=== PATIENT | female | born 1955 | race Caucasian/White ===

== ENCOUNTER 2019-06-13 14:18 | Emergency (ER) | payer OTHER, MEDICARE, SELFPAY ==
[2019-06-13 15:44] VITALS: BP 158/82; PULSE 88; RESP 16; TEMP 37; O2SAT 98; BMI 23.0
--- NOTE | 2019-06-13 15:47 | DI.RAD.S_ITS ---
PROCEDURE: XR HIP W PEL IF DONE RT 2V INDICATIONS: right hip pain shooting into groin TECHNIQUE: AP pelvis with lateral view(s) of the right hip(s). COMPARISON: [facility], CR, XR PELVIS WITH LATERAL HIP RIGHT, 05/06/2017, 13:55. [facility], [facility], [id number] W PEL IF PERFORMED, 04/21/2017, 9:22. [facility], CR, [id number] W PEL IF PERFORMED, 04/21/2017, 11:29. FINDINGS: Bones: No fractures or dislocations. Pelvic ring appears intact. No suspicious bony lesions. Unremarkable right hip arthroplasty hardware is seen. No findings of hardware failure or hardware loosening are seen. There is moderate superior joint space narrowing seen of the contralateral left hip, with associated remodeling changes with subchondral sclerosis and osteophyte formation. Soft tissues: The visualized bowel gas pattern is normal. No suspicious soft tissue calcifications. IMPRESSION: Unremarkable right hip arthroplasty hardware. Moderate left hip degenerative change. Dictated by: Mor Zepeda M.D. on 06/13/2019 at 15:13 Approved by: Mor Zepeda M.D. on 06/13/2019 at 15:14
--- NOTE | 2019-06-13 18:38 | ED.LOWEXIN ---
HPI - Extremity Injury (Lower) General Chief Complaint: Extremity Injury, Lower Stated Complaint: Extreme Right Hip Pain, Surgery 2 yrs ago Time Seen by Provider: 06/13/19 18:38 Source: patient Mode of arrival: Wheelchair Limitations: no limitations History of Present Illness HPI Narrative: The patient complains of right hip pain for about 1 week. She has had no trauma to the right hip. She has pain radiating from the right lower back to the right posterior hip. She underwent right YUNIOR about 2 years ago. The ear prior to the right hip surgery she underwent left foot surgery. She has recently seen a bundle tier and labeler because of an increased arch the left foot following surgery, and difficulty with flexion the left foot. She has been walking with a limp, though limp has increased. She has no numbness or weakness to the right leg. She has no bowel or bladder incontinence. There is no pain shooting down the right leg. She was evaluated for scoliosis as a child, scoliosis does not seem to ever been a clinical problem for her. She has no GI or symptoms. Related Data Home Medications Medication Instructions Recorded Confirmed adalimumab [Humira Pen 40 mg SQ #0 03/31/17 [id number] HS] amitriptyline 10 mg PO HS #0 03/31/17 cyclobenzaprine 10 mg PO QDAY #0 03/31/17 folic acid 2 mg PO QDAY #0 03/31/17 gabapentin [Neurontin] 600 mg PO QID #0 03/31/17 hydroxychloroquine [Plaquenil] 400 mg PO QDAY #0 03/31/17 methotrexate sodium [Trexall] 7.5 mg PO #0 03/31/17 simvastatin 10 mg PO QDAY #0 03/31/17 Previous Rx's Medication Instructions Recorded hydroxyzine pamoate [Vistaril] 25 mg PO Q4HP PRN #60 cap 04/23/17 oxycodone 5 mg PO Q4HP PRN #90 tab 04/23/17 ibuprofen 600 mg PO Q6-8H PRN #60 tab 06/13/19 tramadol 50 mg PO Q6H PRN #20 tab 06/13/19 Allergies Allergy/AdvReac Type Severity Reaction Status Date / Time No Known Allergies Allergy Uncoded 06/13/19 15:46 Review of Systems Review of Systems ROS Unobtainable: All systems reviewed & are unremarkable except as noted in HPI and below Constitutional Constitutional: Denies lethargy and Denies weakness Gastrointestinal Gastrointestinal: Denies abdominal pain, Denies change in bowel habits, Denies diarrhea, Denies nausea and Denies vomiting Genitourinary Genitourinary: Denies urinary incontinence and Denies urinary urgency Musculoskeletal Musculoskeletal: Reports back pain and Reports numbness (Right lateral calf) Comments: Instability when ambulating. Integumentary/Breasts Skin/Breast: Denies pruritus, Denies erythema, Denies rash and Denies wounds Neurologic Neurologic: Reports numbness (Right lateral calf) and Denies weakness Patient History Medical History (Updated 06/13/19 @ 19:18 by Victor Hugo Vasquez MD) Hyperlipidemia (Acute) Osteoarthritis (Acute) Surgical History (Updated 06/13/19 @ 19:18 by Victor Hugo Vasquez MD) H/O total hip arthroplasty (Acute) Status post left foot surgery (Acute) Social History Smoking Status: Never smoker alcohol intake frequency: holidays/special occasions only Substance Use Type: does not use Exam Initial Vital Signs Initial Vital Signs: Vital Signs Temperature 98.6 F 06/13/19 15:44 Pulse Rate 88 06/13/19 15:44 Respiratory Rate 16 06/13/19 15:44 Blood Pressure 158/82 H 06/13/19 15:44 Pulse Oximetry 98 06/13/19 15:44 Const General: cooperative and well developed Nutritional Appearance: well nourished Orientation: alert, awake and oriented x3 GI Inspection: non-distended Palpation: soft, no hepatosplenomegaly, No guarding and No tender Auscultation: normal bowel sounds Back/Spine/Pelvis Back: No CVA tenderness Other: Scoliosis. Right SI and right hip tenderness. No palpable abnormalities. Skin General: no rashes or lesions noted Neuro General: alert and oriented x3 Speech: speech normal Other: Weakness was left foot flexion. Decreased light touch sensation to the left L5 distribution. Extrem General: full ROM, no pedal edema and no calf tenderness Other: Increased large to the left foot, surgical changes to the left foot. Normal dorsalis pedis pulses bilaterally. Course Course Course Narrative: Pelvis and right hip x-ray show no acute findings. The right YUNIOR is stable. Her problem seems to be more focused from her lower back. She has scoliosis, ataxia, and left leg weakness. She is discharged on Motrin and tramadol, and advised to follow up with Orthopedics, Dr. Orosco. Orders Ordered: ED Orders 06/13/19 15:47 XR hip w pel if done RT 2V Stat Discontinued Medications Ketorolac Tromethamine (Toradol) 30 mg IM NOW ONE Stop: 06/13/19 18:50 Last Admin: 06/13/19 18:59 Dose: 30 mg Documented by: LANETTE Vital Signs Vital signs: Vital Signs - 8 hr 06/13/19 15:44 Temperature 98.6 F Pulse Rate 88 Respiratory Rate 16 Blood Pressure 158/82 H Pulse Oximetry 98 Discharge Plan Departure Patient Disposition: Home Clinical Impression: Acute pain of right hip Instructions: DI for Hip Pain Activity Restrictions/Additional Instructions: Use a cane when walking Motrin 600 mg every 6-8 hours as needed for pain. Tramadol every 6 hours as needed for added pain control. I recommend contacting Dr. Orosco, orthopedics, for follow-up regarding back/hip pain. Return to the ER as needed. Prescriptions: New ibuprofen 600 mg tablet 600 mg PO Q6-8H PRN (Reason: pain) Qty: 60 RF: 0 tramadol 50 mg tablet 50 mg PO Q6H PRN (Reason: pain) Qty: 20 RF: 0 No Action simvastatin 10 MG tablet 10 mg PO QDAY Qty: 0 RF: 0 gabapentin [Neurontin] 600 MG tablet 600 mg PO QID Qty: 0 RF: 0 amitriptyline 10 MG tablet 10 mg PO HS Qty: 0 RF: 0 adalimumab [Humira Pen Ppjf-Nntjjj-Acco HS] 40 MG/0.8 ML pen injector kit 40 mg SQ Qty: 0 RF: 0 methotrexate sodium [Trexall] 7.5 MG tablet 7.5 mg PO Qty: 0 RF: 0 cyclobenzaprine 10 MG tablet 10 mg PO QDAY Qty: 0 RF: 0 hydroxychloroquine [Plaquenil] 200 MG tablet 400 mg PO QDAY Qty: 0 RF: 0 folic acid 0.8 MG tablet 2 mg PO QDAY Qty: 0 RF: 0 oxycodone 5 MG tablet 5 mg PO Q4HP PRNQty: 90 RF: 0 hydroxyzine pamoate [Vistaril] 25 MG capsule 25 mg PO Q4HP PRNQty: 60 RF: 1 Referrals: Cristina Orosco MD [Physician] - Chrissy Looney PA-C [Primary Care Provider] -
[2019-06-13] MEDS: KETOROLAC 60 MG/2 ML VIAL 30 MG IM (18:59)
--- NOTE | 2019-06-13 19:11 | PC.NURSE ---
aching for couple weeks, sudden onset of pain today after getting up from lunch in hip radiating into groin.No injury or trauma. CMS intact. Slow gait with a limp.
[2019-06-13 19:12] VITALS: BP 152/68; PULSE 82; RESP 16; O2SAT 98
== END 2019-06-13 19:43 | disposition home or self-care (01) ==
PROVIDERS: Emergency Provider Emergency Medicine; Family Provider Physician Assistant Medical; PCP Physician Assistant Medical
DX: M25.551 Pain in right hip (principal)
CPT/HCPCS: 73502; 96372; 99282; 99283; J1885

== ENCOUNTER → 2019-08-02 08:44 | Outpatient (CLI) | payer OTHER, MEDICARE, SELFPAY ==
--- NOTE | 2019-08-02 | DI.MRI.S_ITS ---
PROCEDURE: MR LUMBAR SPINE WO CON INDICATIONS: CERVICALGIA LOW BACK PAIN TECHNIQUE: Noncontrast sagittal T1 spin echo and T2 fast echo, sagittal STIR, axial T1 and T2 fast spin echo through the lumbar spine. In cases with scoliosis, additional coronal T2 fast spin echo may be performed. COMPARISON: [facility] [place], CR, XR LUMBAR SPINE 2 OR 3 VIEWS, 07/13/2019, 13:23. FINDINGS: Image quality: Excellent. Alignment and Curvature: There is normal bony alignment. Bone Marrow: There is a intraosseous hemangioma in T12. No acute vertebral body compression fractures. Spinal Cord: Conus medullaris terminates at the L1-L2 level. Visualized cord demonstrates normal signal and size. Paraspinous Soft Tissues: No paravertebral masses. L1-L2: Preserved disc height. Mild disc desiccation. There is mild posterior disc bulge. Mild bilateral facet arthropathy and hypertrophy of ligamentum flavum. The central canal is patent. No foraminal stenosis. L2-L3: Mild loss disc height and disc desiccation. There is diffuse posterior disc bulge and disc osteophyte complex. Mild bilateral facet arthropathy and hypertrophy of ligamentum flavum. The central canal is mildly narrowed. No foraminal stenosis. L3-L4: Mild loss disc height and disc desiccation. There is diffuse posterior disc bulge and disc osteophyte complex. Moderate bilateral facet arthropathy and mild hypertrophy of ligamentum flavum. The central canal is mildly narrowed. Marked bilateral foraminal stenosis. L4-L5: Mild loss disc height and disc desiccation. There is diffuse posterior disc bulge. There is a small posterior central annular fissure. Mild bilateral facet facet arthropathy and hypertrophy of ligamentum flavum. The central canal is mildly narrowed. No foraminal stenosis. L5-S1: Mild loss disc height and disc desiccation. There is diffuse posterior disc bulge. There is a small posterior central annular fissure. Mild bilateral facet arthropathy. The central canal is patent. No foraminal stenosis. 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 IMPRESSION: 1. Multilevel degenerative disc disease and facet arthropathy as described. 2. Mild central canal stenosis at L2-L3, L3-L4, and L4-L5. 3. Mild foraminal stenosis at L3-L4 bilaterally. Dictated by: Zee Kwok M.D. on 08/02/2019 at 10:30 Approved by: Zee Kwok M.D. on 08/02/2019 at 10:42
--- NOTE | 2019-08-02 | DI.MRI.S_ITS ---
PROCEDURE: MR CERVICAL SPINE WO CON INDICATIONS: CERVICALGIA LOW BACK PAIN TECHNIQUE: Noncontrast sagittal T1 spin echo and T2 fast spin echo, sagittal STIR, foraminal oblique sagittal T2 fast spin echo, and axial gradient echo or T2 fast spin echo through the cervical spine. COMPARISON: None. FINDINGS: Image quality: Excellent. Alignment and Curvature: There is grade one anterolisthesis at C3-C4 and C5 and C5. Bone Marrow: Marrow demonstrates normal overall signal. Spinal Cord: Visualized spinal cord has normal size and signal. No cerebellar tonsillar herniation. Paraspinous Soft Tissues: No paravertebral masses. Prevertebral soft tissues are normal in thickness. C2-C3: Normal appearance. C3-C4: Preserved disc height. Mild disc desiccation. There is mild posterior disc bulge. Moderate right and mild left facet arthropathy. The central canal is patent. Mild right foraminal stenosis. No left foraminal stenosis C4-C5: Preserved disc height. Mild disc desiccation. There is mild posterior disc bulge. Moderate right and mild left facet arthropathy. The central canal is patent. Mild foraminal stenosis bilaterally. C5-C6: Moderate loss of disc height and disc desiccation. There is posterior disc bulge. Mild bilateral facet arthropathy. The central canal is mildly noted. Mild left foraminal stenosis. No right adnexal foraminal stenosis. C6-C7: Moderate loss of disc height and disc desiccation. There is diffuse posterior disc bulge and disc osteophyte complex. Mild bilateral facet arthropathy. The central canal is mildly noted. Mild bilateral foraminal stenosis. C7-T1: Normal appearance. IMPRESSION: 1. Multilevel degenerative disc disease and facet arthropathy as described. 2. Mild central canal stenosis at C5-C6 and C6-C7. 3. Mild foraminal stenosis at C4-C5 bilaterally, C5-C6 on the left and C6-C7 bilaterally. Dictated by: Zee Kwok M.D. on 08/02/2019 at 11:13 Approved by: Zee Kwok M.D. on 08/02/2019 at 11:30
== END ==
PROVIDERS: Family Provider Physician Assistant Medical; PCP Physician Assistant Medical; Visit Provider Physical Medicine & Rehabilitation
DX: M54.5 Low back pain (principal); M50.31 Other cervical disc degeneration, high cervical region; M51.36 Other intervertebral disc degeneration, lumbar region; M51.37 Other intervertebral disc degeneration, lumbosacral region; M48.02 Spinal stenosis, cervical region; M48.061 Spinal stenosis, lumbar region without neurogenic claudication; M48.07 Spinal stenosis, lumbosacral region; M47.812 Spondylosis without myelopathy or radiculopathy, cervical region; M47.816 Spondylosis without myelopathy or radiculopathy, lumbar region; M47.817 Spondylosis without myelopathy or radiculopathy, lumbosacral region
CPT/HCPCS: 72141; 72148

== ENCOUNTER → 2020-11-03 09:41 | Outpatient (CLI) | payer OTHER, MEDICARE, SELFPAY ==
--- NOTE | 2020-11-03 09:48 | DI.MRI.S_ITS ---
PROCEDURE: MR HIP LT WO CON INDICATIONS: Sarcoid arthropathy TECHNIQUE: Noncontrast coronal T1 spin echo and STIR through the bony pelvis. Coronal and axial T2 fast spin echo with fat saturation, sagittal T1 spin echo, and oblique axial T2 fast spin echo with fat saturation through the hip. COMPARISON: [facility] [place], CR, XR PELVIS WITH LATERAL HIP LEFT, 07/13/2019, 13:29. FINDINGS: Image quality: Excellent. Bones and joints: There is prior right total hip arthroplasty with significant susceptibility artifacts. Moderate to severe left hip joint osteoarthritic changes are seen with joint space narrowing, subchondral sclerosis and marrow edema. Geographic area of T1 and T2 hypointense signal with surrounding marrow edema involving weight-bearing portion of femoral head is seen concerning for early avascular necrosis of femoral head. No acute fracture or dislocation. No other area of abnormal marrow signal. The visualized lower lumbar spine appears normally aligned. Small to moderate amount of left hip joint effusion is seen with thickened synovial lining concerning for low-grade synovitis. Tendons and ligaments: The gluteus medius and minimus tendons appear intact, without associated muscle atrophy. The nearby proximal iliotibial band also appears intact. The iliopsoas tendon appears intact, without adjacent bursal fluid collections or evidence for impingement syndrome. The origin of the hamstring tendon is intact at the ischial tuberosity, as well as the associated sacrotuberous ligament. The straight and reflected heads of the rectus femoris muscle origin appear intact, as well as the conjoint tendon. The ligamentum teres appears intact where visualized. Labrum and cartilage: There is suggestion of extensive left hip labral tear with global signal abnormality. Complete loss of articulating cartilages in left femoral head is also seen. Soft tissues: Visualized muscles demonstrate normal bulk and internal signal. Quadratus femoris muscle demonstrates no internal edema to suggest ischiofemoral impingement. The proximal sciatic neurovascular bundle appears normal adjacent to the hamstring tendons. No free pelvic fluid. Bladder wall thickness is normal. Genitourinary structures and bowel loops appear normal where visualized. IMPRESSION: 1. Severe left hip joint osteoarthritis with suggestion of early avascular necrosis involving medial weight-bearing portion of femoral head. No fracture or dislocation. No other area of abnormal marrow signal. Prior right total hip arthroplasty. 2. Suggestion of extensive left hip labral tear. 3. No gross muscle or tendon signal abnormality. Small to moderate amount of joint fluid with suggestion of low-grade synovitis. Dictated by: Angelo Kingsley M.D. on 11/05/2020 at 8:11 Approved by: Angelo Kingsley M.D. on 11/05/2020 at 8:43
== END ==
PROVIDERS: Family Provider Physician Assistant Medical; PCP Physician Assistant Medical; Referring Provider Internal Medicine Rheumatology; Visit Provider Internal Medicine Rheumatology
DX: D86.86 Sarcoid arthropathy (principal); M16.12 Unilateral primary osteoarthritis, left hip; D86.0 Sarcoidosis of lung
CPT/HCPCS: 73721

== ENCOUNTER → 2021-02-27 08:49 | Outpatient (CLI) | payer OTHER, MEDICARE, SELFPAY ==
[2021-02-27 11:02] LABS: COVID19 -Nasal RAPID Negative (Negative)
== END ==
PROVIDERS: Family Provider Physician Assistant Medical; PCP Physician Assistant Medical; Visit Provider Physician Assistant
DX: Z01.812 Encounter for preprocedural laboratory examination (principal); Z20.822 Contact with and (suspected) exposure to COVID-19
CPT/HCPCS: 87635

== ENCOUNTER 2021-03-01 10:54 | Observation (INO) | payer OTHER, MEDICARE, SELFPAY ==
[2021-02-26 07:25] VITALS: BMI 27.4
[2021-02-28] VITALS (12 sets, daily range): BP systolic 91–127; BP diastolic 41–67; PULSE 73–78; RESP 14–20; TEMP 36–36.7; O2SAT 92–99; BMI 27.4
[2021-02-28] MEDS: VANCOMYCIN 1,000 MG/200 ML PIGGYBACK 200 MG IV (07:15)
[2021-02-28] MEDS: LACTATED RINGERS 1,000 ML 42 ML IV ×2 (07:15→09:13)
--- NOTE | 2021-02-28 07:35 | PM.PREOP ---
Pre-operative Note COVID-19 COVID-19 status: Negative Interval Note History & Physical reviewed/Exam performed by Physician: Yes Changes to H&P: No
--- NOTE | 2021-02-28 07:37 | P.OP_ITS ---
Operative Date/Time/Diagnoses Date of procedure: 02/28/21 Time of procedure: 08:05 Pre-op diagnosis: left hip OA Post-op diagnosis: same Procedure & Clinicians Procedure: Left total hip arthroplasty anterior approach Same procedure as scheduled: Yes Indications: The patient has had progressively worsening left hip pain with radiographic changes consistent with arthritis. Non-operative management has failed and the patient has requested total hip replacement. The risks, benefits and alternatives to surgery were discussed with the patient prior to proceeding. Risks discussed included, but were not limited to, failure to relieve pain, leg length discrepancy, dislocation, stiffness, infection, nerve damage, deep venous thrombosis, pulmonary embolism, stroke, coma, heart attack, permanent paralysis and , as well as the potential need for eventual revision of the prosthetic. Surgeon: Cristina Orosco Manager Development: Sliver Michele Anesthesia Type: Spinal Operative Notes Findings: Severe left hip osteoarthritis, soft bone adequate stability Closure Type: primary Specimen(s): none sent Prosthetic devices, grafts, tissues, transplants, or devices: Orosco and nephew size 4 anthology, size 48 R3 cup, -3 Oxinium head, one 20mm screw Estimated Blood Loss (mL): 250 Blood products transfused: none Procedure in detail: The patient was brought to the operating room. Patient was carefully positioned in the supine position. Time-out was performed and antibiotics were given. Anesthesia was induced. She was positioned in the on the table in order to allow hyperextension of the hip. The left hip lower extremity was prepped and draped in a standard sterile fashion. An anterior left hip incision was made 1 fingerbreadth lateral to the anterior superior iliac spine and extended distally towards the greater trochanter. Dissection was carried out through skin and subcutaneous tissues. Superficial hemostasis was achieved. The fascia over the tensor fascia alvin was defined and incised with a knife. Two Allis clamps were used to grasp the fascia. Tensor fascia alvin was retracted laterally. A gelpi retractor was placed. Dissection was carried out down along the neck. The circumflex vessels were carefully identified and cauterized with the Aqua Mantis. There was good visualization of the femoral neck. A Cobra was placed superior to the neck and the gluteus fibers were carefully stripped from that superior aspect of the capsule. A 2nd retractor was placed along the inferior aspect of the neck. The rectus insertion along the capsule was partially released. A 3rd retractor that was then gently placed over the rim of the acetabulum under the rectus. Capsule was carefully incised and released from the intertrochanteric line circumferentially superior to the mid sagittal line and inferiorly to the mid sagittal line until the lesser trochanter was palpable. A tag stitch was placed both in the superior and inferior limb of the capsular insertion. Along the acetabulum capsule was also released up to the mid sagittal 12:00 position. A portion of the labrum was resected. A saw was used to perform an osteotomy at the level of the intertrochanteric line and the junction of the superior femoral neck leaving approximately 1 finger breath of residual inferior neck above the lesser trochanter. A 2nd cut was made along the femoral neck at the base of the head and a napkin ring of neck was removed. Corkscrew was placed in the femoral head and the head was removed without difficulty. Retractors were then repositioned around the acetabulum. Residual labrum was resected and additional osteophytes were removed. A reamer that was 4 mm below the templated size was placed by hand in the acetabulum and it was reamed to centralize the acetabulum. It was then reamed up to 2 under the templated size and fluoroscopy was brought in to confirm the position of the reaming and depth of reaming. I reamed 1 under the anticipated size. A trial cup was placed and noted that it was appropriately sized and fluoroscopy confirmed position and depth. The component was open and inserted without difficulty fluoroscopic imaging was used to confirm that the cup had been adequately seated and was well positioned. Neutral poly liner was placed. It was further stabilized with a single screw. The cup was tested and noted to be stable. Attention was then directed to the femur. The femur was gently hyperextended additional capsular release was performed as needed in order to allow adequate visualization of the proximal femur with elevation of the femur. Patient was placed in a hyperextended slightly adducted position with maximum external rotation. Box osteotome was used to check for any residual neck as well as sclerotic bone along the trochanter. [place] pepper was placed in the femur. Additional broaching was performed. Canal finder was used to determine the alignment of the canal and position. Size 1 broach was placed. The canal was then appropriately broached up to the templated size as long as there was adequate stability of the broach and serial advancement of the broach without excessive impingement. Specific attention was directed at avoiding varus attempting to direct the distal aspect of the broach more anteriorly and avoiding excessive anteversion. Trial reduction showed acceptable range of motion, good stability, no posterior impingement, jehovah's witness of leg length and appropriate lateral shuck. I also hyperflexed the hip and checked that there was no impingement anteriorly and there was good stability with flexion, adduction and internal rotation. Marcaine and Exparel were injected. The stem was placed without difficulty. Repeat trial reduction and x-ray showed acceptable overall position, length, and no evidence of the femoral fracture. Final head was placed. Wound was meticulously irrigated with normal saline. The hip was reduced and additional Exparel and Marcaine were injected. The capsule was closed with interrupted nonabsorbable sutures. The fascia of the tensor was closed with interrupted and running Vicryl. No drain was placed. Any tensor fascia alvin muscle that appeared to be contused or injured which was a minimal amount was carefully resected. Capsule around the tensor was injected with Exparel and Marcaine. The skin was closed with barbed stitches for the subcutaneous tissue and skin. We also used surgical glue. The wound was dressed sterilely. Brief Betadine soak was also used and was meticulously irrigated with normal saline. Patient was transferred to recovery room in satisfactory condition. Complications: none Post-operative Condition: stable Disposition: Acute Care Plan for aftercare: The patient will be maintained on a standard total hip replacement protocol with weight bearing as tolerated and anterior hip precautions. The patient will receive Aspirin and sequential compression devices for DVT prophylaxis. The patient will be discharged home when safe for the home environment.
[2021-02-28] MEDS: ACETAMINOPHEN 325 MG TABLET 975 MG PO (07:42)
[2021-02-28] MEDS: CELECOXIB 200 MG CAPSULE PO (07:43)
[2021-02-28] MEDS: PREGABALIN 75 MG CAPSULE PO (07:43)
[2021-02-28] MEDS: CEFAZOLIN 1 GM VIAL 2 GM IV ×2 (08:26→17:00)
[2021-02-28] MEDS: HYDROCORTISONE 100 MG/2 ML VIAL IV (08:30)
[2021-02-28] MEDS: TRANEXAMIC ACID 1,000 MG VIAL 1000 MG INJ ×2 (08:33→10:23)
--- NOTE | 2021-02-28 08:37 | SUR.OPER ---
Patient supine on padded Donald table, one arm on padded arm board at <90, other arm padded and secured with tape across patient's chest, both legs secured in padded traction boots and positioned per surgeon, padded post at patient's groin, pressure points checked and padded.
[2021-02-28] MEDS: BUPIVACAINE 0.25% W/ EPI 30 ML VIAL 60 ML INJ (08:50)
[2021-02-28] MEDS: SODIUM CHLORIDE IRRIG SOLUTION 250 ML, POVIDONE-IODINE SPONGE STICKS 1 APPLIC IRR (08:51)
[2021-02-28] MEDS: BUPIVACAINE LIPOSOME 266 MG/20 ML VIAL INJ (08:51)
--- NOTE | 2021-02-28 11:00 | DI.RAD.S_ITS ---
PROCEDURE: XR HIP W PEL IF DONE LT 2V INDICATIONS: LT ANTERIOR HIP post op TECHNIQUE: AP pelvis with lateral view(s) of the left hip(s). COMPARISON: [facility], [facility], XR HIP W PEL IF DONE RT 2V, 06/13/2019, 15:47. FINDINGS: Bones: Expected alignment of left hip arthroplasty. No fracture seen. Soft tissues: Postsurgical soft tissue changes. IMPRESSION: Expected postoperative appearance. Dictated by: Jsapreet Coulter M.D. on 02/28/2021 at 14:23 Approved by: Jaspreet Coulter M.D. on 02/28/2021 at 14:24
--- NOTE | 2021-02-28 13:05 | PC.NURSE ---
Addendum entered by Yelena Chaidez R.N. 02/28/21 14:37: Patient tolerated some pudding and water. She appears comfortable and denies pain. Resting comfortably at this time. Original Note: Assess- Patient is awake and on 2L of oxygen. Her lung sounds are cta, and she is 98%. 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 Patient has oxygen at home but does not often wear it as the machine to big to move around. Patient has an aquacel to her l.anterior hip that is cdi. She denies pain. Skin assessment done and can be found under physical assessment. Patient denies any numbness or tingling and her ppx2. She is resting in bed with hob up. She did complain of slight nausea but this seems to have resolved.
[2021-02-28] MEDS: LACTATED RINGERS 1,000 ML 125 ML IV ×2 (13:17→21:31)
[2021-02-28] MEDS: GABAPENTIN 600 MG TABLET PO (13:17)
[2021-02-28] MEDS: IBUPROFEN 400 MG TABLET PO ×3 (13:17→20:51)
[2021-02-28] MEDS: ACETAMINOPHEN 325 MG TABLET 650 MG PO ×2 (14:44→20:51)
[2021-02-28] MEDS: ONDANSETRON 4 MG ODT PO (14:57)
[2021-02-28] MEDS: HYDROCORTISONE 100 MG/2 ML VIAL 50 MG IV (17:26)
[2021-02-28] MEDS: ONDANSETRON 4 MG/2 ML INJ IV (17:27)
[2021-02-28] MEDS: LOSARTAN 50 MG TABLET PO (20:47)
[2021-02-28] MEDS: AMITRIPTYLINE 25 MG TABLET 50 MG PO (20:51)
[2021-02-28] MEDS: AMLODIPINE 5 MG TABLET PO (20:51)
[2021-02-28] MEDS: ASPIRIN EC 81 MG TABLET PO (20:51)
[2021-02-28] MEDS: ROPINIROLE 1 MG TABLET 3 MG PO (20:52)
[2021-02-28] MEDS: PANTOPRAZOLE DR 20 MG TABLET PO (20:52)
[2021-02-28] MEDS: DOCUSATE 100 MG CAPSULE PO (20:52)
[2021-02-28] MEDS: GABAPENTIN 300 MG CAPSULE 900 MG PO (20:52)
[2021-02-28] MEDS: MONTELUKAST 10 MG TABLET PO (20:53)
--- NOTE | 2021-02-28 22:59 | PM.CN ---
History of Present Illness Consult details Date Patient Seen: 02/28/21 Time Patient Seen: 22:59 Chief complaint: OPB Narrative: Patient is a 65-year-old female who was admitted to the hospital for severe left hip osteoarthritis and underwent a total left hip repair by Dr. Orosco, the patient also has sarcoidosis with home O2 with impaired pulmonary function she had been on chronic steroid treatment and Dr. Orosco was concerned for adrenal insufficiency. Dr. Orosco has requested that we consult for management of the patient's steroids. Patient was started on 40 mg of prednisone June 2020, she then titrated down August of 2020 to 20 mg once daily, then in November she was tapered down to 10 mg q.day, and then she was further tapering down and stopped approximately 7 days ago. Patient had not been advised that she had developed adrenal insufficiency or that she would require chronic steriod use, and has not had a work up. Patient denies recent weight loss, abdominal pain, nausea or vomiting prior to surgical procedure, cutaneous hyperpigmentation of face, gums, elbows,or knees, low blood sugars, fevers, or hypotension. Meds Home Medications and Allergies Home Medications Medication Instructions Recorded Confirmed Type cyclobenzaprine 10 mg tablet 10 mg PO TID PRN #0 03/31/17 02/28/21 History gabapentin 600 mg tablet 600 mg PO SEEINSTR #0 03/31/17 02/28/21 History (Neurontin) hydroxychloroquine 200 mg tablet 400 mg PO QDAY #0 03/31/17 02/28/21 History (Plaquenil) acetaminophen 500 mg tablet 1,000 mg PO BID PRN 02/26/21 02/28/21 History albuterol sulfate 90 mcg/actuation 2 puff INHALATION Q4-6H PRN 02/26/21 02/28/21 History aerosol inhaler amitriptyline 50 mg tablet 50 mg PO BEDTIME 02/26/21 02/28/21 History amlodipine 5 mg tablet 5 mg PO BID 02/26/21 02/28/21 History ciclesonide 80 mcg/actuation 1 puff INHALATION BID 02/26/21 02/28/21 History aerosol inhaler folic acid 1 mg tablet 1 - 5 mg PO DAILY 02/26/21 02/28/21 History losartan 50 mg tablet 50 mg PO BID 02/26/21 02/28/21 History meloxicam 7.5 mg tablet 7.5 mg PO BID 02/26/21 02/28/21 History montelukast 10 mg tablet 10 mg PO BID 02/26/21 02/28/21 History naproxen sodium 220 mg tablet 220 mg PO BID PRN 02/26/21 02/28/21 History omeprazole 20 mg tablet,delayed 20 mg PO BID 02/26/21 02/28/21 History release ropinirole 3 mg tablet 3 mg PO BEDTIME 02/26/21 02/28/21 History Allergies Allergy/AdvReac Type Severity Reaction Status Date / Time adhesive AdvReac Mild Rash Verified 02/28/21 06:49 Review of Systems Review of Systems Narrative: All systems reviewed with the patient and are negative except otherwise documented. Exam Vital Signs (past 8 hours): - 02/28/21 20:47 Pulse Rate 77 Blood Pressure 127/65 Oxygen Delivery Method Nasal Cannula Oxygen Flow Rate 2 Narrative Exam Narrative: General: Patient is a well-developed, well-nourished in no distress at this time. HEENT: Normocephalic, atraumatic, extraocular muscles intact, oral pharynx is clear and mucous membranes are moist. Neck is supple and symmetric, trachea is midline, no adenopathy, no thyroid enlargement, nontender, no masses palpated. Negative for JVD Chest: Normal AP diameter and contour without kyphoscoliosis, no nasal flaring, retractions, or tachypneic labored Lungs: Auscultation of all lung alvarado are clear without adventitious sounds, wheezes, rhonchi, or rales. Cardio: S1 & S2 with regular rate and rhythm without murmur, rubs, or gallops, no carotid bruit, no cardiac pulsations present. Abdomen: Soft nontender, negative for organomegaly, or masses. Bowel sounds are present in all 4 quadrants without guarding or rebound, no CVA tenderness. Musculoskeletal: Right hip has a vertical bandage in place over incision site, no erythema, inflammation, drainage, clean dry and intact. Bilateral Radial and pedal pulses are normal, no edema noted. Skin: Warm dry and intact without rashes, ulcerations or petechiae. Neuro: Alert and orientated x3, sensation to touch intact, no gross deficits noted of cranial nerves. Psych: Patient has a well-kept appearance, appropriate affect, mental status attitude thought context and judgment are appropriate for age. Assessment & Plan Assessment & Plan narrative: 1. Total left hip replacement, acute, present on admission -managed by Dr. Orosco orthopedic 2. Chronic steroid use secondary to sarcoidosis, acute on chronic, present on admission -patient was on chronic prednisone usage from 06/2020 to 02/22/2021 during this time patient was tapered down from 40 mg prednisone over 8 months. Patient denies any signs or symptoms of adrenal insufficiency/adrenal crisis as of completion of her steroids approximately 1 week ago. Patient has received approximately 200 mg of hydrocortisone in the past 24 hours. Based on the length of the patient's taper, and her absence of symptoms after stopping prednisone, my suspicion is low for chronic adrenal insufficiency. -stopped hydrocortisone 50mg q.6 orders. -monitor for hypotension, tachycardia, altered level of consciousness, worsening abdominal pain, nausea, vomiting -ordered a.m. cortisol testing to evaluate for adrenal insufficiency. If a.m. cortisol levels are low I have put in reflex orders to complete ACTH cortisol stimulation test tomorrow. For quantitative confirmation of chronic adrenal insufficiency. -If stimulation test is Low/abnormal, patient will require education/handout regarding adrenal insufficiency. Attempt Steriod jasvir with prednisone starting at 40mg Qday, and reducing by 10mg Q week x 4 weeks with follow up with her PCP after completing to ensure resolution of adrenal insufficiency. -I suspect patient's cortisol testing will be normal in the morning, if it is the patient will not require any further steroid treatments. -Our service would be happy to follow up tomorrow regarding cortisol results in the a.m. and we appreciate the opportunity to assist in the care of Dr. Orosco's patient. Code status: Full code Surrogate decision maker: El Wright Spouse COVID PCR: Negative DVT/VTE prophylaxis: Managed by Dr. Orosco Estimated length of stay: To be determined by Dr. Orosco
[2021-03-01] VITALS (8 sets, daily range): BP systolic 97–141; BP diastolic 46–73; PULSE 71–98; RESP 16–22; TEMP 35.9–37; O2SAT 96–100
[2021-03-01] MEDS: HYDROCORTISONE 100 MG/2 ML VIAL 50 MG IV (00:04)
[2021-03-01] MEDS: CEFAZOLIN 1 GM VIAL 2 GM IV (00:06)
[2021-03-01] MEDS: IBUPROFEN 400 MG TABLET PO ×6 (00:09→20:31)
[2021-03-01] MEDS: CYCLOBENZAPRINE 10 MG TABLET PO (00:12)
[2021-03-01 05:57] LABS: Hematocrit 30.9 % (36-46); Hemoglobin 10.3 g/dL (12.0-16.0)
[2021-03-01 06:09] LABS: Alanine Aminotransferase 25 IU/L (<35); Albumin Globulin Ratio 1.3 (1.0-2.8); Alkaline Phosphatase 86 U/L (38-126); Aspartate Aminotransferase 37 IU/L (14-36); Bilirubin Total 0.3 mg/dL (0.2-1.3); Blood Urea Nitrogen 16 mg/dL (7-17); Calcium 8.7 mg/dL (8.4-10.2); Carbon Dioxide 25 mmol/L (22-32); Chloride 104 mmol/L (98-107); Estimated Glomerular Filt Rate > 60.0 mL/min (>60); Globulin 2.4 g/dL (1.7-4.1); Glucose 125 mg/dL (80-110); HEMOLYSIS < 15 (0-50); Potassium 4.1 mmol/L (3.4-5.1); Sodium 133 mmol/L (137-145); Total Protein 5.4 g/dL (6.3-8.2)
[2021-03-01 06:34] LABS: TSH w/ Reflex to FT4 0.26 uIU/mL (0.47-4.68)
[2021-03-01 06:35] LABS: Cortisol AM (Before 10AM) 23.1 ug/dL (4.46-22.7)
[2021-03-01 07:02] LABS: Free T4, Direct Thyroxine 1.29 ng/dL (0.78-2.19)
--- NOTE | 2021-03-01 07:50 | P.PN_ITS ---
Subjective Subjective Date Patient Seen: 03/01/21 Time Patient Seen: 07:50 Interval history: Patient's pain is [id number]. Denies fever or chills. Patient has had some nausea and vomiting overnight. Exam Vital Signs (past 8 hours): - 03/01/21 04:10 03/01/21 07:44 Temperature 98.6 F Pulse Rate 77 Respiratory Rate 22 Blood Pressure 129/73 Pulse Oximetry 100 98 Oxygen Delivery Method Nasal Cannula Oxygen Flow Rate 1 Narrative Exam Narrative: 65-year-old female resting comfortably in bed in no apparent distress. Dressing is Clean, dry, intact.. Motor functions intact bilateral lower extremity. Sensation grossly intact to light touch bilateral lower extremities. Objective Labs Result Diagrams: 03/01/21 05:33 03/01/21 05:33 Labs: Laboratory Results - last 24 hr 03/01/21 03/01/21 03/01/21 05:33 05:33 05:33 Hgb 10.3 L Hct 30.9 L Sodium 133 L Potassium 4.1 Chloride 104 Carbon Dioxide 25 BUN 16 Creatinine 0.47 L Estimated GFR > 60.0 BUN/Creatinine Ratio 34.0 H Glucose 125 H Calcium 8.7 Total Bilirubin 0.3 AST 37 H ALT 25 Alkaline Phosphatase 86 Total Protein 5.4 L Albumin 3.0 L Globulin 2.4 Albumin/Globulin Ratio 1.3 TSH Free T4 Cortisol AM Sample 23.1 H 03/01/21 05:33 Hgb Hct Sodium Potassium Chloride Carbon Dioxide BUN Creatinine Estimated GFR BUN/Creatinine Ratio Glucose Calcium Total Bilirubin AST ALT Alkaline Phosphatase Total Protein Albumin Globulin Albumin/Globulin Ratio TSH 0.26 L Free T4 1.29 Cortisol AM Sample [facility] Medical History Abrasion (02/25/21) Anxiety Asthma Chronic pain disorder Depression Easy bruisability Elevated coronary artery calcium score Fibromyalgia GERD (gastroesophageal reflux disease) HTN (hypertension) Hyperlipidemia ILD (interstitial lung disease) Osteoarthritis RBBB (right bundle branch block) Sarcoid neuropathy Sarcoidosis Surgical History H/O total hip arthroplasty (04/21/17) History of bunionectomy of left great toe (10/2015) History of hysterectomy History of lung biopsy Hx of cardiac cath Hx of tonsillectomy Family History Mother COPD (chronic obstructive pulmonary disease) Cancer Hypertension Father Aneurysm Asthma Social History household members: spouse and children occupational status: other (Retired) Smoking Status: Never smoker alcohol intake: current (1 glass of wine Qnight) Assessment & Plan Post-op Postoperative Procedures: Procedures Operation Date: 02/28/21 07:45 Actual Procedure Side Surgeon p Total Hip Arthroplasty/Anterior Approach Left Cristina Orosco MD Postoperative day: 1 Postoperative status narrative: Stable. Postoperative plan narrative: Status post left total hip arthroplasty, anterior approach Standard total hip replacement protocol with weight-bearing as tolerated and anterior hip precautions. Aspirin for DVT prophylaxis. Patient will work with physical therapy and discharge home when safe for home environment. No physical therapy notes available at this time. Internal medicine's been consulted Appreciate Internal Medicine recommendations and assistance managing multiple medical problems. Quality VTE Deep Vein Thrombosis/Pulmonary Embolism Present on Admission: No
[2021-03-01] MEDS: FOLIC ACID 1 MG TABLET PO (09:05)
[2021-03-01] MEDS: ACETAMINOPHEN 325 MG TABLET 650 MG PO ×3 (09:05→20:30)
[2021-03-01] MEDS: HYDROXYCHLOROQUINE 200 MG TABLET 400 MG PO (09:05)
[2021-03-01] MEDS: GABAPENTIN 600 MG TABLET PO ×2 (09:05→14:20)
[2021-03-01] MEDS: PANTOPRAZOLE DR 20 MG TABLET PO ×2 (09:05→20:30)
[2021-03-01] MEDS: ASPIRIN EC 81 MG TABLET PO ×2 (09:06→20:29)
[2021-03-01] MEDS: DOCUSATE 100 MG CAPSULE PO ×2 (09:06→20:30)
[2021-03-01] MEDS: GABAPENTIN 300 MG CAPSULE 900 MG PO ×2 (09:07→20:30)
--- NOTE | 2021-03-01 10:48 | PC.NURSE ---
Addendum entered by Yelena Chaidez R.N. 03/01/21 13:58: Patient has been moving around with one person assist and walker, she is doing well. Using tylenol and ibuprofen with good pain control. Original Note: Patients l. anterior hip dressing is aquacel, cdi. She complains of pain 4/10, given ibuprofen and tylenol earlier this am. Patient states constantly that she just does not feel well, she has had some dizziness. Per patient this is not new. Blood Pressure medication held earlier as bp was 100s/50s. She gave herself a shower and is back on 1.5l of oxygen. Patient has a hx of Innerstital lung disease. BS cta, 94%. She states that her sats drop when she gets up and is more active. Patient has oxygen at home but is does not use it because the machine is hard to wheel around. CMS wnl and ppx2. She is sitting up in the chair comfortably now. Will assess pain level again and see if patient needs some oxycodone.
--- NOTE | 2021-03-01 10:51 | PT.IIE ---
Current Diagnoses Unilateral primary osteoarthritis, left hip (03/01/21) Surgery Performed Operation Date: 02/28/21 07:45 Actual Procedures p Total Hip Arthroplasty/Anterior Approach(Left) - Cristina Orosco MD Medical History (Last Reviewed 03/01/21 @ 07:51 by Dominik Ibarra PA-C) Abrasion (02/25/21) Anxiety Asthma Chronic pain disorder Depression Easy bruisability Elevated coronary artery calcium score Fibromyalgia GERD (gastroesophageal reflux disease) HTN (hypertension) Hyperlipidemia ILD (interstitial lung disease) Osteoarthritis RBBB (right bundle branch block) Sarcoid neuropathy Sarcoidosis Physical Therapy Inpatient Evaluation/Re-Eval M1 PT/OT-IP Prior Functional Status Start: 03/01/21 13:12 Freq: NEEDED Status: Active Protocol: Document 03/01/21 10:51 AB (Rec: 03/01/21 13:30 AB [id number]) Medical Review Prior Functional Status Medical History Reviewed Yes Communication able to make needs known Mobility and Gait pt stated that she is modified independent with all mobilities and ambulation without AD Social History Household Members children Living Arrangements House Number of Floors (Floors) One Floor Number of Stairs To Enter/Railing? 1 step to enter Home Environment High Toilet,Walk in Shower Home Equipment Four Wheel Walker,Shower Seat without Backrest,Hand Held Shower,Leg Silver Lap Machine Tender,Grab Bars Near Toilet,Grab Bars In Shower Additional Social History Comment pt stated that her son lives with her and can assist when he is not at work; stated that her spouse from [place] will be coming tonight to assist her but only will be staying until thursday. Pt plans to sleep on her couch M2 PT-IP Current Condition Start: 03/01/21 13:12 Freq: NEEDED Status: Active Protocol: Document 03/01/21 10:51 AB (Rec: 03/01/21 13:30 AB [email or web address]) Physical Therapy Current Condition Current Condition Evaluation Date 03/01/21 Treatment Diagnosis s/p L YUNIOR anterior approach; difficulty in walking Onset Date 02/28/21 Precautions Anterior Hip Precautions No Hip Extension,No Hip External Rotation Weight Bearing Status Weight Bearing Status Weight Bear as Tolerated Allowed Weight Bearing Amount (enter % LLE WBAT or #) (%) M3 PT-IP Subjective Start: 03/01/21 13:12 Freq: NEEDED Status: Active Protocol: Document 03/01/21 10:51 AB (Rec: 03/01/21 13:30 AB [email or web address]) Subjective Physical Therapy Visit Type Type Initial Evaluation Visit Start Time 10:51 Visit Stop Time 11:38 Total Visit Minutes 47 Number of SINGING TEACHER Visits 0 Physical Therapy Visit Comments Patient Comments agreeable to do PT Therapy Pain Assessment Pain When Pain Assessed At Rest Pain Present Pain Present Pain Reported Location Left Hip Intensity 5 Scale Used Numeric (0 - 10) Pain Management Techniques Apply Cold,Modification of Treatment,Re-positioning, Timing of Activity with Medications M4 PT-IP Mobility and Gait Start: 03/01/21 13:12 Freq: NEEDED Status: Active Protocol: Document 03/01/21 10:51 AB (Rec: 03/01/21 13:30 AB [email or web address]) PT-Bed Mobility Assessment Supine to Sit Supine to Sit Maximum Assistance,1 Person Assistance Sit to Supine Sit to Supine Maximum Assistance,1 Person Assistance PT-Transfer Assessment Sit to and From Stand Sit to and from Stand Minimal Assistance,1 Person Assistance,Use of Upper Extremities Equipment Transfer Assistive Device Gait Belt,Front Wheeled Walker Orthotic/Prosthetic Devices or Brace: No Transfers Transfer Destination Bed Transfer Technique ambulated Transfer Ability Level of Assist Minimal Assistance,Moderate Assistance,1 Person Assistance ,Use of Upper Extremities Comments Mobility Comments BP: 123/73 pt sitting on chair and agreed to do PT. pt stated that she uses O2 on/ off at home depending on task and SOB. O2 sat with O2 on 98 -100%. O2 sat at room air: 94 -96%. reviewed hip precautions with pt and pt required cues to recall. completed sit to stand min A from bed. ambulated ~ 5 ft using 4WW with cues min to mod A and pt started to stooped forward and stated that she feels dizzy. instructed to sit down and pt was able to sit on EOB. BP checked: 136/ 89. pt rested. educated pt on safety. pt completed sit to stand min A from EOB and ambulated using FWW min to mod A and cues ~ 10 ft. completed sit<>supine max A and cues. pt completed ambulation back to the chair ~ 12 ft using FWW min to mod A and cues. positioned pt on chair. call light and table placed within reach. BP: 134/ 65. O2 sat at room air after activity: 94% educated pt on safety and use of FWW instead of 4WW and agreed. stated that she will ask her son to look for her FWW that she has from previous surgery. informed pt regarding caregiver training and set up for tomorrow at 10 am. pt stated that she has chronic dizziness even before surgery but she is able to manage at home independently. Gait Assessment Gait Gait Assistance Required: Minimum Assistance,Moderate Assistance Distance (Feet) 12 Able to Maintain Weight Bearing Status Yes During Gait Assistive Devices Assistive Device None,Front Wheeled Walker,4 Wheeled Walker Orthotic/Prosthetic Devices or Brace: No Gait Deviations General Gait Pattern Antalgic,Decreased Stride Length,Decreased Feet Clearance Factors Limiting Gait Function Factors Limiting Gait Function Decreased Activity Tolerance, Decreased Strength,Limited Range of Motion,Pain,Poor Balance,Poor Safety Awareness Comments Gait Comments initially ambulated using 4WW but then used FWW for safety. PT-Balance Assessment Sitting Balance and Reactions Static Sitting Balance Ability Good Dynamic Sitting Balance Ability Good Standing Balance and Reactions Static Standing Balance Ability Fair Dynamic Standing Balance Ability Fair Device Used FWW M5 PT-IP Objective Assessments Start: 03/01/21 13:12 Freq: NEEDED Status: Active Protocol: Document 03/01/21 10:51 AB (Rec: 03/01/21 13:30 AB [email or web address]) Orientation Orientation/Cognition Level of Alertness Alert Orientation Name,Place,Situation Language Function Ability No Deficits Noted Safety Awareness Decreased Safety Awareness Memory Description Short Term Impaired Gross Range of Motion Lower Extremity ROM Assessment Within Functional Limits Strength Lower Extremity Strength Assessment Left Impaired Hip 3-/5 Knee 4-/5 Muscle Tone Muscle Tone WNL Yes M6 PT-IP Treatment Start: 03/01/21 13:12 Freq: NEEDED Status: Active Protocol: Document 03/01/21 10:51 AB (Rec: 03/01/21 13:30 AB [email or web address]) Physical Therapy Treatment Education Education Provided Precautions,Weight Bearing Status,Post-Op Packet,Safety M7 PT-IP Assessment and Plan Start: 03/01/21 13:12 Freq: NEEDED Status: Active Protocol: Document 03/01/21 10:51 AB (Rec: 03/01/21 13:30 AB [email or web address]) PT Summary Assessment and Plan Potential Rehabilitation Potential Good Status of Condition at Evaluation Evolving Summary Impairments Pain,ROM,Strength,Balance, Coordination,Sensation,Tone, Cognition,Bed Mobility, Transfers,Gait,Activity Tolerance Assessment Summary pt requiring min to mod A with ambulation using FWW and has decrease activity tolerance with c/o dizziness during ambulation limiting mobility and needing increase assistance. pt stated that her son and spouse will be able to assist her. caregiver training set up for tomorrow at 10 am. will continue to assess mobility progress. pt may require HHPT initially due to decrease activity tolerance and eventually outpt PT. Goals Bed Mobility Goal Standby Assistance Transfer Goal Standby Assistance,Front Wheeled Walker Gait Goal Standby Assistance,Front Wheel Walker Gait Distance 150 Other Goals up/down 1 platform step using FWW SBA Days to Meet Goals 5 Frequency of Treatment Frequency Of Treatment Twice a Day Treatment Plan Physical Therapy Treatment Plan Bed Mobility Training,Transfer Training,Gait Training, Therapeutic Exercise,Balance Retraining,Post Op Education, Discharge Planning,Hot or Cold Pack,Neuromuscular Re-ed, Coordination Retraining,Manual Therapy Precautions Anterior Hip Precautions No Hip Extension,No Hip External Rotation Other Precautions LLE WBAT Recommendations To Nursing Amount of Assist Needed 1 Person Assist Discharge Recommendations PT Discharge Recommendations Home with 23/02 Assist Available,Home Health Equipment Needed for Home Before FWW Discharge Transportation Needs at Discharge Private Vehicle
--- NOTE | 2021-03-01 14:19 | PT.IPTN ---
Current Diagnoses Unilateral primary osteoarthritis, left hip (03/01/21) Surgery Performed Operation Date: 02/28/21 07:45 Actual Procedures p Total Hip Arthroplasty/Anterior Approach(Left) - Cristina Orosco MD Physical Therapy Treatment Note M2 PT-IP Current Condition Start: 03/01/21 13:12 Freq: NEEDED Status: Active Protocol: Document 03/01/21 10:51 AB (Rec: 03/01/21 13:30 AB [id number]) Physical Therapy Current Condition Current Condition Evaluation Date 03/01/21 Treatment Diagnosis s/p L YUNIOR anterior approach; difficulty in walking Onset Date 02/28/21 Precautions Anterior Hip Precautions No Hip Extension,No Hip External Rotation Weight Bearing Status Weight Bearing Status Weight Bear as Tolerated Allowed Weight Bearing Amount (enter % LLE WBAT or #) (%) M3 PT-IP Subjective Start: 03/01/21 13:12 Freq: NEEDED Status: Active Protocol: Document 03/01/21 13:54 CLB (Rec: 03/01/21 14:36 CLB [id number]) Subjective Physical Therapy Visit Type Type Treatment Note Visit Start Time 13:54 Visit Stop Time 14:19 Total Visit Minutes 25 Notes Pt states has a bad back and will be unable to help her very much. Pt's son lives with her but works flight crew time clerk. Number of APPLICATION HELPER Visits 1 Physical Therapy Visit Comments Patient Comments agreeable to do PT Therapy Pain Assessment Pain When Pain Assessed During Mobility Pain Present Pain Present Pain Reported Location Left Hip Intensity 6 Scale Used Numeric (0 - 10) Pain Management Techniques Modification of Treatment,Re- positioning M4 PT-IP Mobility and Gait Start: 03/01/21 13:12 Freq: NEEDED Status: Active Protocol: Document 03/01/21 13:54 CLB (Rec: 03/01/21 14:36 CLB [id number]) PT-Transfer Assessment Sit to and From Stand Sit to and from Stand Minimal Assistance,1 Person Assistance,Use of Upper Extremities Equipment Transfer Assistive Device Gait Belt,Front Wheeled Walker Orthotic/Prosthetic Devices or Brace: No Transfers Transfer Destination Chair Transfer Technique ambulated Transfer Ability Level of Assist Minimal Assistance,1 Person Assistance,Use of Upper Extremities Comments Mobility Comments Pt stood Min A and ambulated around bed requiring a seated rest break due to dizziness. Pt ambulated back to chair sitting Min A to slow descent. Pt performed seated ther ex. Pt educated on hip precautions as pt can not recall precautions. Pt BP after tx 115/52 in sitting, SpO2 on RA 94-96% during activity. Pt left in chair with all needs within reach. Pt states she hasn't heard back from her son to see if he is able to come in tomorrow for CG training. Will check back with pt in the morning to coordinate CG training. Informed RN of pt's BP. Gait Assessment Gait Gait Assistance Required: Minimum Assistance,1 Person Assist Distance (Feet) 20 Able to Maintain Weight Bearing Status Yes During Gait Assistive Devices Assistive Device Gait Belt,Front Wheeled Walker Gait Deviations General Gait Pattern Antalgic,Decreased Stride Length,Decreased Feet Clearance Factors Limiting Gait Function Factors Limiting Gait Function Decreased Activity Tolerance, Decreased Strength,Limited Range of Motion,Pain,Poor Balance,Poor Safety Awareness PT-Balance Assessment Sitting Balance and Reactions Static Sitting Balance Ability Good Dynamic Sitting Balance Ability Good Standing Balance and Reactions Static Standing Balance Ability Fair Dynamic Standing Balance Ability Fair Device Used FWW M5 PT-IP Objective Assessments Start: 03/01/21 13:12 Freq: NEEDED Status: Active Protocol: Document 03/01/21 10:51 AB (Rec: 03/01/21 13:30 AB [id number]) Orientation Orientation/Cognition Level of Alertness Alert Orientation Name,Place,Situation Language Function Ability No Deficits Noted Safety Awareness Decreased Safety Awareness Memory Description Short Term Impaired Gross Range of Motion Lower Extremity ROM Assessment Within Functional Limits Strength Lower Extremity Strength Assessment Left Impaired Hip 3-/5 Knee 4-/5 Muscle Tone Muscle Tone WNL Yes M6 PT-IP Treatment Start: 03/01/21 13:12 Freq: NEEDED Status: Active Protocol: Document 03/01/21 13:54 CLB (Rec: 03/01/21 14:36 CLB [id number]) Physical Therapy Treatment Exercises Exercises Ankle Pumps,Gluteal Sets,Quad Sets Education Education Provided Precautions,Weight Bearing Status,Safety M7 PT-IP Assessment and Plan Start: 03/01/21 13:12 Freq: NEEDED Status: Active Protocol: Document 03/01/21 13:54 CLB (Rec: 03/01/21 14:36 CLB [id number]) PT Summary Assessment and Plan Potential Rehabilitation Potential Good Status of Condition at Evaluation Evolving Summary Impairments Pain,ROM,Strength,Balance, Coordination,Sensation,Tone, Cognition,Bed Mobility, Transfers,Gait,Activity Tolerance Assessment Summary Pt continues to experience dizziness during ambulation that subsides with seated rest break. Pt ambulated in room ~ 10ft requiring seated rest break then ambulated another 10ft. Pt unable to recall precations but demonstrates step to gait pattern and stepping backwards with RLE first. Pt will need to complete stair training before d/c home with and spouse to assist. Goals Bed Mobility Goal Standby Assistance Transfer Goal Standby Assistance,Front Wheeled Walker Gait Goal Standby Assistance,Front Wheel Walker Gait Distance 150 Other Goals up/down 1 platform step using FWW SBA Days to Meet Goals 5 Frequency of Treatment Frequency Of Treatment Twice a Day Treatment Plan Physical Therapy Treatment Plan Bed Mobility Training,Transfer Training,Gait Training, Therapeutic Exercise,Balance Retraining,Post Op Education, Discharge Planning,Hot or Cold Pack,Neuromuscular Re-ed, Coordination Retraining,Manual Therapy Precautions Anterior Hip Precautions No Hip Extension,No Hip External Rotation Other Precautions LLE WBAT Recommendations To Nursing Amount of Assist Needed 1 Person Assist Discharge Recommendations PT Discharge Recommendations Home with 23/02 Assist Available,Home Health Equipment Needed for Home Before FWW Discharge Transportation Needs at Discharge Private Vehicle
--- NOTE | 2021-03-01 15:57 | CM.IDA ---
Initial DCP Assessment Note Pt is a 65 yo female, resident of [place], now POD#1 from Left hip surgery by Dr Orosco PCP: Chrissy Looney Payer: Brandon LUTHER Reviewed chart, pt discussed in multidisciplinary rounds this morning. According to PT Cornelia, patient will likely return home w/spouse and son to assist, however, spouse lives in [place] and can only stay through Thursday, son returns to work Thursday. Patient appears to be self limiting according to PT Cornelia and therapy team remains optimistic w/cg training w/spouse tomorrow and addition of HH therapies, patient will be able to safely return home. Unable to complete bedside assessment today d/t caseload demands, DCP team will follow closely and plan to assess DC needs over the next 24 hours. BAYRON Camargo
--- NOTE | 2021-03-01 18:53 | PM.PN.1 ---
Subjective Subjective Interval history: Patient is a 65-year-old female who was admitted to the hospital for surgical repair of left hip osteoporosis and osteoarthritis. She underwent her procedure today without difficulty. Patient is chronically short of breath and reports her shortness of breath is no different than normal. She typically has a bowel movement daily and has not had a BM for the past 2 days otherwise she has no significant complaints. Has expected postoperative surgical pain. Exam Vital Signs (past 8 hours): - 03/01/21 12:32 03/01/21 15:51 Temperature 97.7 F 96.7 F L Pulse Rate 82 77 Respiratory Rate 20 16 Blood Pressure 114/67 97/53 L Pulse Oximetry 98 97 Oxygen Delivery Method Nasal Cannula Oxygen Flow Rate 1 Narrative Exam Narrative: Pleasant female lying in bed in no obvious distress Resp Other: Lungs decreased breath sounds with occasional scattered crackles Cardio Other: Cardiac exam: Regular rate and rhythm normal S1-S2 GI Other: Abdomen soft and nontender Extrem Other: Left hip with bandage in place Objective Labs Result Diagrams: 03/01/21 05:33 03/01/21 05:33 Labs: Laboratory Results - last 24 hr 03/01/21 03/01/21 03/01/21 05:33 05:33 05:33 Hgb 10.3 L Hct 30.9 L Sodium 133 L Potassium 4.1 Chloride 104 Carbon Dioxide 25 BUN 16 Creatinine 0.47 L Estimated GFR > 60.0 BUN/Creatinine Ratio 34.0 H Glucose 125 H Calcium 8.7 Total Bilirubin 0.3 AST 37 H ALT 25 Alkaline Phosphatase 86 Total Protein 5.4 L Albumin 3.0 L Globulin 2.4 Albumin/Globulin Ratio 1.3 TSH Free T4 Cortisol AM Sample 23.1 H 03/01/21 05:33 Hgb Hct Sodium Potassium Chloride Carbon Dioxide BUN Creatinine Estimated GFR BUN/Creatinine Ratio Glucose Calcium Total Bilirubin AST ALT Alkaline Phosphatase Total Protein Albumin Globulin Albumin/Globulin Ratio TSH 0.26 L Free T4 1.29 Cortisol AM Sample [facility] Medical History Abrasion (02/25/21) Anxiety Asthma Chronic pain disorder Depression Easy bruisability Elevated coronary artery calcium score Fibromyalgia GERD (gastroesophageal reflux disease) HTN (hypertension) Hyperlipidemia ILD (interstitial lung disease) Osteoarthritis RBBB (right bundle branch block) Sarcoid neuropathy Sarcoidosis Surgical History H/O total hip arthroplasty (04/21/17) History of bunionectomy of left great toe (10/2015) History of hysterectomy History of lung biopsy Hx of cardiac cath Hx of tonsillectomy Family History Mother COPD (chronic obstructive pulmonary disease) Cancer Hypertension Father Aneurysm Asthma Social History household members: children occupational status: other (Retired) Smoking Status: Never smoker alcohol intake: current (1 glass of wine Qnight) Assessment & Plan Assessment & Plan narrative: 65-year-old female status post left hip arthroplasty for osteoarthritis and osteoporosis Patient will be on standard hip replacement protocol, an aspirin b.i.d. for DVT prophylaxis. The patient will work with PT and OT. Plans are for her to discharge home. 2. Sarcoidosis and interstitial lung disease -patient previously on steroids, tapered off prior to her surgery -she receive stress dose steroids intraoperatively, no further steroids indicated at this time -patient to continue hydroxychloroquine, as needed albuterol -patient is not hypoxic 3. Hypertension -continue amlodipine and losartan 4. GERD -continue proton pump inhibitor 5. Fibromyalgia -continue usual home medication 6. Constipation -will start bowel program 7. Depression -continue amitriptyline Quality VTE Deep Vein Thrombosis/Pulmonary Embolism Present on Admission: No
[2021-03-01] MEDS: polyethylene glycoL 3350 17 GM POWD.PACK PO (20:29)
[2021-03-01] MEDS: MELATONIN 3 MG TABLET 9 MG PO (20:29)
[2021-03-01] MEDS: SENNOSIDES 8.6 MG TABLET 17.2 MG PO (20:29)
[2021-03-01] MEDS: AMITRIPTYLINE 25 MG TABLET 50 MG PO (20:30)
[2021-03-01] MEDS: ROPINIROLE 1 MG TABLET 3 MG PO (20:35)
[2021-03-01] MEDS: BUDESONIDE 0.5 MG/2 ML NEB INH (21:17)
[2021-03-01] MEDS: OXYCODONE IR 5 MG TABLET PO (21:37)
--- NOTE | 2021-03-01 22:27 | PC.NURSE ---
A&Ox4. BPs 97/53, 110/46 and then increased to 141/54 this evening at 2200. Had held her BP medication earlier at 2030 due to decreased BP. All other vitals stable. On 1L O2 sating at 96%. Pain 5/10 left anterior hip. Scheduled tylenol and ibuprofen seemed to help alleviate the pain a bit down to 4/10 pain. Given PRN oxycodone 5 mg this evening for increased pain to 6/10. Ice applied intermittently to surgical site. Dressing cdi. This senior grant writer found the patient PIV had fallen out. Provider given verbal permission not place another, patient currently has no IV access. 1 person assist to toilet. Tearful this evening and unsure about going home tomorrow and the support that she will get at home. Call light within reach, bed low.
[2021-03-02 01:00] VITALS: BP 102/59; PULSE 76; RESP 14; TEMP 36.7; O2SAT 94
[2021-03-02] MEDS: IBUPROFEN 400 MG TABLET PO ×2 (02:05→06:44)
[2021-03-02] MEDS: OXYCODONE IR 5 MG TABLET PO ×3 (02:06→10:01)
[2021-03-02 04:48] VITALS: BP 91/56; PULSE 70; RESP 18; TEMP 36.2; O2SAT 95
[2021-03-02 08:00] VITALS: BP 103/65; PULSE 77; RESP 18; TEMP 36.6; O2SAT 94
[2021-03-02 08:33] VITALS: PULSE 79; RESP 16; O2SAT 96
[2021-03-02] MEDS: BUDESONIDE 0.5 MG/2 ML NEB INH (08:33)
--- NOTE | 2021-03-02 09:54 | PM.DS.1 ---
History of Present Illness History of Present Illness Date Patient Seen: 03/02/21 Time Patient Seen: 09:54 Chief complaint: Hip pain Narrative: Patient status post left total hip arthroplasty, anterior approach. Pain is well managed. Denies fever chills. No nausea vomiting. No shortness of breath or chest pain. Patient's son will be available next couple days to assist her. Discharge Providers Provider Date of admission: 03/01/21 10:54 Discharge Date: 03/02/21 Primary care physician: Chrissy Looney PA-C Consults: 02/26/21 08:40 Consult to Anesthesiology Routine Comment: Consulting Provider: Anesthesiologist Reason for consultation: Surgeon requested re: No reason provided 02/28/21 06:44 Consult to Anesthesiology Routine Comment: Consulting Provider: Anesthesiologist Reason for consultation: Regional block for post operative pain control 02/28/21 12:32 Consult to Discharge Planning Routine Comment: Consult to Physical Therapy Evaluate & Treat Comment: Physician Instructions: post op YUNIOR protocol Consult to Respiratory Therapy Evaluate & Treat Comment: Physician Instructions: Evaluate and treat 02/28/21 12:37 Consult to Hospitalist Service Routine Comment: Consulting Provider: Jodie Castillo Reason for consultation: pulmonary, adrenal, cardiac Has provider been notified: Yes Discharge provider: Dominik Ibarra PA-C Summary Hospital Course Discharge Diagnosis: Left hip OA Sarcoidosis and interstitial lung disease Hypertension GERD Fibromyalgia Constipation Depression Hospital Course: Procedure: Left total hip arthroplasty anterior approach Same procedure as scheduled: Yes Indications: The patient has had progressively worsening left hip pain with radiographic changes consistent with arthritis. Non-operative management has failed and the patient has requested total hip replacement. The risks, benefits and alternatives to surgery were discussed with the patient prior to proceeding. Risks discussed included, but were not limited to, failure to relieve pain, leg length discrepancy, dislocation, stiffness, infection, nerve damage, deep venous thrombosis, pulmonary embolism, stroke, coma, heart attack, permanent paralysis and , as well as the potential need for eventual revision of the prosthetic. Surgeon: Cristina Orosco Labelling Machine Operator: Silver Michele Anesthesia Type: Spinal Operative Notes Findings: Severe left hip osteoarthritis, soft bone adequate stability Closure Type: primary Specimen(s): none sent Prosthetic devices, grafts, tissues, transplants, or devices: Orosco and nephew size 4 anthology, size 48 R3 cup, -3 Oxinium head, one 20mm screw Estimated Blood Loss (mL): 250 Blood products transfused: none Patient admitted to the hospital for left total hip arthroplasty. Patient consented to the same. Patient taken to the operating room on February 28, 2021 underwent left total hip arthroplasty, anterior approach. Patient back in her room recovering well and is in stable condition. Patient admitted as inpatient and consultation requested by Internal Medicine. Patient has multiple medical problems including sarcoidosis with significantly impaired pulmonary function. Exam Vital Signs (past 8 hours): - 03/02/21 04:48 03/02/21 08:00 03/02/21 08:33 Temperature 97.2 F L 97.9 F Pulse Rate 70 77 79 Respiratory Rate 18 18 16 Blood Pressure 91/56 L 103/65 Pulse Oximetry 95 94 96 Oxygen Delivery Method Room Air Oxygen Flow Rate 0 Narrative Exam Narrative: 65-year-old female resting comfortably in bed in no apparent distress. Left hip dressing is Clean, dry, intact.. Motor functions intact bilateral lower extremities. Both legs are warm and dry. Sensation grossly intact to light touch bilateral lower extremities. Objective Labs Result Diagrams: 03/01/21 05:33 03/01/21 05:33 [facility] Medical History Abrasion (02/25/21) Anxiety Asthma Chronic pain disorder Depression Easy bruisability Elevated coronary artery calcium score Fibromyalgia GERD (gastroesophageal reflux disease) HTN (hypertension) Hyperlipidemia ILD (interstitial lung disease) Osteoarthritis RBBB (right bundle branch block) Sarcoid neuropathy Sarcoidosis Surgical History H/O total hip arthroplasty (04/21/17) History of bunionectomy of left great toe (10/2015) History of hysterectomy History of lung biopsy Hx of cardiac cath Hx of tonsillectomy Family History Mother COPD (chronic obstructive pulmonary disease) Cancer Hypertension Father Aneurysm Asthma Social History household members: children occupational status: other (Retired) Smoking Status: Never smoker alcohol intake: current (1 glass of wine Qnight) Discharge Assessment & Plan Assessment and Plan Assessment: Patient progressing as expected status post left total hip arthroplasty Plan of Treatment: Weight-bearing as tolerated Anterior hip precautions Aspirin for DVT prophylaxis Prednisone 10 mg daily times 10 days, follow up with business education instructor her primary care provider in the next 7-10 days. DC home today in stable condition. Discharge Plan Discharge Plan Patient Disposition: Home Discharge orders & Medications Prescriptions: New acetaminophen 325 mg Tablet 650 mg PO TID Qty: 60 RF: 0 aspirin 81 mg Tablet,Delayed Release (Dr/Ec) 81 mg PO BID Qty: 60 RF: 0 oxycodone 5 mg Tablet 5 mg PO Q3HR PRN (Reason: Pain, Moderate (4-6)) Qty: 60 RF: 0 polyethylene glycol 3350 17 gram Powder In Packet 17 gm PO DAILY PRN (Reason: Constipation) Qty: 10 RF: 0 prednisone 10 mg tablet 10 mg PO DAILY Qty: 10 RF: 0 Continued gabapentin [Neurontin] 600 MG tablet 600 mg PO SEEINSTR Qty: 0 RF: 0 cyclobenzaprine 10 MG tablet 10 mg PO TID PRN (Reason: Muscle Spasm) Qty: 0 RF: 0 hydroxychloroquine [Plaquenil] 200 MG tablet 400 mg PO QDAY Qty: 0 RF: 0 losartan 50 mg Tablet 50 mg PO BID RF: 0 ropinirole 3 mg Tablet 3 mg PO BEDTIME RF: 0 amlodipine 5 mg Tablet 5 mg PO BID RF: 0 amitriptyline 50 mg Tablet 50 mg PO BEDTIME RF: 0 naproxen sodium 220 mg Tablet 220 mg PO BID PRN (Reason: Pain) RF: 0 folic acid 1 mg Tablet 1 - 5 mg PO DAILY RF: 0 montelukast 10 mg Tablet 10 mg PO BID RF: 0 albuterol sulfate 90 mcg/actuation Hfa Aerosol Inhaler 2 puff INHALATION Q4-6H PRN (Reason: Shortness Of Breath) RF: 0 omeprazole 20 mg Tablet,Delayed Release (Dr/Ec) 20 mg PO BID RF: 0 ciclesonide 80 mcg/actuation Hfa Aerosol Inhaler 1 puff INHALATION BID RF: 0 Discontinued acetaminophen 500 mg Tablet 1,000 mg PO BID PRN (Reason: Pain) RF: 0 meloxicam 7.5 mg Tablet 7.5 mg PO BID RF: 0 Follow up/Referrals: Cristina Orosco MD [Physician] - (2 weeks) Chrissy Looney PA-C [Primary Care Provider] - Diet/Activity/Treatments Diet: Diet as Tolerated Activity: Weight-bearing as tolerated. Anterior hip precautions. Other treatments: Apply ice to hip as needed. Skin/Wound/Dressing Care Report to your healthcare provider any signs of infection, such as:: chills, fever, increased pain, unusual drainage and unusual redness Dressing: Keep dressing clean and dry Visit Report/Discharge Packet Instructions: DI for Hip Replacement, DI for Prescription Opioid Use Stand Alone Forms: Surgery Discharge Discharge Data Primary Care Provider: Chrissy Looney Attending Provider: Cristina Orosco VTE Deep Vein Thrombosis/Pulmonary Embolism Present on Admission: No
[2021-03-02] MEDS: AMLODIPINE 5 MG TABLET PO (09:57)
[2021-03-02] MEDS: ACETAMINOPHEN 325 MG TABLET 650 MG PO (09:57)
[2021-03-02] MEDS: DOCUSATE 100 MG CAPSULE PO (09:58)
[2021-03-02] MEDS: HYDROXYCHLOROQUINE 200 MG TABLET 400 MG PO (09:58)
[2021-03-02] MEDS: ASPIRIN EC 81 MG TABLET PO (09:58)
[2021-03-02] MEDS: FOLIC ACID 1 MG TABLET PO (09:58)
[2021-03-02] MEDS: MONTELUKAST 10 MG TABLET PO (09:59)
[2021-03-02] MEDS: PANTOPRAZOLE DR 20 MG TABLET PO (09:59)
[2021-03-02] MEDS: polyethylene glycoL 3350 17 GM POWD.PACK PO (09:59)
[2021-03-02] MEDS: SODIUM CHLORIDE 0.9% FLUSH 10 ML IV (09:59)
[2021-03-02] MEDS: SENNOSIDES 8.6 MG TABLET 17.2 MG PO (09:59)
[2021-03-02] MEDS: LOSARTAN 50 MG TABLET PO (09:59)
[2021-03-02] MEDS: GABAPENTIN 600 MG TABLET PO (10:06)
--- NOTE | 2021-03-02 10:55 | PT.IPTN ---
Current Diagnoses Unilateral primary osteoarthritis, left hip (03/01/21) Surgery Performed Operation Date: 02/28/21 07:45 Actual Procedures p Total Hip Arthroplasty/Anterior Approach(Left) - Cristina Orosco MD Physical Therapy Treatment Note M2 PT-IP Current Condition Start: 03/01/21 13:12 Freq: NEEDED Status: Discharge Protocol: Document 03/01/21 10:51 AB (Rec: 03/01/21 13:30 AB [id number]) Physical Therapy Current Condition Current Condition Evaluation Date 03/01/21 Treatment Diagnosis s/p L YUNIOR anterior approach; difficulty in walking Onset Date 02/28/21 Precautions Anterior Hip Precautions No Hip Extension,No Hip External Rotation Weight Bearing Status Weight Bearing Status Weight Bear as Tolerated Allowed Weight Bearing Amount (enter % LLE WBAT or #) (%) M3 PT-IP Subjective Start: 03/01/21 13:12 Freq: NEEDED Status: Discharge Protocol: Document 03/02/21 10:11 CLB (Rec: 03/02/21 15:53 CLB [id number]) Subjective Physical Therapy Visit Type Type Treatment Note Visit Start Time 10:11 Visit Stop Time 10:55 Total Visit Minutes 44 Notes son present for CG training, son states he will get FWW. Number of HOSPICE RN Visits 2 Physical Therapy Visit Comments Patient Comments agreeable to do PT Therapy Pain Assessment Pain When Pain Assessed During Mobility Pain Present Pain Present Pain Reported Location Left Hip Scale Used did not state Pain Management Techniques Modification of Treatment,Re- positioning,Timing of Activity with Medications M4 PT-IP Mobility and Gait Start: 03/01/21 13:12 Freq: NEEDED Status: Discharge Protocol: Document 03/02/21 10:11 CLB (Rec: 03/02/21 15:53 CLB [id number]) PT-Bed Mobility Assessment Supine to Sit Supine to Sit Minimal Assistance,1 Person Assistance PT-Transfer Assessment Sit to and From Stand Sit to and from Stand Contact Guard Assistance,1 Person Assistance,Use of Upper Extremities Equipment Transfer Assistive Device Gait Belt,Front Wheeled Walker Orthotic/Prosthetic Devices or Brace: No Transfers Transfer Destination Chair Transfer Technique ambulated Transfer Ability Level of Assist Contact Guard Assistance,1 Person Assistance,Use of Upper Extremities Comments Mobility Comments Pt performed HS in bed. Pt BP in supine 141/91. Pt required Min A of LLE off of bed. Pt BP in sitting 136/67. Pt educated on use of cane to assist LLE off bed at home. Pt then stood CGA from bed and ambulated ~10ft w/FWW/CGA with difficulty advancing LLE to start then able to the further she ambulated, pt had no c/o dizziness. Pt able to climb one PF step requiring CGA and cues for sequencing. Pt then returned to bed side sitting to rest. BP after activity 144 /78. After rest period pt able to ambulate ~15ft and refused further ambulation. Pt left in chair with son present and all needs within reach. Gait Assessment Gait Gait Assistance Required: Contact Guard Assist,1 Person Assist Distance (Feet) 25 Able to Maintain Weight Bearing Status Yes During Gait Assistive Devices Assistive Device Gait Belt,Front Wheeled Walker Gait Deviations General Gait Pattern Antalgic,Decreased Stride Length,Decreased Feet Clearance Factors Limiting Gait Function Factors Limiting Gait Function Decreased Activity Tolerance, Decreased Strength,Limited Range of Motion,Pain,Poor Balance,Poor Safety Awareness Comments Gait Comments see mobility comments Stair Climbing Assessment Evaluation Level of Assist On Stairs Contact Guard Assistance,1 Person Assistance Devices Stair Climbing Assistive Devices Front Wheel Walker Technique/Endurance Stair Climbing Direction Ascend and Descend Stair Climbing Technique Step to Step Number of Steps Climbed 1 Stair Climbing Set # Repetitions (reps) 1 M5 PT-IP Objective Assessments Start: 03/01/21 13:12 Freq: NEEDED Status: Discharge Protocol: Document 03/01/21 10:51 AB (Rec: 03/01/21 13:30 AB [id number]) Orientation Orientation/Cognition Level of Alertness Alert Orientation Name,Place,Situation Language Function Ability No Deficits Noted Safety Awareness Decreased Safety Awareness Memory Description Short Term Impaired Gross Range of Motion Lower Extremity ROM Assessment Within Functional Limits Strength Lower Extremity Strength Assessment Left Impaired Hip 3-/5 Knee 4-/5 Muscle Tone Muscle Tone WNL Yes M6 PT-IP Treatment Start: 03/01/21 13:12 Freq: NEEDED Status: Discharge Protocol: Document 03/02/21 10:11 CLB (Rec: 03/02/21 15:53 CLB [id number]) Physical Therapy Treatment Exercises Exercises Heel Slides Education Education Provided Precautions,Weight Bearing Status,Safety M7 PT-IP Assessment and Plan Start: 03/01/21 13:12 Freq: NEEDED Status: Discharge Protocol: Document 03/02/21 10:11 CLB (Rec: 03/02/21 15:53 CLB [id number]) PT Summary Assessment and Plan Potential Rehabilitation Potential Good Status of Condition at Evaluation Evolving Summary Impairments Pain,ROM,Strength,Balance, Coordination,Sensation,Tone, Cognition,Bed Mobility, Transfers,Gait,Activity Tolerance Assessment Summary Pt w/o complaint of dizziness during mobility. Pt son present for CG training and son is able to assist pt with all mobility. Pt required Min A for moving LLE off bed, CGA for sit-stand and gait. Pt ambulated ~25ft and refused further ambulation. Pt able to climb one step with FWW CGA. Pt can d/c home with assist of and son. will be able to assist pt for a week and son will assist pt as he lives with pt. Son will purchase FWW. Pt would benefit from . Goals Bed Mobility Goal Standby Assistance Transfer Goal Standby Assistance,Front Wheeled Walker Gait Goal Standby Assistance,Front Wheel Walker Gait Distance 150 Other Goals up/down 1 platform step using FWW SBA Days to Meet Goals 5 Frequency of Treatment Frequency Of Treatment Twice a Day Treatment Plan Physical Therapy Treatment Plan Bed Mobility Training,Transfer Training,Gait Training, Therapeutic Exercise,Balance Retraining,Post Op Education, Discharge Planning,Hot or Cold Pack,Neuromuscular Re-ed, Coordination Retraining,Manual Therapy Precautions Anterior Hip Precautions No Hip Extension,No Hip External Rotation Other Precautions LLE WBAT Recommendations To Nursing Amount of Assist Needed 1 Person Assist Discharge Recommendations PT Discharge Recommendations Home with 23/02 Assist Available,Home Health Equipment Needed for Home Before FWW Discharge son will purchase Transportation Needs at Discharge Private Vehicle
--- NOTE | 2021-03-02 10:59 | CM.DPC ---
Addendum entered by BAYRON Rushing 03/02/21 11:07: ADD: Per TELECASTING ENGINEER, completed CG training and pt safe for d/c home with family assist and would really benefit from HH. Pt's son confirms that spouse will now be home for a week to be available for some assist and son will be checking on them regularly from work. Pt had no preference for HH and SW made referral based on vendor calendar to [facility] and faxed F2F and orders for d/c home via son POV today. BF Original Note: DCP Discharge home Per Ortho PA, pt medically stable to d/c home today after further PT CG training with pt and son. SW updated that pt may want HH and Ortho PA heading in for bedside assessment of pt now and will inquire if HH needed. SW previously met bedside with pt this morning prior to d/c orders and she confirms that she lives at home with spouse (who is currently in [place] for a job but home for the weekend before return to work on Thu) and that spouse is around 300 lbs and has back issues and typically does not provide much assist but requires assist himself at baseline. Pt confirms that her adult son lives with them but works radio time salesperson but also available today and tomorrow and willing to be bedside for CG training with PT and will arrive around 1000. EUSEBIO updated TELECASTING ENGINEER and she will work with pt and son this morning. Plan: SW to follow for PT to complete CG training to confirm safe for d/c home via son POV and assist and if HH needed vs outpt PT at [facility]. BAYRON Rushing
--- NOTE | 2021-03-02 12:18 | PC.NURSE ---
Patient given discharge instructions regarding f/u appointment, wound care, pain control, medications, home safety and s/s of infection. Son bedside during instruction. Patient and son verbalized understanding. Patient belongings gathered, home inhaler retrieved from pharmacy and sent with patient. Patient does not have IV access. Patient discharged via wheelchair with aide assist.
== END 2021-03-02 12:21 | disposition home or self-care (01) ==
LOC: OR 13:00 → AC 13:00
PROVIDERS: Nurse Practitioner Family; Admitting Provider Orthopaedic Surgery; Family Provider Physician Assistant Medical; PCP Physician Assistant Medical; Referring Provider Orthopaedic Surgery; Visit Provider Orthopaedic Surgery
PROC: (CPT 27130; principal; 2021-02-28 07:45)
DX: M16.12 Unilateral primary osteoarthritis, left hip (principal); D86.9 Sarcoidosis, unspecified; E27.40 Unspecified adrenocortical insufficiency; K21.9 Gastro-esophageal reflux disease without esophagitis; M79.7 Fibromyalgia; J84.9 Interstitial pulmonary disease, unspecified; I10 Essential (primary) hypertension; K59.00 Constipation, unspecified; F32.9 Major depressive disorder, single episode, unspecified; Z99.81 Dependence on supplemental oxygen; Z79.52 Long term (current) use of systemic steroids
CPT/HCPCS: 27130; 36415; 73502; 76000; 80053; 82533; 84439; 84443; 85014; 85018; 94640; 94762; 97110; 97116; 97162; 97530; C1776; G0378; A9270; C9290; J0690; J1720; J2250; J2274; J2405; J2704

== ENCOUNTER 2021-03-29 11:40 | Emergency (ER) | payer OTHER, MEDICARE, SELFPAY ==
[2021-02-28 13:21] VITALS: BMI 27.4
[2021-03-29] VITALS (8 sets, daily range): BP systolic 135–156; BP diastolic 62–90; PULSE 59–94; RESP 18; TEMP 36.6; O2SAT 86–98; BMI 26.5
--- NOTE | 2021-03-29 11:58 | PC.NURSE ---
pt with hip replacement 4 weeks ago had an initial fall 2 weeks ago. resulting in intermittent tolerable pain to L hip. This morning pt was on the floor with brushing her dog and was unable to get up.
--- NOTE | 2021-03-29 12:22 | DI.US.S_ITS ---
PROCEDURE: US EXTREMITY NONVASC LOWER LT INDICATIONS: ?SUBCUTANEOUS HEMATOMA LEFT HIP TECHNIQUE: Real-time scanning was performed of the left hip area, with image documentation. COMPARISON: [facility], CR, XR HIP W PEL IF DONE LT 2V, 03/29/2021, 12:24. FINDINGS: There is a complex septated avascular fluid collection at the area of swelling and redness in the soft tissues anterior to the left hip measuring 11.4 x 4.7 x 5.3 cm. Hip arthroplasty not visualized. IMPRESSION: Complex fluid collection at the area of swelling and redness anterior to the left hip measuring 11.4 x 4.7 x 5.3 cm, likely representing involving hematoma although an infectious process is not excluded and correlation with clinical findings is recommended. Dictated by: Shemar Bliss M.D. on 03/29/2021 at 12:57 Approved by: Shemar Bliss M.D. on 03/29/2021 at 13:02
--- NOTE | 2021-03-29 12:22 | DI.RAD.S_ITS ---
PROCEDURE: XR HIP W PEL IF DONE LT 2V INDICATIONS: L hip pain TECHNIQUE: AP pelvis with lateral view(s) of the left hip(s). COMPARISON: [facility], , XR HIP W PEL IF DONE LT 2V, 02/28/2021, 11:06. FINDINGS: Bones: Bilateral hip prosthesis in place. No evidence of hardware failure or loosening. Pelvic rim intact. Mild degenerative changes noted in the lower lumbar spine. Soft tissues: The visualized bowel gas pattern is normal. No suspicious soft tissue calcifications. IMPRESSION: Bilateral hip prosthesis good position. No evidence of hardware failure or loosening. Mild degenerative changes noted lower lumbar spine Approved by: Rudy Quezada M.D. on 03/29/2021 at 11:53
--- NOTE | 2021-03-29 12:35 | ED.LOWEXIN ---
HPI - Extremity Injury (Lower) <Ernst Lawton PA-C - Last Filed: 03/29/21 13:40> General Chief Complaint: Extremity Injury, Lower Stated Complaint: Fell two weeks ago Time Seen by Provider: 03/29/21 12:04 Source: patient and EMS Mode of arrival: EMS Limitations: no limitations History of Present Illness HPI Narrative: Lupe presents today with chief complaint of left proximal type pain and hip pain. She reports that she had a fall about 2 weeks ago but was able to get up and ambulate afterwards without any significant difficulty. She did not hit her left hip. Over the last 2 days she has had increased pain in her left hip near the surgical site of her recent hip replacement surgery that she had 4 weeks ago. She reports that she has been quite active and may overdone it. Pain is made worse with lifting her leg up off of a bed or flexing at the hip. She denies any significant fever, skin changes, numbness or tingling in her legs, abdominal pain or any other acute concerns or complaints at this time. Related Data Home Medications Medication Instructions Recorded Confirmed cyclobenzaprine 10 mg tablet 10 mg PO TID PRN #0 03/31/17 02/28/21 gabapentin 600 mg tablet 600 mg PO SEEINSTR #0 03/31/17 02/28/21 (Neurontin) hydroxychloroquine 200 mg tablet 400 mg PO QDAY #0 03/31/17 02/28/21 (Plaquenil) albuterol sulfate 90 mcg/actuation 2 puff INHALATION Q4-6H PRN 02/26/21 02/28/21 aerosol inhaler amitriptyline 50 mg tablet 50 mg PO BEDTIME 02/26/21 02/28/21 amlodipine 5 mg tablet 5 mg PO BID 02/26/21 02/28/21 ciclesonide 80 mcg/actuation 1 puff INHALATION BID 02/26/21 02/28/21 aerosol inhaler folic acid 1 mg tablet 1 - 5 mg PO DAILY 02/26/21 02/28/21 losartan 50 mg tablet 50 mg PO BID 02/26/21 02/28/21 montelukast 10 mg tablet 10 mg PO BID 02/26/21 02/28/21 naproxen sodium 220 mg tablet 220 mg PO BID PRN 02/26/21 02/28/21 omeprazole 20 mg tablet,delayed 20 mg PO BID 02/26/21 02/28/21 release ropinirole 3 mg tablet 3 mg PO BEDTIME 02/26/21 02/28/21 Previous Rx's Medication Instructions Recorded acetaminophen 325 mg tablet 650 mg PO TID #60 tab 03/02/21 aspirin 81 mg tablet,delayed 81 mg PO BID #60 tab 03/02/21 release oxycodone 5 mg tablet 5 mg PO Q3HR PRN #60 tab 03/02/21 polyethylene glycol 3350 17 gram 17 gm PO DAILY PRN #10 ea 03/02/21 oral powder packet prednisone 10 mg tablet 10 mg PO DAILY #10 tab 03/02/21 Allergies Allergy/AdvReac Type Severity Reaction Status Date / Time adhesive AdvReac Mild Rash Verified 02/28/21 06:49 Patient History <Ernst Lawton PA-C - Last Filed: 03/29/21 13:40> Medical History Abrasion (02/25/21) Anxiety Asthma Chronic pain disorder Depression Easy bruisability Elevated coronary artery calcium score Fibromyalgia GERD (gastroesophageal reflux disease) HTN (hypertension) Hyperlipidemia ILD (interstitial lung disease) Osteoarthritis RBBB (right bundle branch block) Sarcoid neuropathy Sarcoidosis Surgical History H/O total hip arthroplasty (04/21/17) History of bunionectomy of left great toe (10/2015) History of hysterectomy History of lung biopsy Hx of cardiac cath Hx of tonsillectomy Family History Mother COPD (chronic obstructive pulmonary disease) Cancer Hypertension Father Aneurysm Asthma Social History household members: children occupational status: other (Retired) Smoking Status: Never smoker alcohol intake: current (1 glass of wine Qnight) Smoking Status: Never smoker alcohol intake frequency: 0-2 drinks per day Alcohol type: wine Substance Use Type: does not use Exam <Ernst Lawton PA-C - Last Filed: 03/29/21 13:40> Narrative Exam Narrative: Exam Narrative: Const General: cooperative, healthy appearing, comfortable, no acute distress, well developed and well groomed Nutritional Appearance: average body habitus Orientation: alert and oriented x3 HENMT Head: normal to inspection and atraumatic Ears: hearing grossly normal bilaterally Nose: external nose normal and nares normal Face and sinus: normal facial exam Neck Neck: normal visual inspection and supple Resp Effort & Inspection: normal respiratory effort, able to speak in complete sentences, no audible wheezes, not labored, no nasal flaring and no respiratory distress Neuro General: alert, oriented x3, gait normal, tone normal and moves all extremities Cognition: normal cognition Speech: speech normal Gait: normal gait Extremities Lower extremities exposed. Postsurgical scarring noted to the left lateral proximal thigh. Mild swelling noted. Wound appears to be healing well. No significant surrounding erythema or warmth. No discharge. There is a large soft subcutaneous mass just underneath the surgical scar. This is mildly tender to the touch. Psych Appearance: grossly normal and well kempt Mental Status: mental status grossly normal Speech and Movement: speech and movement normal Mood: congruent mood Affect: normal affect Initial Vital Signs Initial Vital Signs: Vital Signs Pulse Rate 82 03/29/21 11:43 Pulse Oximetry 97 03/29/21 11:43 <Jennifer Quevedo DO - Last Filed: 04/03/21 07:35> Initial Vital Signs Initial Vital Signs: Vital Signs Pulse Rate 82 03/29/21 11:43 Pulse Oximetry 97 03/29/21 11:43 Course <Ernst Lawton PA-C - Last Filed: 03/29/21 13:40> Orders Ordered: ED Orders 03/29/21 12:22 US extremity nonvasc lower lt Stat XR hip w pel if done LT 2V Stat Vital Signs Vital signs: Vital Signs - 8 hr 03/29/21 11:43 03/29/21 11:44 03/29/21 11:46 Temperature 98 F 98 F Pulse Rate 82 82 82 Respiratory Rate 18 Blood Pressure 135/64 135/64 Pulse Oximetry 97 98 96 03/29/21 12:00 Temperature Pulse Rate 80 Respiratory Rate Blood Pressure 138/62 Pulse Oximetry 97 <Jennifer Quevedo DO - Last Filed: 04/03/21 07:35> Orders Ordered: ED Orders 03/29/21 12:22 US extremity nonvasc lower lt Stat XR hip w pel if done LT 2V Stat Vital Signs Vital signs: Vital Signs - 8 hr 03/29/21 11:43 03/29/21 11:44 03/29/21 11:46 Temperature 98 F 98 F Pulse Rate 82 82 82 Respiratory Rate 18 Blood Pressure 135/64 135/64 Pulse Oximetry 97 98 96 03/29/21 12:00 Temperature Pulse Rate 80 Respiratory Rate Blood Pressure 138/62 Pulse Oximetry 97 MDM - Extremity Injury (Lower) <Ernst Lawton PA-C - Last Filed: 03/29/21 13:40> MDM Narrative Medical decision making narrative: Differential diagnosis considered includes abscess, hematoma, septic arthropathy, normal postsurgical pain. X-ray was done which is reassuring. There is no significant overlying skin abnormalities and she does not have any systemic signs of infection at this time. I suspect that this is a postsurgical hematoma that has developed given her increased activity level. She agreed to follow up with her surgeon for close monitoring of this. ER return precautions were discussed in detail. Patient verbalizes understanding and agrees to plan and has no further concerns at this time. Thank you A [id number] system was used with the dictation of this note. Please disregard any spelling or grammatical errors. Discharge Plan Departure Patient Disposition: Home Clinical Impression: Left thigh pain H/O total hip arthroplasty Qualifiers: Laterality: unspecified laterality Qualified Code(s): Z96.649 - Presence of unspecified artificial hip joint Instructions: DI for Hematoma (Bruise) Activity Restrictions/Additional Instructions: It was nice to meet you this afternoon. I suspect that your symptoms are due to a hematoma development. If you experience fever, worsening pain, redness, or any other worsening symptoms do not hesitate to return immediately to the emergency department for re-evaluation. Thank you Ernst Lawton PA-C Prescriptions: No Action gabapentin [Neurontin] 600 MG tablet 600 mg PO SEEINSTR Qty: 0 RF: 0 cyclobenzaprine 10 MG tablet 10 mg PO TID PRN (Reason: Muscle Spasm) Qty: 0 RF: 0 hydroxychloroquine [Plaquenil] 200 MG tablet 400 mg PO QDAY Qty: 0 RF: 0 losartan 50 mg Tablet 50 mg PO BID RF: 0 ropinirole 3 mg Tablet 3 mg PO BEDTIME RF: 0 amlodipine 5 mg Tablet 5 mg PO BID RF: 0 amitriptyline 50 mg Tablet 50 mg PO BEDTIME RF: 0 naproxen sodium 220 mg Tablet 220 mg PO BID PRN (Reason: Pain) RF: 0 folic acid 1 mg Tablet 1 - 5 mg PO DAILY RF: 0 montelukast 10 mg Tablet 10 mg PO BID RF: 0 albuterol sulfate 90 mcg/actuation Hfa Aerosol Inhaler 2 puff INHALATION Q4-6H PRN (Reason: Shortness Of Breath) RF: 0 omeprazole 20 mg Tablet,Delayed Release (Dr/Ec) 20 mg PO BID RF: 0 ciclesonide 80 mcg/actuation Hfa Aerosol Inhaler 1 puff INHALATION BID RF: 0 acetaminophen 325 mg Tablet 650 mg PO TID Qty: 60 RF: 0 aspirin 81 mg Tablet,Delayed Release (Dr/Ec) 81 mg PO BID Qty: 60 RF: 0 oxycodone 5 mg Tablet 5 mg PO Q3HR PRN (Reason: Pain, Moderate (4-6)) Qty: 60 RF: 0 polyethylene glycol 3350 17 gram Powder In Packet 17 gm PO DAILY PRN (Reason: Constipation) Qty: 10 RF: 0 prednisone 10 mg tablet 10 mg PO DAILY Qty: 10 RF: 0 Referrals: Cristina Orosco MD [Physician] - Chrissy Looney PA-C [Primary Care Provider] - <Jennifer Quevedo DO - Last Filed: 04/03/21 07:35> Cosign ED Attending Cosignature Attestation: I was immediately available in the department for consultation. Documentation has been reviewed.
== END 2021-03-29 14:18 | disposition home or self-care (01) ==
PROVIDERS: Emergency Provider Physician Assistant; Family Provider Physician Assistant Medical; PCP Physician Assistant Medical
DX: M79.652 Pain in left thigh (principal); Z96.643 Presence of artificial hip joint, bilateral
CPT/HCPCS: 73502; 76882; 99283

== ENCOUNTER 2022-04-04 16:42 | Emergency (ER) | payer OTHER, MEDICARE, SELFPAY ==
[2021-02-28 13:21] VITALS: BMI 27.4
[2022-04-04] VITALS (34 sets, daily range): BP systolic 128–180; BP diastolic 53–84; PULSE 71–82; RESP 14–36; TEMP 36.6; O2SAT 92–100; BMI 24.9
--- NOTE | 2022-04-04 16:50 | DI.RAD.S_ITS ---
PROCEDURE: XR HIP W PEL IF DONE LT 2V INDICATIONS: hip pain,short/rotated TECHNIQUE: 2 views of the hip were acquired. COMPARISON: [facility], CR, XR HIP W PEL IF DONE LT 2V, 03/29/2021, 12:24. FINDINGS: Bones: Bilateral hip prosthesis present. There is superior dislocation of the left prosthesis. No evidence of fracture. Pelvic ring intact. Generalized decrease in osseous mineralization noted. Soft tissues: No suspicious soft tissue calcifications or masses. IMPRESSION: Dislocated left total hip arthroplasty Total right hip arthroplasty in place Osteopenia without fracture Approved by: Rudy Quezada M.D. on 04/04/2022 at 16:56
[2022-04-04] MEDS: propofoL 200 MG/20 ML VIAL 140 MG IV (18:23)
--- NOTE | 2022-04-04 18:30 | DI.RAD.S_ITS ---
PROCEDURE: XR HIP W PEL IF DONE LT 2V INDICATIONS: post reduction TECHNIQUE: 2 view(s) of the hip acquired. COMPARISON: [facility], CR, XR HIP W PEL IF DONE LT 2V, 04/04/2022, 16:52. FINDINGS: Bones: Postreduction views demonstrate interval reduction of the left hip prosthesis dislocation. Soft tissues: Overlying postoperative changes are noted. No suspicious soft tissue densities. IMPRESSION: Successful reduction of the left hip replacement. Dictated by: Cruz Wilson M.D. on 04/04/2022 at 19:06 Approved by: Cruz Wilson M.D. on 04/04/2022 at 19:06
--- NOTE | 2022-04-04 18:35 | ED.FALL ---
HPI - Fall General Chief Complaint: Fall Stated Complaint: GLF Left hip Time Seen by Provider: 04/04/22 18:04 History of Present Illness HPI Narrative: 66-year-old female nonsmoker with history of left hip arthroplasty presents with a chief complaint of severe left hip pain after reaching and feeling a pop in her hip. She now has significant pain and inability to ambulate due to this pain. She denies any other injury or complaints. She has no head neck or back pain. Denies any numbness, tingling or weakness. She denies any prior dislocations. She is otherwise well and free of complaint Related Data Home Medications Medication Instructions Recorded Confirmed cyclobenzaprine 10 mg tablet 10 mg PO TID PRN Muscle Spasm ##0 03/31/17 02/28/21 gabapentin 600 mg tablet 600 mg PO SEEINSTR ##0 03/31/17 02/28/21 (Neurontin) hydroxychloroquine 200 mg tablet 400 mg PO QDAY ##0 03/31/17 02/28/21 (Plaquenil) albuterol sulfate 90 mcg/actuation 2 puff inhalation Q4-6H PRN 02/26/21 02/28/21 aerosol inhaler Shortness Of Breath amitriptyline 50 mg tablet 50 mg PO BEDTIME 02/26/21 02/28/21 amlodipine 5 mg tablet 5 mg PO BID 02/26/21 02/28/21 ciclesonide 80 mcg/actuation 1 puff inhalation BID 02/26/21 02/28/21 aerosol inhaler folic acid 1 mg tablet 1 - 5 mg PO DAILY Mouth sores 02/26/21 02/28/21 losartan 50 mg tablet 50 mg PO BID 02/26/21 02/28/21 montelukast 10 mg tablet 10 mg PO BID 02/26/21 02/28/21 naproxen sodium 220 mg tablet 220 mg PO BID PRN Pain 02/26/21 02/28/21 omeprazole 20 mg tablet,delayed 20 mg PO BID 02/26/21 02/28/21 release ropinirole 3 mg tablet 3 mg PO BEDTIME RLS 02/26/21 02/28/21 Previous Rx's Medication Instructions Recorded acetaminophen 325 mg tablet 650 mg PO TID #60 tabs 03/02/21 aspirin 81 mg tablet,delayed 81 mg PO BID #60 tabs 03/02/21 release oxycodone 5 mg tablet 5 mg PO Q3HR PRN Pain, Moderate 03/02/21 (4-6) #60 tabs polyethylene glycol 3350 17 gram 17 gm PO DAILY PRN Constipation 03/02/21 oral powder packet #10 ea prednisone 10 mg tablet 10 mg PO DAILY #10 tabs 03/02/21 Allergies Allergy/AdvReac Type Severity Reaction Status Date / Time adhesive AdvReac Mild Rash Verified 02/28/21 06:49 Review of Systems Review of Systems Narrative: GENERAL: Denies chills, fatigue, malaise, fever, sweats. HEENT: Denies sinus pain, ear pain, sore throat, difficulty swallowing, dizziness. RESPIRATORY: Denies dyspnea, cough, wheezing, hemoptysis, sputum. CARDIOVASCULAR: Denies chest pain, palpitations, orthopnea, edema, GASTROINTESTINAL: Denies nausea, vomiting, abdominal pain, diarrhea, constipation, melena. : Denies dysuria, frequency, incontinence, hematuria, urinary retention. MUSCULOSKELETAL: See HPI SKIN: Denies rash, skin lesions, or other NEUROLOGIC: Denies weakness, headache, numbness, change in speech, confusion, seizures, incoordination. PSYCHIATRIC: No concerning psychosocial issues. 12 point review of systems is negative except for those stated above Patient History Medical History Abrasion (02/25/21) Anxiety Asthma Chronic pain disorder Depression Easy bruisability Elevated coronary artery calcium score Fibromyalgia GERD (gastroesophageal reflux disease) HTN (hypertension) Hyperlipidemia ILD (interstitial lung disease) Osteoarthritis RBBB (right bundle branch block) Sarcoid neuropathy Sarcoidosis Surgical History H/O total hip arthroplasty (04/21/17) History of bunionectomy of left great toe (10/2015) History of hysterectomy History of lung biopsy Hx of cardiac cath Hx of tonsillectomy Family History Mother COPD (chronic obstructive pulmonary disease) Cancer Hypertension Father Aneurysm Asthma Social History household members: children occupational status: other (Retired) Smoking Status: Never smoker alcohol intake: current (1 glass of wine Qnight) Smoking Status: Never smoker alcohol intake frequency: 0-2 drinks per day Alcohol type: wine Substance Use Type: does not use Exam Narrative Exam Narrative: GENERAL: [66] year old patient appears stated age. Well-developed patient, in mild distress. HEAD: Atraumatic. Normocephalic. EYES: Pupils equal round and reactive. Extraocular motions intact. No scleral icterus. No injection or drainage. ENT: Nose without bleeding, purulent drainage. Throat without erythema, tonsillar hypertrophy or exudate. Airway patent. NECK: Trachea midline. Non tender CARDIOVASCULAR: Regular rate and rhythm without murmurs, gallops, or rubs. RESPIRATORY: Clear to auscultation. Breath sounds equal bilaterally. No wheezes, rales, or rhonchi. GASTROINTESTINAL: Abdomen soft, non-tender, nondistended. EXTREMITIES: Shortening external rotation of left hip with tenderness to palpation BACK: Nontender without deformity or crepitance. No flank tenderness. NEURO: AOx3. SKIN: No rash or erythema of visible areas Initial Vital Signs Initial Vital Signs: Vital Signs Pulse Oximetry 95 04/04/22 16:47 Procedures Orthopedic Joint Reduction Joint #1: Time Out Performed: Yes Side: left Joint Reduction Location: hip Technique used: direct manipulation Post-reduction neuro exam: intact Post-reduction vascular: intact Post Reduction X-Ray Obtained: Yes Post Reduction X-Ray Results: reduced Splint Applied: No Patient Tolerated Procedure: Well Procedural Sedation Consent signed: Yes Time out performed: Yes Indication: fracture/dislocation reduction ASA Class: II Mallampati Airway Classification: Class II IV Propofol dose (mg): 140 Intraservice time/total sedation time (min): 11 ED Sedation Level: Moderate (Concious) Patient Tolerated Procedure: Well Complications: none Course Orders Ordered: Discontinued Medications Propofol (Propofol 200 Mg/20 Ml Vial) 130 mg 2 mg/kg (130 mg) IV NOW ONE Stop: 04/04/22 18:12 Last Admin: 04/04/22 18:49 Dose: Not Given Documented By: CTS Propofol (Propofol 200 Mg/20 Ml Vial) 140 mg IV NOW ONE Stop: 04/04/22 18:49 Last Admin: 04/04/22 18:23 Dose: 140 mg Documented By: CTS Vital Signs Vital signs: Vital Signs - 8 hr 04/04/22 16:48 Temperature 97.8 F Pulse Rate 78 Respiratory Rate 16 Blood Pressure 172/72 H Pulse Oximetry 97 Oxygen Delivery Method Room Air MDM - Fall Lab Data Labs: Point of Care Testing Test Results Negative Imaging Data Extremity x-ray #1: Radiologist's Impression: Lupe Wright??66??F??1955 ? Allergy/Adv: adhesive Close Hip X-Ray (Signed) KatieCruz - 04/04/22 Hip X-Ray (Signed) Rudy Quezada - 04/04/22 Lower Extremity Ultrasound (Signed) Shemar Bliss - 03/29/21 Hip X-Ray (Signed) QuezadaRudy sanders - 03/29/21 Hip X-Ray (Signed) Jaspreet Coulter - 02/28/21 Outside EKG 01/14/21 Hip MRI (Signed) Angelo Kingsley - 11/03/20 Lumbar Spine MRI (Signed) Tawanda Kwok - 08/02/19 Cervical Spine MRI (Signed) Tawanda Kwok - 08/02/19 Hip X-Ray (Signed) Mor Zepeda - 06/13/19 Outside EKG 03/16/17 Launch?[place] [address] XRay Report Signed Patient: Lupe Wright MR#: [id number] : 1955 Acct:[id number] Age/Sex: 66 / F Date of Service: 04/04/22 Loc: ED Accession Number: [id number] ?? Procedure: XR hip w pel if done LT 2V Ordering Provider: Edwin Love D.O. PROCEDURE:? XR HIP W PEL IF DONE LT 2V ? INDICATIONS:? hip pain,short/rotated ? TECHNIQUE:? 2 views of the hip were acquired.? ? COMPARISON:? [facility], , XR HIP W PEL IF DONE LT 2V, 03/29/2021, 12:24. ? FINDINGS:? ? Bones:? Bilateral hip prosthesis present.? There is superior dislocation of the left prosthesis.? No evidence of fracture.? Pelvic ring intact. Generalized decrease in osseous mineralization noted. ? Soft tissues:? No suspicious soft tissue calcifications or masses.? ? IMPRESSION:? ? Dislocated left total hip arthroplasty ? Total right hip arthroplasty in place ? Osteopenia without fracture ? ? ? Approved by: Rudy Quezada M.D. on 04/04/2022 at 16:56? Extremity x-ray #2: Radiologist's Impression: [address] [address] XRay Report Signed Patient: Lupe Wright MR#: [id number] : 1955 Acct:[id number] Age/Sex: 66 / F Date of Service: 04/04/22 Loc: ED Accession Number: [id number] ?? Procedure: XR hip w pel if done LT 2V Ordering Provider: Omi Lau D.O. PROCEDURE:? XR HIP W PEL IF DONE LT 2V ? INDICATIONS:? post reduction ? TECHNIQUE:? 2 view(s) of the hip acquired.? ? COMPARISON: [facility], CR, XR HIP W PEL IF DONE LT 2V, 04/04/2022, 16:52. ? FINDINGS:? ? Bones:? Postreduction views demonstrate interval reduction of the left hip prosthesis dislocation. ? Soft tissues:? Overlying postoperative changes are noted.? No suspicious soft tissue densities.? ? ? IMPRESSION:? Successful reduction of the left hip replacement. ? Dictated by: Cruz Wilson M.D. on 04/04/2022 at 19:06 ? ? Approved by: Cruz Wilson M.D. on 04/04/2022 at 19:06 ? Discharge Plan Departure Patient Disposition: Home Clinical Impression: Hip dislocation, left Instructions: DI for Hip Dislocation -- Adult Activity Restrictions/Additional Instructions: *You have been diagnosed with [left hip dislocation with successful reduction *What to do: *Please continue to take your regular medications as directed. [ ] New medication prescriptions sent to your pharmacy: [ ] [ ] New medication written as a paper prescription [x ] No new medications given *Please follow up with your primary orthopedic provider in 2-3 days, call for an appointment. Let them know you were seen in the Emergency Department and that we ask that you be seen in follow up. We will electronically transmit a record of today's note if your PCP is in our system * please resume precautions that were given in the postoperative phase which includes being careful when your flexing at the hip, getting out of chairs etc.. *Return to Emergency Department if you should have any new, worsening or concerning symptoms, such as [fever greater than 101 F, shaking chills, worsening pain, persistent vomiting or other bothersome symptoms] Prescriptions: No Action gabapentin [Neurontin] 600 MG tablet 600 mg PO SEEINSTR Qty: 0 Rx Instructions: 600mg qam, qnoon, 900mg hs cyclobenzaprine 10 MG tablet 10 mg PO TID PRN (Reason: Muscle Spasm) Qty: 0 hydroxychloroquine [Plaquenil] 200 MG tablet 400 mg PO QDAY Qty: 0 losartan 50 mg Tablet 50 mg PO BID ropinirole 3 mg Tablet 3 mg PO BEDTIME amlodipine 5 mg Tablet 5 mg PO BID amitriptyline 50 mg Tablet 50 mg PO BEDTIME naproxen sodium 220 mg Tablet 220 mg PO BID PRN (Reason: Pain) folic acid 1 mg Tablet 1 - 5 mg PO DAILY montelukast 10 mg Tablet 10 mg PO BID albuterol sulfate 90 mcg/actuation Hfa Aerosol Inhaler 2 puff INHALATION Q4-6H PRN (Reason: Shortness Of Breath) omeprazole 20 mg Tablet,Delayed Release (Dr/Ec) 20 mg PO BID ciclesonide 80 mcg/actuation Hfa Aerosol Inhaler 1 puff INHALATION BID acetaminophen 325 mg Tablet 650 mg PO TID Qty: 60 0RF aspirin 81 mg Tablet,Delayed Release (Dr/Ec) 81 mg PO BID Qty: 60 0RF oxycodone 5 mg Tablet 5 mg PO Q3HR PRN (Reason: Pain, Moderate (4-6)) Qty: 60 0RF Rx Instructions: 1-3 tablets p.o. every 3 hours as needed for pain polyethylene glycol 3350 17 gram Powder In Packet 17 gm PO DAILY PRN (Reason: Constipation) Qty: 10 0RF prednisone 10 mg tablet 10 mg PO DAILY Qty: 10 0RF Referrals: Chrissy Looney PA-C [Primary Care Provider] - Visit Report Forms: Patient Portal/API
--- NOTE | 2022-04-04 19:35 | PC.NURSE ---
IV DC'd and helping pt get ready for transport home. Pt refusing help from RN to dress. WC in room. pt waiting for son.
--- NOTE | 2022-04-04 20:07 | PC.NURSE ---
Pt left without her DC instructions.
== END 2022-04-04 19:40 | disposition home or self-care (01) ==
PROVIDERS: Emergency Provider Emergency Medicine; Family Provider Physician Assistant Medical; PCP Physician Assistant Medical
DX: S73.005A Unspecified dislocation of left hip, initial encounter (principal); Z96.642 Presence of left artificial hip joint
CPT/HCPCS: 27265; 36415; 73502; 99152; 99284; 99285; 99291; J2704

== ENCOUNTER → 2022-06-25 12:03 | Outpatient (CLI) | payer OTHER, MEDICARE, SELFPAY ==
[2021-02-28 13:21] VITALS: BMI 27.4
--- NOTE | 2022-06-25 12:05 | DI.CT.S_ITS ---
PROCEDURE: CT PEL WO CON INDICATIONS: Left hip anterior instability TECHNIQUE: Noncontrast 3 mm axial sections acquired through the bony pelvis, with coronal and sagittal reformatting. COMPARISON: [facility], CR, XR HIP 2 VIEWS LEFT, 06/04/2022, 17:36. FINDINGS: Image quality: Excellent. Bones: Postsurgical changes are seen from bilateral hip arthroplasties with associated metallic streak artifact. Hardware alignment appears normal bilaterally without signs of loosening or perihardware fracture. Pelvic bones are intact. Degenerative changes are seen in the lower lumbar spine. Soft tissues: The musculature surrounding the hips is normal in bulk. Soft tissues of the pelvis demonstrate colonic diverticulosis without signs of acute diverticulitis. Status post hysterectomy. IMPRESSION: 1. Postsurgical changes from bilateral hip arthroplasties. No acute hardware complication or osseous fracture identified. 2. Colonic diverticulosis. Approved by: Shemar Bliss M.D. on 06/25/2022 at 20:21
--- NOTE | 2022-06-25 12:06 | DI.CT.S_ITS ---
PROCEDURE: CT LE LT W CON INDICATIONS: Left hip anterior instability TECHNIQUE: Noncontrast 3 mm axial sections acquired through the bony pelvis. Additional 3 mm axial sections acquired through the symptomatic hip joint, with coronal and sagittal reformats. COMPARISON: [facility] Outside Film, CR, XR HIP 2 VIEWS LEFT, 06/04/2022, 17:36. FINDINGS: Image quality: Excellent. Bones: Postsurgical changes are again seen from left total hip arthroplasty. Metallic hardware components are intact without signs of loosening. Acetabular component appears normally positioned without malrotation. Femoral head component is well centered within the acetabular cup. No acute osseous fracture. Joint space narrowing is seen in the left medial femorotibial compartment. Visualized osseous structures otherwise intact. Soft tissues: No significant left hip effusion or periarticular mass. Musculature surrounding the left hip is normal in bulk. The included soft tissues of the pelvis demonstrate colonic diverticulosis. IMPRESSION: Postsurgical changes from left hip arthroplasty with hardware components in expected positions. No acute hardware complication identified. No acute osseous fracture. Approved by: Shemar Bliss M.D. on 06/25/2022 at 20:21
== END ==
PROVIDERS: Family Provider Physician Assistant Medical; PCP Physician Assistant Medical; Referring Provider Orthopaedic Surgery; Visit Provider Orthopaedic Surgery
DX: T84.9XXA Unspecified complication of internal orthopedic prosthetic device, implant and graft, initial encounter (principal); M16.12 Unilateral primary osteoarthritis, left hip; K57.90 Diverticulosis of intestine, part unspecified, without perforation or abscess without bleeding
CPT/HCPCS: 72192; 73700

== ENCOUNTER 2022-07-16 18:49 | Emergency (ER) | payer OTHER, MEDICARE, SELFPAY ==
[2021-02-28 13:21] VITALS: BMI 27.4
[2022-07-16] VITALS (18 sets, daily range): BP systolic 118–178; BP diastolic 60–90; PULSE 76–83; RESP 15–26; TEMP 36.7; O2SAT 81–99; BMI 26.5
--- NOTE | 2022-07-16 18:55 | DI.RAD.S_ITS ---
PROCEDURE: XR HIP W PEL IF DONE LT 2V INDICATIONS: left hip dislocation. History of same TECHNIQUE: Two views of the hip were acquired. COMPARISON: [facility], [facility], XR HIP W PEL IF DONE LT 2V, 04/04/2022, 18:27. FINDINGS: Bilateral total hip arthroplasties. Complete superior dislocation of the left hip prosthesis femoral component. IMPRESSION: Complete superior dislocation of the left hip prosthesis femoral component. Dictated by: Woo Roberts M.D. on 07/16/2022 at 19:59 Approved by: Woo Roberts M.D. on 07/16/2022 at 20:02
--- NOTE | 2022-07-16 19:01 | ED.LOWEXIN ---
HPI - Extremity Injury (Lower) General Chief Complaint: Extremity Injury, Lower Stated Complaint: Left hip dislocation Time Seen by Provider: 07/16/22 18:51 Source: EMS Mode of arrival: EMS History of Present Illness HPI Narrative: Patient is a 67-year-old female with history of bilateral hip replacement the left was done about 1 year ago it has dislocated twice before. She says she was standing at the kitchen counter cutting bread when it suddenly went out on her. She does admit to drinking some wine tonight. She did hit her head does not think she would loss of consciousness. She denies any chest pain palpitations or shortness of breath. Related Data Home Medications Medication Instructions Recorded Confirmed cyclobenzaprine 10 mg tablet 10 mg PO TID PRN Muscle Spasm ##0 03/31/17 02/28/21 gabapentin 600 mg tablet 600 mg PO SEEINSTR ##0 03/31/17 02/28/21 (Neurontin) hydroxychloroquine 200 mg tablet 400 mg PO QDAY ##0 03/31/17 02/28/21 (Plaquenil) albuterol sulfate 90 mcg/actuation 2 puff inhalation Q4-6H PRN 02/26/21 02/28/21 aerosol inhaler Shortness Of Breath amitriptyline 50 mg tablet 50 mg PO BEDTIME 02/26/21 02/28/21 amlodipine 5 mg tablet 5 mg PO BID 02/26/21 02/28/21 ciclesonide 80 mcg/actuation 1 puff inhalation BID 02/26/21 02/28/21 aerosol inhaler folic acid 1 mg tablet 1 - 5 mg PO DAILY Mouth sores 02/26/21 02/28/21 losartan 50 mg tablet 50 mg PO BID 02/26/21 02/28/21 montelukast 10 mg tablet 10 mg PO BID 02/26/21 02/28/21 naproxen sodium 220 mg tablet 220 mg PO BID PRN Pain 02/26/21 02/28/21 omeprazole 20 mg tablet,delayed 20 mg PO BID 02/26/21 02/28/21 release ropinirole 3 mg tablet 3 mg PO BEDTIME RLS 02/26/21 02/28/21 Previous Rx's Medication Instructions Recorded acetaminophen 325 mg tablet 650 mg PO TID #60 tabs 03/02/21 aspirin 81 mg tablet,delayed 81 mg PO BID #60 tabs 03/02/21 release oxycodone 5 mg tablet 5 mg PO Q3HR PRN Pain, Moderate 03/02/21 (4-6) #60 tabs polyethylene glycol 3350 17 gram 17 gm PO DAILY PRN Constipation 03/02/21 oral powder packet #10 ea prednisone 10 mg tablet 10 mg PO DAILY #10 tabs 03/02/21 hydrocodone 5 mg-acetaminophen 325 1 tab PO Q6H PRN pain #10 tabs 07/16/22 mg tablet Allergies Allergy/AdvReac Type Severity Reaction Status Date / Time adhesive AdvReac Mild Rash Verified 02/28/21 06:49 Review of Systems Review of Systems Narrative: GENERAL: Denies chills,fever HEENT: Denies throat pain RESPIRATORY: Denies dyspnea, cough, wheezing CARDIOVASCULAR: Denies chest pain, palpitations GASTROINTESTINAL: Denies nausea, vomiting MUSCULOSKELETAL: See HPI SKIN: No rash, no laceration, no pruritus NEUROLOGIC: Denies weakness, dizziness, headache, numbness 8 point review of systems is negative except for those stated above and HPI Patient History Medical History Abrasion (02/25/21) Anxiety Asthma Chronic pain disorder Depression Easy bruisability Elevated coronary artery calcium score Fibromyalgia GERD (gastroesophageal reflux disease) HTN (hypertension) Hyperlipidemia ILD (interstitial lung disease) Osteoarthritis RBBB (right bundle branch block) Sarcoid neuropathy Sarcoidosis Surgical History H/O total hip arthroplasty (04/21/17) History of bunionectomy of left great toe (10/2015) History of hysterectomy History of lung biopsy Hx of cardiac cath Hx of tonsillectomy Family History Mother COPD (chronic obstructive pulmonary disease) Cancer Hypertension Father Aneurysm Asthma Social History household members: children occupational status: other (Retired) Smoking Status: Never smoker alcohol intake: current (1 glass of wine Qnight) Smoking Status: Never smoker alcohol intake frequency: 0-2 drinks per day Alcohol type: wine Substance Use Type: does not use Exam Initial Vital Signs Initial Vital Signs: Vital Signs Temperature 98.1 F 07/16/22 18:53 Pulse Rate 78 07/16/22 18:53 Respiratory Rate 18 07/16/22 18:53 Blood Pressure 178/71 H 07/16/22 18:53 Pulse Oximetry 99 07/16/22 18:53 Oxygen Delivery Method 07/16/22 18:53 GENERAL: Alert pleasant 67-year-old female and in no acute distress. HEENT: Head atraumatic,EOMI, pupils reactive, face symmetric, moist mucous membranes CARDIOVASCULAR: Regular rate and rhythm without murmurs, rubs or gallops. RESPIRATORY: Breath sounds equal bilaterally, no wheezes rales or rhonchi. ABDOMEN: Soft, nontender. Normoactive bowel sounds all 4 quadrants. No guarding or rebound. EXTREMITIES: Normal range of motion, no clubbing or edema. Neurovascularly intact Left leg shortened externally rotated NEUROLOGICAL: Alert and oriented x4 SKIN: Warm, dry, no laceration, no petechiae, no rashes or lesions. Procedures Orthopedic Joint Reduction Joint #1: Side: left Joint Reduction Location: hip Analgesia: procedural sedation Technique used: other (Anterior pressure with pulling on leg) Post-reduction neuro exam: intact Post-reduction vascular: intact Post Reduction X-Ray Obtained: Yes Post Reduction X-Ray Results: reduced Splint Applied: No Procedural Sedation Indication: fracture/dislocation reduction Preparation: telemetry monitor applied, pulse oximeter, capnometry used, supplemental O2 applied and suction/airway equipment at bedside Course Orders Ordered: Discontinued Medications Hydrocodone Bitart/Acetaminophen (Hydrocodone/Acet 5/325 Prepack) 1 bottle MIS SEEINSTR ONE Stop: 07/16/22 22:53 Last Admin: 07/16/22 23:41 Dose: 1 bottle Documented By: OW Hydromorphone HCl (Hydromorphone 0.5 Mg Inj) 0.5 mg IV NOW ONE Stop: 07/16/22 22:53 Last Admin: 07/16/22 22:56 Dose: 0.5 mg Documented By: OW Ketorolac Tromethamine (Ketorolac 30 Mg/Ml Vial) 15 mg IV NOW ONE Stop: 07/16/22 22:01 Last Admin: 07/16/22 22:09 Dose: 15 mg Documented By: OW Propofol (Propofol 200 Mg/20 Ml Vial) 70 mg 1 mg/kg (70 mg) IV NOW ONE Stop: 07/16/22 20:37 Last Admin: 07/16/22 21:06 Dose: 70 mg Documented By: DIMITRI Propofol (Propofol 200 Mg/20 Ml Vial) 135 mg 2 mg/kg (135 mg) IV NOW ONE Stop: 07/16/22 20:51 Last Admin: 07/16/22 21:38 Dose: 130 mg Documented By: DIMITRI Propofol (Propofol 200 Mg/20 Ml Vial) 135 mg 2 mg/kg (135 mg) IV NOW ONE Stop: 07/16/22 21:23 Last Admin: 07/16/22 21:45 Dose: 100 mg Documented By: DIMITRI Vital Signs Vital signs: Vital Signs - 8 hr 07/16/22 18:53 07/16/22 19:35 07/16/22 20:55 Temperature 98.1 F Pulse Rate 78 77 80 Respiratory Rate 18 24 24 Blood Pressure 178/71 H 146/67 H 162/75 H Pulse Oximetry 99 94 98 Oxygen Delivery Method Room Air Room Air Oxygen Flow Rate 07/16/22 21:06 07/16/22 21:34 07/16/22 21:10 Temperature Pulse Rate 81 78 83 Respiratory Rate 20 20 26 H Blood Pressure 164/76 H 132/78 166/82 H Pulse Oximetry 81 L 98 91 Oxygen Delivery Method Nasal Cannula Oxygen Flow Rate 2 07/16/22 21:15 07/16/22 21:20 07/16/22 21:25 Temperature Pulse Rate 82 81 80 Respiratory Rate 18 18 16 Blood Pressure 147/70 H 142/67 H 133/64 Pulse Oximetry 94 97 97 Oxygen Delivery Method Nasal Cannula Nasal Cannula Nasal Cannula Oxygen Flow Rate 2 2 2 07/16/22 21:36 07/16/22 21:40 07/16/22 21:45 Temperature Pulse Rate 76 80 Respiratory Rate 20 21 Blood Pressure 130/60 118/62 135/63 Pulse Oximetry 88 L 96 Oxygen Delivery Method Nasal Cannula Nasal Cannula Oxygen Flow Rate 2 07/16/22 21:50 07/16/22 21:50 07/16/22 22:09 Temperature Pulse Rate 79 79 Respiratory Rate 15 22 Blood Pressure 138/68 138/68 Pulse Oximetry 96 Oxygen Delivery Method Room Air Oxygen Flow Rate 07/16/22 22:00 07/16/22 22:15 07/16/22 22:30 Temperature Pulse Rate 77 78 77 Respiratory Rate 18 20 20 Blood Pressure 139/69 142/65 H 156/68 H Pulse Oximetry 95 98 97 Oxygen Delivery Method Room Air Room Air Room Air Oxygen Flow Rate 07/16/22 22:30 Temperature Pulse Rate 77 Respiratory Rate 18 Blood Pressure Pulse Oximetry 98 Oxygen Delivery Method Oxygen Flow Rate MDM - Extremity Injury (Lower) Lab Data Result diagrams: 07/16/22 20:50 07/16/22 20:50 Labs: Lab Results 07/16/22 07/16/22 07/16/22 Range/Units 19:06 20:50 20:50 WBC 7.5 (4.5-11.0) X10^3/uL RBC 3.73 L (4.0-5.2) X10^6/uL Hgb 11.5 L (12.0-16.0) g/dL Hct 34.8 L (36-46) % MCV 93.5 (80-100) fL MCH 30.8 (26-34) PG MCHC 33.0 (30-36) % RDW 17.2 H (11.6-14.8) % Plt Count 313 (150-400) X10^3/uL Neut % (Auto) 76.0 H (50-75) % Lymph % (Auto) 14.0 L (25-40) % [place] % (Auto) 7.3 (3-14) % Eos % (Auto) 1.5 L (2-4) % Baso % (Auto) 1.2 (0-2) % Neut # (Auto) 5700 (3710-0942) /uL Lymph # (Auto) 1100 (8365-5200) /uL [place] # (Auto) 600 (0-900) /uL Eos # (Auto) 100 (0-450) /uL Baso # (Auto) 100 (0-100) /uL Sodium 138 (137-145) mmol/L Potassium 4.0 (3.4-5.1) mmol/L Chloride 102 (98-107) mmol/L Carbon Dioxide 24 (22-32) mmol/L BUN 18 H (7-17) mg/dL Creatinine 0.76 (0.52-1.04) mg/dL Estimated GFR > 60 (>60) mL/min BUN/Creatinine Ratio 23.7 H (6-22) Glucose 84 (80-110) mg/dL Calcium 8.5 (8.4-10.2) mg/dL Total Bilirubin 0.2 (0.2-1.3) mg/dL AST 33 (14-36) IU/L ALT 29 (<35) IU/L Alkaline Phosphatase 92 (38-126) U/L Total Protein 6.5 (6.3-8.2) g/dL Albumin 4.0 (3.5-5.0) g/dL Globulin 2.5 (1.7-4.1) g/dL Albumin/Globulin Ratio 1.6 (1.0-2.8) SARS-CoV-2 (PCR) Negative (Negative) Point of Care Testing Test Results Not applicable Imaging Data Extremity x-ray #1: Radiologist's Impression: [address] [address] XRay Report Signed Patient: Lupe Wright MR#: [id number] : 1955 Acct:[id number] Age/Sex: 67 / F Date of Service: 07/16/22 Loc: ED Accession Number: [id number] ?? Procedure: XR hip w pel if done LT 2V Ordering Provider: Orquidea Ahn D.O. PROCEDURE:? XR HIP W PEL IF DONE LT 2V ? INDICATIONS:? left hip dislocation. History of same ? TECHNIQUE:? Two views of the hip were acquired.? ? COMPARISON:? [facility], CR, XR HIP W PEL IF DONE LT 2V, 04/04/2022, 18:27. ? FINDINGS:? ? Bilateral total hip arthroplasties.? Complete superior dislocation of the left hip prosthesis femoral component. ? IMPRESSION:? Complete superior dislocation of the left hip prosthesis femoral component.? ? ? Dictated by: Woo Roberts M.D. on 07/16/2022 at 19:59 ? ? CT scan - head: Radiologist's Impression: Signed Patient: Lupe Wright MR#: [id number] : 1955 Acct:[id number] Age/Sex: 67 / F Date of Service: 07/16/22 Loc: ED Accession Number: [id number] ?? Procedure: CT head/brain wo con Ordering Provider: Orquidea Ahn D.O. PROCEDURE:? CT HEAD/BRAIN WO CON ? INDICATIONS:? Trauma, fall ? TECHNIQUE:? Noncontrast 4.5 mm thick angled axial sections acquired from the foramen magnum to the vertex, with coronal and sagittal reformats.? For radiation dose reduction, the following was used:? automated exposure control, adjustment of mA and/or kV according to patient size.? ? COMPARISON:? None. ? FINDINGS:? Image quality:? Excellent.? ? CSF spaces:? Basal cisterns are patent.? No extra-axial fluid collections.? The ventricles are symmetric in size and shape.? ? Brain:? No intracranial bleeds or masses.? There is cerebral volume loss for age, with resultant ventricular and sulcal prominence.? There are periventricular and deep white matter chronic small vessel ischemic changes.? There is intracranial internal carotid artery atherosclerosis.? ? Skull and face:? Calvarium and visualized facial bones appear intact, without suspicious lesions.? ? Sinuses:? Visualized sinuses and mastoids are clear.? ? IMPRESSION:? No acute intracranial finding. ? ? Dictated by: Woo Robrets M.D. on 07/16/2022 at 19:28 ? ? Approved by: Woo Roberts M.D. on 07/16/2022 at 19:29 ? CT - cervical spine: Radiologist's Impression: atient: Lupe Wright MR#: [id number] : 1955 Acct:[id number] Age/Sex: 67 / F Date of Service: 07/16/22 Loc: ED Accession Number: [id number] ?? Procedure: CT cervical spine wo con Ordering Provider: Orquidea Ahn D.O. PROCEDURE:? CT CERVICAL SPINE WO CON ? INDICATIONS:? Fall ? TECHNIQUE:? Noncontrast 3 mm thick sections acquired from the skull base to the T4 level.? Sagittal and coronal reformats were then constructed.? For radiation dose reduction, the following was used:? automated exposure control, adjustment of mA and/or kV according to patient size.? ? COMPARISON:? [facility], CR, XR CHEST 1V, 07/16/2022, 19:15. ? FINDINGS:? ? No acute fracture.? Vertebral body heights maintained.? Presumably degenerative anterolisthesis of C3 on C4 measuring 3 mm and of C4 on C5 measuring 6 mm.? Normal configuration of the craniocervical junction.? No suspicious bone lesion.? ? IMPRESSION:? No CT evidence of acute traumatic cervical spine injury. ? ? ? Dictated by: Woo Roberts M.D. on 07/16/2022 at 19:29 ?? Chest x-ray: Radiologist's Impression: JOAN Antunez [id number] XRay Report Signed Patient: Lupe Wright MR#: [id number] : 1955 Acct:[id number] Age/Sex: 67 / F Date of Service: 07/16/22 Loc: ED Accession Number: [id number] ?? Procedure: XR chest 1V Ordering Provider: Orquidea Ahn D.O. PROCEDURE:? XR CHEST 1V ? INDICATIONS:? Trauma, fall ? TECHNIQUE:? One view of the chest was acquired.? ? COMPARISON:? None. ? FINDINGS:? ? Exam limited by patient body habitus.? Bilateral airspace opacities which are nonspecific.? No pleural effusion or pneumothorax.? No obvious bone abnormality. ? IMPRESSION:? Exam limited by body habitus and single-view technique.? No obvious traumatic finding.? Nonspecific bilateral interstitial airspace opacities with no comparison examination.? ? ? Dictated by: Woo Roberts M.D. on 07/16/2022 at 20:03 ? ? Approved by: Woo Roberts M.D. on 07/16/2022 at 20:04 ? Extremity x-ray #2: Radiologist's Impression: Signed Patient: Lupe Wright MR#: [id number] : 1955 Acct:[id number] Age/Sex: 67 / F Date of Service: 07/16/22 Loc: ED Accession Number: [id number] ?? Procedure: XR pelvis 1-2V Ordering Provider: Orquidea Ahn D.O. PROCEDURE:? XR PELVIS 1-2V ? INDICATIONS:? POST REDUCTION ? TECHNIQUE:? Single-view of the pelvis acquired.? ? COMPARISON:? [facility], [facility], XR HIP W PEL IF DONE LT 2V, 07/16/2022, 19:06. ? FINDINGS:? ? Bones:? There is interval reduction of the previously dislocated left hip prosthesis.? No definite fracture identified on the current limited study.? Right hip prosthesis is redemonstrated. ? Soft tissues:? Visualized bowel gas pattern is normal.? No suspicious soft tissue calcifications.? ? IMPRESSION:? ? 1. Interval reduction of the previously dislocated left hip prosthesis. ? ? Dictated by: Eliseo Angel M.D. on 07/16/2022 at 23:23 ? ? [facility] Narrative Medical decision making narrative: Initial attempt of left hip reduction was unsuccessful. Dr. Lin consulted recommended different technique of anterior pressure and pulling on leg. This technique was very successful. Patient is instructed to keep her toes in front and not turn them. Discharge Plan Departure Patient Disposition: Home Clinical Impression: Hip dislocation, left Instructions: DI for Hip Dislocation -- Adult Activity Restrictions/Additional Instructions: *You have been diagnosed with left hip dislocation *What to do: Please keep your toes facing forward. If they start turning this can pop her hip out. Expect to be sore for a few days. Please monitor the skin on that left hip. Apply antibiotic ointment 1-2 times daily. *Continue to take medications as directed [place] 1 tablet every 6 hours if needed for severe pain --> SENT TO [facility] IN [place] *Follow up with your primary care provider in 2-3 days or call [phone] Orosco tomorrow *Return to ER if you should have increasing pain redness pops out again or any new, worsening or concerning symptoms CONTROLLED SUBSTANCE DISCHARGE (Narcotoic/benzodiazepine/Flexeril/Phenergan) 1. You have been prescribed narcotic medications, it does have acetaminophen/Tylenol/paracetamol in it, DO NOT TAKE MORE THAN 4,00mg in 24 hours of Tylenol. TRAMADOL DOES NOT CONTAIN TYLENOL 2. Please understand that we cannot provide further refills of narcotics, benzodiazepines or controlled substances through the ED and her pain management will need to be through your provider. 3. While on these medications you cannot drive or operate heavy machinery. 4. You cannot sign legal documents or perform any duties such as this. 5. As long as you're taking opiate pain medications he should also be taking a stool softener such as Colace, Dulcolax, MiraLAX or prune juice, to help avoid constipation. Prescriptions: New hydrocodone-acetaminophen 5-325 mg tablet 1 tab PO Q6H PRN (Reason: pain) Qty: 10 0RF No Action gabapentin [Neurontin] 600 MG tablet 600 mg PO SEEINSTR Qty: 0 Rx Instructions: 600mg qam, qnoon, 900mg hs cyclobenzaprine 10 MG tablet 10 mg PO TID PRN (Reason: Muscle Spasm) Qty: 0 hydroxychloroquine [Plaquenil] 200 MG tablet 400 mg PO QDAY Qty: 0 losartan 50 mg Tablet 50 mg PO BID ropinirole 3 mg Tablet 3 mg PO BEDTIME amlodipine 5 mg Tablet 5 mg PO BID amitriptyline 50 mg Tablet 50 mg PO BEDTIME naproxen sodium 220 mg Tablet 220 mg PO BID PRN (Reason: Pain) folic acid 1 mg Tablet 1 - 5 mg PO DAILY montelukast 10 mg Tablet 10 mg PO BID albuterol sulfate 90 mcg/actuation Hfa Aerosol Inhaler 2 puff INHALATION Q4-6H PRN (Reason: Shortness Of Breath) omeprazole 20 mg Tablet,Delayed Release (Dr/Ec) 20 mg PO BID ciclesonide 80 mcg/actuation Hfa Aerosol Inhaler 1 puff INHALATION BID acetaminophen 325 mg Tablet 650 mg PO TID Qty: 60 0RF aspirin 81 mg Tablet,Delayed Release (Dr/Ec) 81 mg PO BID Qty: 60 0RF oxycodone 5 mg Tablet 5 mg PO Q3HR PRN (Reason: Pain, Moderate (4-6)) Qty: 60 0RF Rx Instructions: 1-3 tablets p.o. every 3 hours as needed for pain polyethylene glycol 3350 17 gram Powder In Packet 17 gm PO DAILY PRN (Reason: Constipation) Qty: 10 0RF prednisone 10 mg tablet 10 mg PO DAILY Qty: 10 0RF Referrals: Cristina Orosco MD [Physician] - Chrissy Looney PA-C [Primary Care Provider] - Visit Report Forms: Patient Portal/API
--- NOTE | 2022-07-16 19:04 | DI.CT.S_ITS ---
PROCEDURE: CT CERVICAL SPINE WO CON INDICATIONS: Fall TECHNIQUE: Noncontrast 3 mm thick sections acquired from the skull base to the T4 level. Sagittal and coronal reformats were then constructed. For radiation dose reduction, the following was used: automated exposure control, adjustment of mA and/or kV according to patient size. COMPARISON: [facility], CR, XR CHEST 1V, 07/16/2022, 19:15. FINDINGS: No acute fracture. Vertebral body heights maintained. Presumably degenerative anterolisthesis of C3 on C4 measuring 3 mm and of C4 on C5 measuring 6 mm. Normal configuration of the craniocervical junction. No suspicious bone lesion. IMPRESSION: No CT evidence of acute traumatic cervical spine injury. Dictated by: Woo Roberts M.D. on 07/16/2022 at 19:29 Approved by: Woo Roberts M.D. on 07/16/2022 at 19:32
--- NOTE | 2022-07-16 19:04 | DI.CT.S_ITS ---
PROCEDURE: CT HEAD/BRAIN WO CON INDICATIONS: Trauma, fall TECHNIQUE: Noncontrast 4.5 mm thick angled axial sections acquired from the foramen magnum to the vertex, with coronal and sagittal reformats. For radiation dose reduction, the following was used: automated exposure control, adjustment of mA and/or kV according to patient size. COMPARISON: None. FINDINGS: Image quality: Excellent. CSF spaces: Basal cisterns are patent. No extra-axial fluid collections. The ventricles are symmetric in size and shape. Brain: No intracranial bleeds or masses. There is cerebral volume loss for age, with resultant ventricular and sulcal prominence. There are periventricular and deep white matter chronic small vessel ischemic changes. There is intracranial internal carotid artery atherosclerosis. Skull and face: Calvarium and visualized facial bones appear intact, without suspicious lesions. Sinuses: Visualized sinuses and mastoids are clear. IMPRESSION: No acute intracranial finding. Dictated by: Woo Roberts M.D. on 07/16/2022 at 19:28 Approved by: Woo Roberts M.D. on 07/16/2022 at 19:29
--- NOTE | 2022-07-16 19:12 | DI.RAD.S_ITS ---
PROCEDURE: XR CHEST 1V INDICATIONS: Trauma, fall TECHNIQUE: One view of the chest was acquired. COMPARISON: None. FINDINGS: Exam limited by patient body habitus. Bilateral airspace opacities which are nonspecific. No pleural effusion or pneumothorax. No obvious bone abnormality. IMPRESSION: Exam limited by body habitus and single-view technique. No obvious traumatic finding. Nonspecific bilateral interstitial airspace opacities with no comparison examination. Dictated by: Woo Roberts M.D. on 07/16/2022 at 20:03 Approved by: Woo Roberts M.D. on 07/16/2022 at 20:04
[2022-07-16 19:38] LABS: COVID19 -Nasal RAPID Negative (Negative)
[2022-07-16 20:58] LABS: Add Manual Diff / Slide Review NO; Basophils Absolute Auto 100 /uL (0-100); Basophils Percent Auto 1.2 % (0-2); Eosinophils Absolute Auto 100 /uL (0-450); Eosinophils Percent Auto 1.5 % (2-4); Hematocrit 34.8 % (36-46); Hemoglobin 11.5 g/dL (12.0-16.0); Lymphocytes Absolute Auto 1100 /uL (1100-4500); Mean Corpuscular Hemoglobin 30.8 PG (26-34); Mean Corpuscular Volume 93.5 fL (80-100); Monocytes Absolute Auto 600 /uL (0-900); Monocytes Percent Auto 7.3 % (3-14); Neutrophils Absolute Auto 5700 /uL (1500-7000); Platelet Count 313 X10^3/uL (150-400); Red Blood Cell Count 3.73 X10^6/uL (4.0-5.2); Red Cell Distribution Width 17.2 % (11.6-14.8); White Blood Cell Count 7.5 X10^3/uL (4.5-11.0)
[2022-07-16] MEDS: propofoL 200 MG/20 ML VIAL 70 MG IV (21:06)
[2022-07-16 21:11] LABS: Alanine Aminotransferase 29 IU/L (<35); Albumin Globulin Ratio 1.6 (1.0-2.8); Alkaline Phosphatase 92 U/L (38-126); Aspartate Aminotransferase 33 IU/L (14-36); BUN Creatinine Ratio 23.7 (6-22); Bilirubin Total 0.2 mg/dL (0.2-1.3); Blood Urea Nitrogen 18 mg/dL (7-17); Calcium 8.5 mg/dL (8.4-10.2); Carbon Dioxide 24 mmol/L (22-32); Chloride 102 mmol/L (98-107); Estimated Glomerular Filt Rate > 60 mL/min (>60); Globulin 2.5 g/dL (1.7-4.1); Glucose 84 mg/dL (80-110); HEMOLYSIS < 15 (0-50); Sodium 138 mmol/L (137-145); Total Protein 6.5 g/dL (6.3-8.2)
--- NOTE | 2022-07-16 21:18 | DI.RAD.S_ITS ---
PROCEDURE: XR PELVIS 1-2V INDICATIONS: POST REDUCTION TECHNIQUE: Single-view of the pelvis acquired. COMPARISON: [facility], CR, XR HIP W PEL IF DONE LT 2V, 07/16/2022, 19:06. FINDINGS: Bones: There is interval reduction of the previously dislocated left hip prosthesis. No definite fracture identified on the current limited study. Right hip prosthesis is redemonstrated. Soft tissues: Visualized bowel gas pattern is normal. No suspicious soft tissue calcifications. IMPRESSION: 1. Interval reduction of the previously dislocated left hip prosthesis. Dictated by: Eliseo Angel M.D. on 07/16/2022 at 23:23 Approved by: Eliseo Angel M.D. on 07/16/2022 at 23:24
[2022-07-16] MEDS: propofoL 200 MG/20 ML VIAL 135 MG IV ×2 (21:38→21:45)
[2022-07-16] MEDS: KETOROLAC 30 MG/ML VIAL 15 MG IV (22:09)
[2022-07-16] MEDS: HYDROMORPHONE 0.5 MG INJ IV (22:56)
[2022-07-16] MEDS: HYDROCODONE/ACET 5/325 PREPACK 1 BOTTLE MISC (23:41)
--- NOTE | 2022-07-16 23:43 | PC.NURSE ---
2245: Pt assisted by this RN to bedside commode. Pt able to place weight on L leg. Pt reports pain on ambulation but states that she will be able to ambulate at home with the help of her son.
--- NOTE | 2022-07-16 23:46 | PC.NURSE ---
2230: Pt's skin on anterior hip has developed a 5 inch long abrasion after manual reduction of L hip. Area was cleaned and dressed by this RN. Skin care instruction given to pt.
== END 2022-07-16 23:48 | disposition home or self-care (01) ==
PROVIDERS: Emergency Provider Emergency Medicine; Family Provider Physician Assistant Medical; PCP Physician Assistant Medical
DX: S73.005A Unspecified dislocation of left hip, initial encounter (principal); S09.90XA Unspecified injury of head, initial encounter; Z79.899 Other long term (current) drug therapy; Z96.643 Presence of artificial hip joint, bilateral
CPT/HCPCS: 27265; 36415; 70450; 71045; 72125; 72170; 73502; 80053; 85025; 87635; 96374; 96375; 99284; 99285; C9803; J1170; J1885; J2704

== ENCOUNTER → 2022-08-05 14:28 | Outpatient (CLI) | payer OTHER, MEDICARE, SELFPAY ==
[2021-02-28 13:21] VITALS: BMI 27.4
== END ==
PROVIDERS: Family Provider Physician Assistant Medical; PCP Physician Assistant Medical; Referring Provider Internal Medicine Pulmonary Disease; Visit Provider Internal Medicine Pulmonary Disease
DX: Z13.820 Encounter for screening for osteoporosis (principal); Z78.0 Asymptomatic menopausal state; M85.88 Other specified disorders of bone density and structure, other site; Z90.710 Acquired absence of both cervix and uterus
CPT/HCPCS: 77080

== ENCOUNTER → 2022-08-11 10:14 | Outpatient (CLI) | payer OTHER, SELFPAY ==
[2021-02-28 13:21] VITALS: BMI 27.4
[2022-08-11 11:53] LABS: COVID19 -Nasal RAPID Negative (Negative)
== END ==
PROVIDERS: Family Provider Physician Assistant Medical; PCP Physician Assistant Medical; Referring Provider Orthopaedic Surgery; Visit Provider Orthopaedic Surgery
DX: Z20.822 Contact with and (suspected) exposure to COVID-19 (principal)
CPT/HCPCS: 87635; C9803

== ENCOUNTER 2022-08-12 08:33 | Inpatient (IN) | payer OTHER, SELFPAY ==
[2021-02-28 13:21] VITALS: BMI 27.4
[2022-08-07 12:20] VITALS: BMI 26.2
[2022-08-12] VITALS (15 sets, daily range): BP systolic 96–160; BP diastolic 50–84; PULSE 66–85; RESP 11–21; TEMP 35.8–36.7; O2SAT 93–100; BMI 26.2
[2022-08-12] MEDS: VANCOMYCIN 1,000 MG/200 ML PIGGYBACK 200 MG IV (12:56)
[2022-08-12] MEDS: CELECOXIB 200 MG CAPSULE PO (12:59)
[2022-08-12] MEDS: PREGABALIN 75 MG CAPSULE PO (13:00)
[2022-08-12] MEDS: ACETAMINOPHEN 325 MG TABLET 975 MG PO (13:00)
[2022-08-12] MEDS: LACTATED RINGERS 1,000 ML 42 ML IV ×2 (13:02→15:04)
--- NOTE | 2022-08-12 13:17 | DI.RAD.S_ITS ---
PROCEDURE: XR HIP W PEL IF DONE RT 2V INDICATIONS: revision jose david, left hip TECHNIQUE: AP pelvis and lateral view of the left hip acquired. COMPARISON: [facility], [facility], XR PELVIS 1-2V, 07/16/2022, 21:39. FINDINGS: Bones: Patient is status post revision of left hip arthroplasty, with hardware components in expected positions. Right hip arthroplasty is stable. The hip joint appears congruent. The visualized bony structures appear intact. Soft tissues: Overlying postoperative changes are noted. No suspicious soft tissue densities. IMPRESSION: Expected postsurgical change for revision of left hip arthroplasty. Dictated by: Bonnie Oviedo MD, PhD on 08/12/2022 at 16:52 Approved by: Bonnie Oviedo MD, PhD on 08/12/2022 at 16:53
--- NOTE | 2022-08-12 13:37 | PM.PREOP ---
Pre-operative Note COVID-19 COVID-19 status: Negative Interval Note History & Physical reviewed/Exam performed by Physician: Yes Changes to H&P: No
[2022-08-12] MEDS: CEFAZOLIN 2 GM/100 ML PREMIX 100 ML IV ×2 (14:10→21:35)
--- NOTE | 2022-08-12 14:11 | PM.OP.1 ---
Operative Date/Time/Diagnoses Date of procedure: 08/12/22 Time of procedure: 14:30 Pre-op diagnosis: Left total hip arthroplasty with prior anterior approach with anterior instability and history of 3 dislocations, severe spinal stenosis with a prior history of a left foot drop, degenerative scoliosis, history of sarcoidosis Post-op diagnosis: same Procedure & Clinicians Procedure: Left total hip revision posterior approach Same procedure as scheduled: Yes Indications: The patient has had a history of an anterior left total hip arthroplasty which was complicated by 3 anterior dislocations. Non-operative management has failed and the patient has requested revision total hip replacement. The risks, benefits and alternatives to surgery were discussed with the patient prior to proceeding. Risks discussed included, but were not limited to, failure to relieve pain, leg length discrepancy, dislocation, stiffness, infection, nerve damage, deep venous thrombosis, pulmonary embolism, stroke, coma, heart attack, permanent paralysis and , as well as the potential need for eventual revision of the prosthetic. Surgeon: Cristina Orosco Carburetor Repairer: Melissa Goode Anesthesia Type: Spinal Operative Notes Findings: Mild anterior instability. Difficult to dislocate even with maximum hyperextension extension and maximum external rotation. A rent in the anterior capsule and soft tissues in the anterior superior capsule. Good stability with increased offset with a +0 head, adequate anterior capsule repair Closure Type: primary Specimen(s): other (Cultures) Prosthetic devices, grafts, tissues, transplants, or devices: Orosco and nephew 32 mm +0 Oxinium head Estimated Blood Loss (mL): 100 Blood products transfused: none Procedure in detail: The patient was seen in the pre-operative area, where the patient identified the left hip as the operative site and this was marked with my initials. The patient received pre-operative antibiotics and was taken to the operating room and placed on the operative table in the right lateral decubitus position after satisfactory anesthesia. A web content director out was performed. The left leg was prepared from the ankle to the iliac crest with ChloroPrep in the usual fashion and draped through sterile drapes. The hip was approached through an approximately 18 cm incision centered over the greater trochanter and curving gently posteriorly as it went proximally. This was carried sharply to the fascia alvin, which was divided and retracted with a self retaining retractor. The trochanteric bursa was excised with care being taken to avoid the sciatic nerve, which was identified and protected throughout the case. The short external rotators were incised and the capsulomuscular flap was raised and tagged for later repair. Intraoperative cultures were sent of fluid and soft tissue. The hip was dislocated. I placed the patient's her range of motion after opening the posterior capsule it was actually quite difficult to dislocate it anteriorly. At and anticipated that she was impinging posteriorly but even with extreme hyperextension and external rotation there was no tendency towards impingement I can not find a source of her instability anteriorly. We meticulously placed the patient has her range of motion. Dislocated the hip posteriorly. Remove the femoral head. Carefully checked the femoral stem was noted that the stem was stable. Checked the acetabulum there was no evidence of injury to the acetabulum or problem with the liner. I did find a rent in the anterior capsule which was along the anterior superior capsule with the patient had been dislocating. Deep tissue was sent for cultures. Did a trial reduction with a +0 head. Leg lengths looked reasonable. She still came to full extension. She was stable in maximum extension external rotation guide placing her through a variety of different positions to dislocate her hip and could not dislocate it anteriorly. She had relatively normal Shuck. At 45? she was stable about 70-80 degrees of internal rotation and 120? she is stable to about 70-80 degrees of internal rotation. We carefully checked around the acetabulum. Then freshened the anterior aspect of the cup and repaired the anterior capsular rent with multiple interrupted nonabsorbable sutures using a straight needle refrigerated company driver and a Jerald needle refrigerated company driver. Final head was placed. The hip was reduced. Posterior capsule and soft tissues were repaired with interrupted nonabsorbable stitches. I specifically checked for anterior instability after the posterior capsular repair to make sure that we had not changed her stability. The hip was meticulously irrigated with normal saline. Finally the femoral head was impacted onto the stem. The acetabulum was cleared of all material and the hip relocated one final time. The capsulomuscular flap was then repaired to the greater trochanter though an awl hole using the tag sutures. The short external rotators were repaired with a nonabsorbable suture. The fascia alvin was closed with Vicryl. The subcutaneous layer was closed with barbed sutures and glue. An Aquacel Ag dressing was applied and the patient was taken to recovery having tolerated the procedure well. Complications: none Post-operative Condition: stable Disposition: Acute Care Plan for aftercare: The patient will be maintained on a standard total hip replacement protocol with weight bearing as tolerated and anterior and posterior hip precautions. The patient will receive Aspirin and sequential compression devices for DVT prophylaxis. The patient will be discharged home when safe for the home environment.
[2022-08-12] MEDS: TRANEXAMIC ACID 1,000 MG VIAL 2000 MG INJ ×2 (14:20→15:46)
[2022-08-12] MEDS: HYDROCORTISONE 100 MG/2 ML VIAL IV (14:41)
--- NOTE | 2022-08-12 15:09 | SUR.OPER ---
Lateral on padded OR bed. Gel axillary roll. Arms secured on padded armboard with pillow supporting top arm. Padded hip positioner braces x4 - anterior and posterior chest and pelvis. Additional gel pad used anterior pelvis. Gel pad under bottom leg from knee to foot and secured with tape over sheet.
[2022-08-12] MEDS: BUPIVACAINE 0.5% W/ EPI (PF) 30 ML VIAL INJ (15:13)
[2022-08-12] MEDS: BUPIVACAINE LIPOSOME 266 MG/20 ML VIAL INJ (15:14)
--- NOTE | 2022-08-12 17:08 | SUR.PHASEI ---
Dr. Orosco made aware of bladder scanner of 470cc. No feeling/sensation from hips down. Orders received.
--- NOTE | 2022-08-12 17:37 | SUR.PHASEI ---
To 212. with Walker, suitcase and belonging bag.
[2022-08-12] MEDS: LACTATED RINGERS 1,000 ML 125 ML IV (18:42)
[2022-08-12] MEDS: OXYCODONE IR 5 MG TABLET PO ×2 (18:45→21:56)
[2022-08-12] MEDS: ACETAMINOPHEN 325 MG TABLET 650 MG PO ×2 (18:45→23:54)
[2022-08-12] MEDS: AMLODIPINE 5 MG TABLET PO (20:14)
[2022-08-12] MEDS: LOSARTAN 50 MG TABLET PO (20:14)
[2022-08-12] MEDS: DOCUSATE 100 MG CAPSULE PO (20:14)
[2022-08-12] MEDS: ASPIRIN EC 81 MG TABLET PO (20:14)
[2022-08-12] MEDS: AMITRIPTYLINE 25 MG TABLET 50 MG PO (20:14)
[2022-08-12] MEDS: PANTOPRAZOLE DR 20 MG TABLET PO (20:15)
[2022-08-12] MEDS: MONTELUKAST 10 MG TABLET PO (20:15)
[2022-08-12] MEDS: ROPINIROLE 1 MG TABLET 3 MG PO (20:15)
[2022-08-12] MEDS: GABAPENTIN 600 MG TABLET PO (22:14)
--- NOTE | 2022-08-12 22:27 | PC.NURSE ---
Patient is alert and oriented. Conversing about home situation (spouse is not supportive with helping out after prior hip surgeries and patient considering leaving him) and became tearful. Breath sounds CTA with RA sat of 94%. HRR but BP elevated at 160/61. Denies nausea. BT present but has not yet passed flatus. Had in/out cath in PACU and has not yet voided since return to room. Is able to move self but needs assistance to make major adjustments. Aquacel dressing to left hip is CDI. Wearing bilateral calf SCD's. Medicated with oxycodone for pain with good relief verbalized. Fall risk score is high and bed alarm is activated.
[2022-08-13] VITALS (8 sets, daily range): BP systolic 108–153; BP diastolic 54–65; PULSE 66–81; RESP 16–20; TEMP 36.6–37.2; O2SAT 93–96
[2022-08-13] MEDS: OXYCODONE IR 5 MG TABLET PO ×5 (01:13→19:55)
[2022-08-13] MEDS: LACTATED RINGERS 1,000 ML 125 ML IV (03:47)
[2022-08-13] MEDS: ACETAMINOPHEN 325 MG TABLET 650 MG PO ×3 (05:38→17:21)
[2022-08-13] MEDS: GABAPENTIN 600 MG TABLET PO ×2 (05:38→12:15)
[2022-08-13] MEDS: CEFAZOLIN 2 GM/100 ML PREMIX 100 ML IV (05:39)
[2022-08-13] MEDS: BUDESONIDE 0.5 MG/2 ML NEB INH ×2 (06:01→19:42)
[2022-08-13] MEDS: ALBUTEROL 2.5 MG/3 ML NEB (ADULT) INH (06:01)
--- NOTE | 2022-08-13 06:37 | P.PN_ITS ---
Subjective Subjective Date Patient Seen: 08/13/22 Time Patient Seen: 06:37 Interval history: Pt sitting up in bed, comfortable. Eating and voiding without difficulty. Very concerned about physical limitations following surgery. She has several animals at home that she needs to care for, as well as her , who weighs over 400 pounds and is only minimally ambulatory. Exam Vital Signs (past 8 hours): - 08/13/22 00:28 08/13/22 04:00 Temperature 97.8 F 97.9 F Pulse Rate 76 66 Respiratory Rate 20 17 Blood Pressure 109/63 121/56 L Pulse Oximetry 95 95 Oxygen Flow Rate 0 0 Oxygen Delivery Method Room Air Oxygen Flow Rate 0 Narrative Exam Narrative: 4/5 hip flexors, quadriceps, hamstrings; 5/5 DF, PF, EHL on left. Sensation to light touch intact throughout LLE. Calf soft, compressible, nontender and without palpable cords or masses. Aquacel dressing CDI. [facility] Medical History (Updated 08/13/22 @ 06:40 by Shantal Woo PA-C) Abrasion (02/25/21) Acute on chronic respiratory failure Adrenal insufficiency Anxiety Asthma Chronic pain disorder COVID-19 virus infection Depression Dislocation, hip Easy bruisability Elevated coronary artery calcium score Fibromyalgia Frequent falls GERD (gastroesophageal reflux disease) HTN (hypertension) Hyperlipidemia Hypoxemia ILD (interstitial lung disease) Osteoarthritis Pneumonia RBBB (right bundle branch block) Sarcoid neuropathy Sarcoidosis Surgical History H/O total hip arthroplasty (04/21/17) History of bunionectomy of left great toe (10/2015) History of hysterectomy History of lung biopsy History of total left hip replacement (02/28/21) Hx of cardiac cath Hx of tonsillectomy Family History Mother COPD (chronic obstructive pulmonary disease) Cancer Hypertension Father Aneurysm Asthma Social History household members: spouse and children occupational status: other (Retired) Smoking Status: Never smoker alcohol intake: current Assessment & Plan Post-op Assessment and plan (1) Dislocation, hip: Assessment and Plan narrative: At surgery yesterday, a rent in the anterior capsule was repaired and the femoral head was replaced. Pt to be maintained on anterior and posterior hip precautions and will require multiple sessions of inpt PT to work on these limitations and appropriate restrictions for homegoing. ASA 81 mg BID x 6 weeks for VTE prophylaxis. Good pain control w/ oxycodone. Will follow for cultures and treat as appropriate. Anticipate d/c home tomorrow pending work w/ PT today. (2) H/O total hip arthroplasty: Postoperative Procedures: Procedures Operation Date: 08/12/22 10:45 Actual Procedure Side Surgeon p Total Hip Arthroplasty Revision, femoral head component, posterior approach Left Cristina Orosco MD Postoperative day: 1 Quality VTE Deep Vein Thrombosis/Pulmonary Embolism Present on Admission: No
[2022-08-13 07:10] LABS: Hematocrit 34.2 % (36-46); Hemoglobin 11.3 g/dL (12.0-16.0)
[2022-08-13] MEDS: LOSARTAN 50 MG TABLET PO ×2 (08:04→20:38)
[2022-08-13] MEDS: DOCUSATE 100 MG CAPSULE PO ×2 (08:04→20:40)
[2022-08-13] MEDS: predniSONE 5 MG TABLET 10 MG PO (08:04)
[2022-08-13] MEDS: AMLODIPINE 5 MG TABLET PO ×2 (08:04→20:37)
[2022-08-13] MEDS: MONTELUKAST 10 MG TABLET PO ×2 (08:04→20:39)
[2022-08-13] MEDS: HYDROXYCHLOROQUINE 200 MG TABLET 400 MG PO (08:04)
[2022-08-13] MEDS: ASPIRIN EC 81 MG TABLET PO ×2 (08:04→20:37)
[2022-08-13] MEDS: FOLIC ACID 1 MG TABLET PO (08:04)
[2022-08-13] MEDS: PANTOPRAZOLE DR 20 MG TABLET PO ×2 (08:05→20:39)
[2022-08-13] MEDS: SODIUM CHLORIDE 0.9% FLUSH 10 ML IV ×2 (08:05→19:53)
--- NOTE | 2022-08-13 08:55 | PT.IIE ---
Current Diagnoses Unspecified dislocation of unspecified hip, initial encounter (08/12/22) Unspecified complication of internal orthopedic prosthetic device, implant and graft, initial encounter (08/12/22) Presence of left artificial hip joint (08/12/22) Presence of unspecified artificial hip joint (08/12/22) Surgery Performed Operation Date: 08/12/22 10:45 Actual Procedures p Total Hip Arthroplasty Revision, femoral head component, posterior approach(Left) - Cristina Orosco MD Surgical History (Last Reviewed 08/12/22 @ 11:50 by Cheryl De Leon RN) H/O total hip arthroplasty (04/21/17) History of bunionectomy of left great toe (10/2015) History of hysterectomy History of lung biopsy History of total left hip replacement (02/28/21) Hx of cardiac cath Hx of tonsillectomy Medical History (Last Updated 08/13/22 @ 06:40 by Shantal Woo PA-C) Abrasion (02/25/21) Acute on chronic respiratory failure Adrenal insufficiency Anxiety Asthma Chronic pain disorder COVID-19 virus infection Depression Dislocation, hip Easy bruisability Elevated coronary artery calcium score Fibromyalgia Frequent falls GERD (gastroesophageal reflux disease) HTN (hypertension) Hyperlipidemia Hypoxemia ILD (interstitial lung disease) Osteoarthritis Pneumonia RBBB (right bundle branch block) Sarcoid neuropathy Sarcoidosis Physical Therapy Inpatient Evaluation/Re-Eval M1 PT/OT-IP Prior Functional Status Start: 08/13/22 13:15 Freq: NEEDED Status: Active Protocol: Document 08/13/22 08:55 AB (Rec: 08/13/22 13:34 AB [id number]) Medical Review Prior Functional Status Medical History Reviewed Yes Communication able to make needs known Mobility and Gait pt stated that she is modified independent with all mobilities and ambulation without AD but occasionally uses a FWW depending on back pain. Prior Functional Level (Other details) pt with h/o L anterior YUNIOR and has h/o 3 dislocations per EMR and now admitted for L YUNIOR revision with posterior precautions but also had an anterior capsule repair. Pt currently has both posterior and anterior hip precautions on the L Social History Household Members spouse Living Arrangements House Number of Floors (Floors) One Floor Number of Stairs To Enter/Railing? 2 steps R rail ascending to enter the house Home Environment High Toilet,Walk in Shower,Tub /Shower,Built-In Shower Seat Home Equipment Front Wheel Walker,Hand Held Shower Additional Social History Comment pt stated that spouse is disabled and will not be able to assist her M2 PT-IP Current Condition Start: 08/13/22 13:15 Freq: NEEDED Status: Active Protocol: Document 08/13/22 08:55 AB (Rec: 08/13/22 13:34 AB [email or web address]) Physical Therapy Current Condition Current Condition Evaluation Date 08/13/22 Treatment Diagnosis s/p L YUNIOR revision; difficulty in walking Onset Date 08/12/22 M3 PT-IP Subjective Start: 08/13/22 13:15 Freq: NEEDED Status: Active Protocol: Document 08/13/22 08:55 AB (Rec: 08/13/22 13:34 AB [id number]) Subjective Physical Therapy Visit Type Type Initial Evaluation Visit Start Time 08:55 Visit Stop Time 09:58 Total Visit Minutes 63 Number of INSERT CUTTER Visits 0 Physical Therapy Visit Comments Patient Comments agreeable to do PT Therapy Pain Assessment Pain When Pain Assessed At Rest Pain Present Pain Present Pain Reported Location Left Hip Intensity 4 Scale Used Numeric (0 - 10) Pain Behaviors Guarding Pain Management Techniques Apply Cold,Modification of Treatment,Re-positioning, Timing of Activity with Medications M4 PT-IP Mobility and Gait Start: 08/13/22 13:15 Freq: NEEDED Status: Active Protocol: Document 08/13/22 08:55 AB (Rec: 08/13/22 13:34 AB [id number]) PT-Bed Mobility Assessment Supine to Sit Supine to Sit Standby Assistance PT-Transfer Assessment Sit to and From Stand Sit to and from Stand Minimal Assistance,1 Person Assistance,Use of Upper Extremities Equipment Transfer Assistive Device Gait Belt,Front Wheeled Walker Orthotic/Prosthetic Devices or Brace: No Transfers Transfer Destination Chair Transfer Technique ambulated Transfer Ability Level of Assist Minimal Assistance,1 Person Assistance,Use of Upper Extremities Comments Mobility Comments educated pt regarding anterior and posterior hip precautions . Pt gets anxious easily and requires cues with all tasks. Pt stated that her mind just goes blank and does not remember any of her precautions. pt completed supine to sit SBA and max cues. able to sit on EOB SBA. needs constant reminder of her precautions as pt is restless and will just twist or cross her LE. max cues requires for all tasks. completed sit to stand min A and max cues and pt ambulated to the chair min A using FWW ~ 12 ft. pt rested and agreed to ambulate more. completed sit to stand from the chair min A and max cues and ambulated in room ~ 40 ft using FWW min A and max cues. pt agreed to stay up on the chair. positioned on the chair . call light and table placed within reach. Gait Assessment Gait Gait Assistance Required: Minimum Assistance,1 Person Assist Distance (Feet) 40 Able to Maintain Weight Bearing Status Yes During Gait Assistive Devices Assistive Device Gait Belt,Front Wheeled Walker Orthotic/Prosthetic Devices or Brace: No Gait Deviations General Gait Pattern Decreased Stride Length, Decreased Feet Clearance Factors Limiting Gait Function Factors Limiting Gait Function Decreased Activity Tolerance, Decreased Strength,Difficulty Following Directions,Limited Range of Motion,Pain,Poor Balance,Poor Safety Awareness PT-Balance Assessment Sitting Balance and Reactions Static Sitting Balance Ability Good Dynamic Sitting Balance Ability Fair Standing Balance and Reactions Static Standing Balance Ability Fair Dynamic Standing Balance Ability Fair Device Used FWW M5 PT-IP Objective Assessments Start: 08/13/22 13:15 Freq: NEEDED Status: Active Protocol: Document 08/13/22 08:55 AB (Rec: 08/13/22 13:34 AB [id number]) Orientation Orientation/Cognition Level of Alertness Alert Orientation Name,Place,Situation Language Function Ability No Deficits Noted Safety Awareness Decreased Safety Awareness Memory Description Short Term Impaired,Custodial Impaired Gross Range of Motion Lower Extremity ROM Assessment Within Functional Limits Strength Lower Extremity Strength Assessment Left Impaired Hip 3+/5 Knee 4-/5 Sensation Assessment Sensation Gross Sensation WNL Muscle Tone Muscle Tone WNL Yes M6 PT-IP Treatment Start: 08/13/22 13:15 Freq: NEEDED Status: Active Protocol: Document 08/13/22 08:55 AB (Rec: 08/13/22 13:34 AB [email or web address]) Physical Therapy Treatment Education Education Provided Precautions,Weight Bearing Status,Post-Op Packet,Safety M7 PT-IP Assessment and Plan Start: 08/13/22 13:15 Freq: NEEDED Status: Active Protocol: Document 08/13/22 08:55 AB (Rec: 08/13/22 13:34 AB [email or web address]) PT Summary Assessment and Plan Potential Rehabilitation Potential Fair Status of Condition at Evaluation Evolving Summary Impairments Pain,ROM,Strength,Balance, Coordination,Sensation,Tone, Cognition,Bed Mobility, Transfers,Gait,Activity Tolerance Assessment Summary pt with h/o L anterior hip replacement but with dislocations x 3 and now underwent YUNIOR revision posterior approach. pt also underwent an anterior capsule repair and currently has bother posterior and anterior hip precautions. pt has no assistance at home. pt requires min A with mobility using FWW but max cues with all tasks for safety. pt gets anxious easily and has memory issues and unable to adhere to her hip precautions and needing max cues. pt will require SNF rehab to improve overall mobility and safety awareness. Goals Bed Mobility Goal Standby Assistance Transfer Goal Standby Assistance,Front Wheeled Walker Gait Goal Standby Assistance,Front Wheel Walker Gait Distance 200 Other Goals up/down 2 steps R rail ascending SBA Days to Meet Goals 10 Frequency of Treatment Frequency Of Treatment Twice a Day Treatment Plan Physical Therapy Treatment Plan Bed Mobility Training,Transfer Training,Gait Training, Therapeutic Exercise,Balance Retraining,Post Op Education, Discharge Planning,Hot or Cold Pack,Neuromuscular Re-ed, Coordination Retraining,Manual Therapy Precautions Posterior Hip Precautions No Hip Flexion > 90 degrees,No Hip Internal Rotation,No Hip Adduction Anterior Hip Precautions No Hip Extension,No Hip External Rotation Weight Bearing Status Weight Bearing Status Weight Bear as Tolerated Allowed Weight Bearing Amount (enter % LLE WBAT or #) (%) Recommendations To Nursing Amount of Assist Needed 1 Person Assist Discharge Recommendations PT Discharge Recommendations SNF Rehab Transportation Needs at Discharge Wheelchair/Cabulance
--- NOTE | 2022-08-13 11:23 | CM.DANOTE ---
Addendum entered by Odilia Pryor R.N. 08/13/22 14:36: DCP continued: CM called Theresa at [facility] who is reviewing patient for SNF authorization, Faxed off PT, OT notes, H&P and Facesheet for there review. CM team will follow up with [facility] about SNF auth. CM called [facility] to check on SNF bed, Leigh [facility] is reviewing, will need single case agreement if they accept, Called [facility], Called Jacqu[place] [facility] [place] currently reviewing and will get back to CM soon, CM called [facility] and [facility]. CM will follow up with SNF locations to determine an accepting facility and will follow up with [facility] to get SNF authorization. PASRR completed. Jeannine Orosco RNrepairer engine production Original Note: DCP: Case received EMR reviewed, this repairer engine production introduced self to patient and was able to obtain information regarding pt's baseline activity prior to hospitalization, as well as current living situation. DCP's assessment completed with information currently available. Pt admitted on 08/12/2022 for planned Left Hip Arthroplasty under the care of Orthopedic Surgeon. PCP: Chrissy Looney Payor: [facility]; [facility] This CM met with pt at bedside, pt expressed concern with going home right at discharge due to being primary caregiver of her who she does not feel that she can care for while she is recovering and healing after surgery. Pt expressed interest in going to a SNF to support with care while healing. CM team will work on getting [facility] Auth for SNF. Meanwhile, [facility] is sending out SNF referrals to [facility] and [facility]. Passr will be completed. OT ordered and pending PT eval. P: Plan A, SNF under [facility], Plan B is home with [facility] or [facility]. Discharge Planning/Care Management CM Discharge Assessment Start: 08/13/22 11:18 Freq: Status: Active Protocol: Document 08/13/22 11:19 JAZIEL (Rec: 08/13/22 11:23 JAZIEL [id number]) Discharge Planning Assessment Assigned Em Physician Odilia Pryor RN Case Manager Advance Directives? No History Provided By Patient Has Patient been admitted in last 30 No days? Prior Living Arrangements House Household Members spouse,children Type of transporation used prior to Drives own vehicle admit Independent with ADL's Yes Is patient alert and oriented? 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 Discharge Plan Intermediate Facility Transportation Arrangement Pending discharge plan Referrals Initiated Intermediate If patient plan is SNF: Has PASSR been No completed? Has Agency SNF been contacted Yes Whiteboard Updated in Patient Room with Yes name and ext. # of Em Physician Review Status In Process Next Review Type Continued Stay Review Pre-Anesthesia Assessment Start: 08/07/22 12:20 Freq: Status: Complete Protocol: Document 08/07/22 12:20 CAB (Rec: 08/07/22 13:07 CAB [id number]) Pre-Anesthesia Assessment Patient Information Reviewed Via Chart Review Diagnostic Results EKG Comment Outside ECG only scanned, COVID screen not identified Primary Care Provider Chrissy Looney Medical Clearance Received Yes Seen Specialist in Last 12 Months Yes Specialist Seen Orthopedist,Transition Lead Comment PCP clearance 07/18/22, Pulomary pre-op 07/25/22 & clearance form scanned Primary Language Malay Preferred Language Malay Category Specialist Required No Height 160.02 cm Weight 67.132 kg Body Mass Index (BMI) 26.2 Hearing Ability Normal Visual Assist Glasses Dentition Type Teeth, Natural Present Barriers to Learning None Hx Anesthesia Reactions No Hx Family Anesthesia Reaction Yes: Sisters PONV Hx Malignant Hyperthermia No Hx Blood Transfusions No Hx Blood Transfusion Reaction No Anesthesia Review Requested Yes: Surgeon requested re: Pulmonary Patternmaker Metal No alcohol intake current alcohol intake frequency 0-2 drinks per day Smoking Status Never smoker Substance Use Type does not use Pain Present Pain Reported Musculoskeletal Symptoms Abnormal Gait,Back Pain, Difficulty Walking,Joint Pain History of Falling (Recent or History of Yes ) Patient is completely paralyzed or Yes completely immobile Mental Status Oriented to own ability Comment Balance issues Is patient on oxygen? Yes: Current unkown, hx of recent use Does patient have OBRIEN/SOB Yes: OBRIEN, Sarcoidosis Hx Sleep Apnea No CPAP/BIPAP use not prescribed Currently Taking a Beta Lydia No Can You Climb a Flight of Stairs Without No SOB Hx Chest Pain No Hx SOB Yes Hx Syncope or Dizziness Yes: I'm dizzy all the time Anti-Coagulant Therapy No Has a Coarse Wire Drawer Yes Coarse Wire Drawer name Has seen Dr. Ho in the past , unsure if still following w/ cardiology Hx Pacemaker/ICD No Pacemaker Rep Required? No Diet Type At Home Regular Dysphagia No Gastrointestinal Symptoms Constipation,Reflux Bladder Pattern Incontinent, Stress Urinary Catheter Present No Hx Urinary Self Catheterization No Diabetes No Patient No Lactating No Presence of External or Internal Medical Yes: Bilat hip prosthesis Devices Received a COVID vaccine? Yes Comment Pt has a history of COVID, date unknown-respiratory hypoxia Marital Status -lives separately last identified Lives With children Patient Discharge Plan Description Return Home Do You Have Any Spiritual Beliefs That No May Affect Your HC Choices? Do You Have Any Cultural Practices That No May Affect Your HC Choices? Emergency Contact Name El () Emergency Contact Advance Directives? No Power of Firmware Developer No
--- NOTE | 2022-08-13 13:38 | OT.IP.EVAL ---
Current Diagnoses Unspecified dislocation of unspecified hip, initial encounter (08/12/22) Unspecified complication of internal orthopedic prosthetic device, implant and graft, initial encounter (08/12/22) Presence of left artificial hip joint (08/12/22) Presence of unspecified artificial hip joint (08/12/22) Surgery Performed Operation Date: 08/12/22 10:45 Actual Procedures p Total Hip Arthroplasty Revision, femoral head component, posterior approach(Left) - Cristina Orosco MD Past Medical History (Last Updated 08/13/22 @ 06:40 by Shantal Woo PA-C) Abrasion (02/25/21) Acute on chronic respiratory failure Adrenal insufficiency Anxiety Asthma Chronic pain disorder COVID-19 virus infection Depression Dislocation, hip Easy bruisability Elevated coronary artery calcium score Fibromyalgia Frequent falls GERD (gastroesophageal reflux disease) HTN (hypertension) Hyperlipidemia Hypoxemia ILD (interstitial lung disease) Osteoarthritis Pneumonia RBBB (right bundle branch block) Sarcoid neuropathy Sarcoidosis Surgical History (Last Reviewed 08/12/22 @ 11:50 by Cheryl De Leon RN) H/O total hip arthroplasty (04/21/17) History of bunionectomy of left great toe (10/2015) History of hysterectomy History of lung biopsy History of total left hip replacement (02/28/21) Hx of cardiac cath Hx of tonsillectomy Occupational Therapy Inpatient Evaluation/Re-Eval M1 PT/OT-IP Prior Functional Status Start: 08/13/22 13:15 Freq: NEEDED Status: Active Protocol: Document 08/13/22 13:04 [facility] (Rec: 08/13/22 14:16 [facility] [id number]) Medical Review Prior Functional Status Medical History Reviewed Yes Communication able to make needs known Mobility and Gait pt stated that she is modified independent with all mobilities and ambulation without AD but occasionally uses a FWW depending on back pain. Activities of Daily Living and IADL's Pt states able to do ADL's, takes care of her , and animals. Prior Functional Level (Other details) pt with h/o L anterior YUNIOR and has h/o 3 dislocations per EMR and now admitted for L YUNIOR revision with posterior precautions but also had an anterior capsule repair. Pt currently has both posterior and anterior hip precautions on the L Social History Household Members spouse,children Living Arrangements House Number of Stairs To Enter/Railing? 2 steps R rail ascending to enter the house Home Environment High Toilet,Walk in Shower,Tub /Shower,Built-In Shower Seat Home Equipment Front Wheel Walker,Hand Held Shower Additional Social History Comment pt stated that spouse is disabled and will not be able to assist her Pt's son able to come and help at night after he works. M2 OT-IP Current Condition Start: 08/13/22 13:42 Freq: Status: Active Protocol: Document 08/13/22 13:04 [facility] (Rec: 08/13/22 14:16 [facility] [id number]) Occupational Therapy Current Condition Current Condition Evaluation Date 08/13/22 Treatment Diagnosis S/P L YUNIOR revision Diagnosis Onset Date 08/12/22 Post Operative Precautions Posterior Hip Precautions No Hip Flexion > 90 degrees,No Hip Internal Rotation,No Hip Adduction Anterior Hip Precautions No Hip Extension,No Hip External Rotation Other Precautions Pt has both anterior and posterior precautions to follow. M3 OT- IP Subjective and Pain Start: 08/13/22 13:42 Freq: Status: Active Protocol: Document 08/13/22 13:04 [facility] (Rec: 08/13/22 14:16 [facility] [id number]) OT- Subjective Occupational Therapy Visit Type Type Initial Evaluation Visit Start Time 13:04 Visit Stop Time 13:38 Total Visit Minutes 34 Occupational Therapy Visit Comments Patient Comments Pt agreed to do OT eval. Pt is very tearful and wanting to go to skilled rehab. Patient/Caregiver Goals TO get stronger first before going home. OT Pain Assessment Pain When Pain Assessed During Mobility Pain Present Pain Present Pain Reported Location Left Hip Intensity 7 Scale Used Numeric (0 - 10) M4 OT- IP ADL's Start: 08/13/22 13:42 Freq: Status: Active Protocol: Document 08/13/22 13:04 [facility] (Rec: 08/13/22 14:16 [facility] [id number]) OT [id number] Comments OT Self-Feeding Comments Not at meal time. OT ADL-Grooming Comments OT Grooming Comments Not performed. OT ADL-Oral Care Comments Oral Care Comments Not performed but educated to be mindful of her LLE position when doing grooming and oral care needs. OT ADL-Dressing General Eval Lower Body Dressing Ability Maximum Assistance Comments OT Dressing Comments At this time pt needing assist to alphonso her shoes. Pt educated and able to practice with spa assistant manager and socks aid for LB dressing needs. Pt will benefit form continued practice as pt get anxious and then becomes forgetful of her hip precautions. OT ADL-Toileting General Evaluation Toileting Ability Moderate Assistance Areas Needing Assistance Manage Clothing,Perform Perineal Hygiene Comments OT Toileting Comments Pt needing to be mindful not to lower her underwear too low and be sure to bring her LLE forwards before sitting down. Pt able to wipe after urinating while standing and will benefit from assist after a bowel movement or by obtaining a toilet paper aid or bidet in addition to using wipes. Pt insists that she will just take a shower and does not want to have anyone assist her for hygiene needs. OT ADL-Bathing Comments OT Bathing Comments Not performed, pt will require assist however her is disabled. Use of her walk in shower would be best and pt feels that the current shower chair may be unsafe. Pointed out the equipment list of places to contact for equipiment needs. M5 OT- IP IADL's Start: 08/13/22 13:42 Freq: Status: Active Protocol: Document 08/13/22 13:04 [facility] (Rec: 08/13/22 14:16 [facility] [id number]) OT-Instrumental Activities of Daily Living Deficits IADL Deficits Identified Deficits Home Safety Awareness Awareness of Need for Assistance at Home Good Awareness Ability to Problem Solve Emergency Able to Problem Solve Situations Home Safety Comments Pt is a bit anxious and therefore tends to be forgetful of her hip precautions and needing reminders to follow them. Pt will needs assist for ADl needs and especially for her IADL needs. Pt will be a high fall and high risk for dislocation if having to go home to take care of herself, , and animals. Asking pt to think on any friends or other people to help support here. M6 OT- IP Functional Cognition Start: 08/13/22 13:42 Freq: Status: Active Protocol: Document 08/13/22 13:04 [facility] (Rec: 08/13/22 14:16 [facility] [id number]) Cognitive Factors Limiting Selfcare Function Cognitive Ability Level of Alertness Alert Patient Orientation Name,Place,Situation Attention Span Ability Capable of Focused Attention, Unable to Focus Ability to Follow Commands Able to Follow One Step Commands with Increased Time, Able to Follow One Step Commands with Repetition Memory Description Short Term Impaired,Working Impaired Safety Awareness Decreased Recall of Precautions,Decreased Ability to Apply Precautions Problem Solving Ability Needs Assist to Identify Solutions Cognitive Comments Cognitive Assessment Comments Pt having difficulty to recall and incorporate her hip precautions during ADL and mobility needs. At times pt needing MAXA cues to follow. OT- Vision and Hearing OT- Hearing Assessment OT- Hearing Assessment WFL OT- Vision Assessment Visual Acuity Glasses All The Time M7 OT- IP Mobility and Balance Start: 08/13/22 13:42 Freq: Status: Active Protocol: Document 08/13/22 13:04 [facility] (Rec: 08/13/22 14:16 [facility] [id number]) OT-Transfer Assessment Sit to and From Stand Sit to and from Stand Minimal Assistance,Moderate Assistance Transfers Transfer Ability Minimal Assistance Technique Transfer Destination Chair,Toilet Devices Transfer Assistive Devices Gait Belt,Front Wheeled Walker Comments Mobility Comments Pt needing from ALYSSA to MODA to stand especially from lower surfaces. MOD vc to remember to slide her left foot forwards prior to standing and sitting down. Pt able to walk with ALYSSA with the FWW. OT- Balance Assessment Sitting Balance and Reactions Static Sitting Balance Ability Good Dynamic Sitting Balance Ability Fair Standing Balance and Reactions Static Standing Balance Ability Fair Dynamic Standing Balance Ability Fair M8 OT- IP Objective Assessments Start: 08/13/22 13:42 Freq: Status: Active Protocol: Document 08/13/22 13:04 [facility] (Rec: 08/13/22 14:16 [facility] [id number]) OT Gross Range of Motion Upper Extremity Range of Motion Assessment Within Functional Limits OT Strength Upper Extremity Strength Assessment Within Functional Limits M9 OT- IP Assessment and Plan Start: 08/13/22 13:42 Freq: Status: Active Protocol: Document 08/13/22 13:04 [facility] (Rec: 08/13/22 14:16 [facility] [id number]) OT Summary Assessment and Plan Potential Rehabilitation Potential Good Analytic Complexity at Evaluation Moderate Summary OT Impairments Pain,Strength,Balance, Functional Cognition, Functional Mobility,Dressing, Toileting,Bathing,Toilet Transfers,Shower Transfers, Activity Tolerance Progress Towards Goals Slow Progress due to Pain,Slow Progress due to Medical Issues,Slow Progress due to Activity Tolerance,Slow Progress due to Cognition Assessment Summary Pt MOD complexity and main barriers are pain, steps, and having to follow anterior and posterior precautions at the same time for all ADL and mobility needs. Pt states is overwhelmed as prior having to take care of her disabled and animals, now feels unable to care herself due to all the hip precautions and limitation for LLE hip movements. Pt would benefit from continued rehab and skilled rehab to go over her anterior and posterior precautions for ADL,IADl and mobility needs to help increased her overall safety and follow through of hip precautions. Goals Self-Feeding Goal Independent Grooming Goal Independent Dressing Goal Independent Toileting Goal Independent Bathing Goal Standby Assistance Toilet Transfer Goal Independent Shower Transfer Goal Standby Assistance Days to Meet Goals 20 Frequency of Treatment Frequency Of Treatment Once a Day Treatment Plan OT Treatment Plan ADL Training,Functional Cognition Training,Functional Mobility,Patient/Family Education,Discharge Planning Other Treatment Recommendations and Next shower and practice LB Treatment Focus dressing equipment Discharge Recommendations OT Discharge Recommendations SNF Rehab Transportation Needs at Discharge Private Vehicle
--- NOTE | 2022-08-13 14:30 | PT.IPTN ---
Current Diagnoses Unspecified dislocation of unspecified hip, initial encounter (08/12/22) Unspecified complication of internal orthopedic prosthetic device, implant and graft, initial encounter (08/12/22) Presence of left artificial hip joint (08/12/22) Presence of unspecified artificial hip joint (08/12/22) Surgery Performed Operation Date: 08/12/22 10:45 Actual Procedures p Total Hip Arthroplasty Revision, femoral head component, posterior approach(Left) - Cristina Orosco MD Physical Therapy Treatment Note M2 PT-IP Current Condition Start: 08/13/22 13:15 Freq: NEEDED Status: Active Protocol: Document 08/13/22 08:55 AB (Rec: 08/13/22 13:34 AB [id number]) Physical Therapy Current Condition Current Condition Evaluation Date 08/13/22 Treatment Diagnosis s/p L YUNIOR revision; difficulty in walking Onset Date 08/12/22 M3 PT-IP Subjective Start: 08/13/22 13:15 Freq: NEEDED Status: Active Protocol: Document 08/13/22 14:10 TONYA (Rec: 08/13/22 14:30 LJ [id number]) Subjective Physical Therapy Visit Type Type Treatment Note Visit Start Time 13:34 Visit Stop Time 13:56 Total Visit Minutes 22 Physical Therapy Visit Comments Patient Comments agreeable to do PT Therapy Pain Assessment Pain When Pain Assessed At Rest Pain Present Pain Present Pain Reported Location Left Hip Intensity 4 Scale Used Numeric (0 - 10) Pain Behaviors Guarding Pain Management Techniques Apply Cold,Modification of Treatment,Re-positioning, Timing of Activity with Medications M4 PT-IP Mobility and Gait Start: 08/13/22 13:15 Freq: NEEDED Status: Active Protocol: Document 08/13/22 14:10 LJ (Rec: 08/13/22 14:30 LJ [id number]) PT-Bed Mobility Assessment Supine to Sit Supine to Sit Standby Assistance PT-Transfer Assessment Sit to and From Stand Sit to and from Stand Minimal Assistance,1 Person Assistance,Use of Upper Extremities Equipment Transfer Assistive Device Gait Belt,Front Wheeled Walker Orthotic/Prosthetic Devices or Brace: No Transfers Transfer Destination Bed Transfer Technique ambulated Transfer Ability Level of Assist Minimal Assistance,1 Person Assistance,Use of Upper Extremities Comments Mobility Comments Pt reminded of hip precautions but still requiring cues for thinking about and planning movement prior to initiating the movement. Pt is very anxious about nearly everything involving her situation. Pt stood from chair CGA pushing with UEs and cues to extend foot forward. She then ambulated with step-to gait pattern to other side of bed ~15'. Pt sat on bed and got confused as to how she should get her LEs on the bed and still maintain precautions . Therapist assisted with lifting legs simultaneosly onto bed Cristina. Pt able to scoot to head of bed SBA with cues to avoid flexing hip >90 degrees. Pillow placed between legs, ice pack applied to hip , and towel roll placed next to LLE to prevent ER of leg. Pt requested SCM placement which therapist applied. Pt given all needs within reach and left in bed with head elevated slightly. Gait Assessment Gait Gait Assistance Required: Minimum Assistance,1 Person Assist Distance (Feet) 15 Assistive Devices Assistive Device Gait Belt,Front Wheeled Walker Orthotic/Prosthetic Devices or Brace: No Gait Deviations General Gait Pattern Decreased Stride Length, Decreased Feet Clearance,Step- to Gait Factors Limiting Gait Function Factors Limiting Gait Function Decreased Activity Tolerance, Decreased Strength,Difficulty Following Directions,Limited Range of Motion,Pain,Poor Balance,Poor Safety Awareness Comments Gait Comments See mobility section PT-Balance Assessment Sitting Balance and Reactions Static Sitting Balance Ability Good Dynamic Sitting Balance Ability Fair Standing Balance and Reactions Static Standing Balance Ability Fair Dynamic Standing Balance Ability Fair Device Used FWW M5 PT-IP Objective Assessments Start: 08/13/22 13:15 Freq: NEEDED Status: Active Protocol: Document 08/13/22 08:55 AB (Rec: 08/13/22 13:34 AB [id number]) Orientation Orientation/Cognition Level of Alertness Alert Orientation Name,Place,Situation Language Function Ability No Deficits Noted Safety Awareness Decreased Safety Awareness Memory Description Short Term Impaired,Longterm Impaired Gross Range of Motion Lower Extremity ROM Assessment Within Functional Limits Strength Lower Extremity Strength Assessment Left Impaired Hip 3+/5 Knee 4-/5 Sensation Assessment Sensation Gross Sensation WNL Muscle Tone Muscle Tone WNL Yes M6 PT-IP Treatment Start: 08/13/22 13:15 Freq: NEEDED Status: Active Protocol: Document 08/13/22 14:10 LJ (Rec: 08/13/22 14:30 LJ [id number]) Physical Therapy Treatment Education Education Provided Precautions,Weight Bearing Status,Post-Op Packet,Safety M7 PT-IP Assessment and Plan Start: 08/13/22 13:15 Freq: NEEDED Status: Active Protocol: Document 08/13/22 14:10 TONYA (Rec: 08/13/22 14:30 TONYA [id number]) PT Summary Assessment and Plan Potential Rehabilitation Potential Fair Status of Condition at Evaluation Evolving Summary Impairments Pain,ROM,Strength,Balance, Coordination,Sensation,Tone, Cognition,Bed Mobility, Transfers,Gait,Activity Tolerance Assessment Summary Pt very anxious and forgetting precautions. Cristina for transfers, gait, and bed mobility Max cueing very often . Pt will reauire SNF rehab to progress mobility and internalize hip precautions for safety. Goals Bed Mobility Goal Standby Assistance Transfer Goal Standby Assistance,Front Wheeled Walker Gait Goal Standby Assistance,Front Wheel Walker Gait Distance 200 Other Goals up/down 2 steps R rail ascending SBA Days to Meet Goals 10 Frequency of Treatment Frequency Of Treatment Twice a Day Treatment Plan Physical Therapy Treatment Plan Bed Mobility Training,Transfer Training,Gait Training, Therapeutic Exercise,Balance Retraining,Post Op Education, Discharge Planning,Hot or Cold Pack,Neuromuscular Re-ed, Coordination Retraining,Manual Therapy Precautions Posterior Hip Precautions No Hip Flexion > 90 degrees,No Hip Internal Rotation,No Hip Adduction Anterior Hip Precautions No Hip Extension,No Hip External Rotation Weight Bearing Status Weight Bearing Status Weight Bear as Tolerated Allowed Weight Bearing Amount (enter % LLE WBAT or #) (%) Recommendations To Nursing Amount of Assist Needed 1 Person Assist Discharge Recommendations PT Discharge Recommendations SNF Rehab Transportation Needs at Discharge Wheelchair/Cabulance
[2022-08-13] MEDS: HYDROCORTISONE 100 MG/2 ML VIAL IV (19:52)
[2022-08-13] MEDS: AMITRIPTYLINE 25 MG TABLET 50 MG PO (20:37)
[2022-08-13] MEDS: GABAPENTIN 300 MG CAPSULE 900 MG PO (20:38)
[2022-08-13] MEDS: ROPINIROLE 1 MG TABLET 3 MG PO (20:39)
--- NOTE | 2022-08-14 00:17 | PC.NURSE ---
Patient is alert and oriented. Tearful when discussing discharge plan; upset because she states PT/OT are teaching her about limitations related to YUNIOR and Dr. Orosco is telling her something different. Allowed to vent and instructed to discuss further with MD or PA in the morning. Breath sounds CTA with RA sat of 94%. HRR. Denied nausea. BT present and is passing flatus. Denied dysuria, frequency or urgency with urination and voids large amounts urine each time she voids. Is able to move herself in bed. Up to bathroom with walker and 1 assist but can be wobbly. Aquacel dressing to left hip is intact with small spot of drainage noted. CMS intact bilaterally. Wearing bilateral calf SCD's when in bed. Complained of 6/10 pain in left hip and was medicated with oxycodone at 1955. Verbalized that she has been getting very little sleep due to steroids so not awakened for 0000 dose of Tylenol as currently asleep. Fall risk score is high and bed alarm is activated.
[2022-08-14] MEDS: HYDROCORTISONE 100 MG/2 ML VIAL IV ×3 (02:58→20:35)
[2022-08-14] MEDS: SODIUM CHLORIDE 0.9% FLUSH 10 ML IV ×3 (02:59→20:36)
[2022-08-14 03:04] VITALS: BP 126/70; PULSE 75; RESP 16; TEMP 35.5; O2SAT 95
[2022-08-14] MEDS: OXYCODONE IR 5 MG TABLET PO ×3 (04:21→20:45)
[2022-08-14] MEDS: ACETAMINOPHEN 325 MG TABLET 650 MG PO ×3 (05:40→17:48)
[2022-08-14] MEDS: GABAPENTIN 600 MG TABLET PO ×2 (05:40→11:35)
--- NOTE | 2022-08-14 07:37 | PM.PNPO.1 ---
Subjective Subjective Date Patient Seen: 08/14/22 Time Patient Seen: 07:38 Interval history: Pain is 6/10. No N/V, Fever or chills. Patient leaves alone. Exam Vital Signs (past 8 hours): - 08/14/22 03:04 Temperature 96 F L Pulse Rate 75 Respiratory Rate 16 Blood Pressure 126/70 Pulse Oximetry 95 Oxygen Flow Rate 0 Fraction of Inspired Oxygen 93 Oxygen Delivery Method Room Air Oxygen Flow Rate 0 Narrative Exam Narrative: NAD, Dressing CDI. Motor function intact right LE. Left foot drop. Const General: cooperative and comfortable Nutritional Appearance: average body habitus Resp Effort & Inspection: normal respiratory effort and able to speak in complete sentences Objective Labs Result Diagrams: 08/13/22 06:01 Labs: SPEC #: [id number] MARKELL: 08/12/22 STATUS: RES REQ #: [id number] SPDESC: RECD: 08/12/22-[address]: Cristina Orosco MD SOURCE: Hip Lt ENTR: 08/12/22-[address]: Chrissy Looney P.A-C FAX TO: ORDERED: WOUND Cx and GS COMMENTS: L HIP TISSUE #2 Comment tissue left hip culture sensitivity gram stain Procedure Result Verified Site Gram Stain Final 08/12/22 No Organism Seen No organisms seen White blood cells No WBC seen Epithelial cells Few (2-10) Aerobic Culture for wounds Preliminary 08/13/22-1021 No growth. Anaerobic Culture Pending [facility] Medical History Abrasion (02/25/21) Acute on chronic respiratory failure Adrenal insufficiency Anxiety Asthma Chronic pain disorder COVID-19 virus infection Depression Dislocation, hip Easy bruisability Elevated coronary artery calcium score Fibromyalgia Frequent falls GERD (gastroesophageal reflux disease) HTN (hypertension) Hyperlipidemia Hypoxemia ILD (interstitial lung disease) Osteoarthritis Pneumonia RBBB (right bundle branch block) Sarcoid neuropathy Sarcoidosis Surgical History H/O total hip arthroplasty (04/21/17) History of bunionectomy of left great toe (10/2015) History of hysterectomy History of lung biopsy History of total left hip replacement (02/28/21) Hx of cardiac cath Hx of tonsillectomy Family History Mother COPD (chronic obstructive pulmonary disease) Cancer Hypertension Father Aneurysm Asthma Social History household members: spouse and children occupational status: other (Retired) Smoking Status: Never smoker alcohol intake: current Assessment & Plan Post-op Postoperative Procedures: Procedures Operation Date: 08/12/22 10:45 Actual Procedure Side Surgeon p Total Hip Arthroplasty Revision, femoral head component, posterior approach Left Cristina Orosco MD Postoperative day: 2 Postoperative status: doing well Postoperative plan: routine post-op care Postoperative plan narrative: The patient will be maintained on a standard total hip replacement protocol with weight bearing as tolerated and anterior and posterior hip precautions. The patient will receive Aspirin and sequential compression devices for DVT prophylaxis. The patient will be discharged home when safe for the home environment. 1 person assist per PT Disposition: [facility] VTE Deep Vein Thrombosis/Pulmonary Embolism Present on Admission: No
[2022-08-14] MEDS: BUDESONIDE 0.5 MG/2 ML NEB INH ×2 (07:52→20:59)
[2022-08-14 07:53] VITALS: PULSE 82; RESP 18; O2SAT 95
[2022-08-14 08:05] VITALS: BP 121/63; PULSE 78; RESP 16; TEMP 36.7; O2SAT 97
[2022-08-14 08:29] VITALS: BP 121/63; PULSE 78
[2022-08-14] MEDS: polyethylene glycoL 3350 17 GM POWD.PACK PO (08:29)
[2022-08-14] MEDS: ASPIRIN EC 81 MG TABLET PO ×2 (08:29→20:35)
[2022-08-14] MEDS: LOSARTAN 50 MG TABLET PO ×2 (08:29→20:35)
[2022-08-14] MEDS: DOCUSATE 100 MG CAPSULE PO ×2 (08:29→20:32)
[2022-08-14] MEDS: FOLIC ACID 1 MG TABLET PO (08:29)
[2022-08-14] MEDS: MONTELUKAST 10 MG TABLET PO ×2 (08:29→20:34)
[2022-08-14] MEDS: HYDROXYCHLOROQUINE 200 MG TABLET 400 MG PO (08:29)
[2022-08-14] MEDS: PANTOPRAZOLE DR 20 MG TABLET PO ×2 (08:29→20:34)
[2022-08-14] MEDS: predniSONE 5 MG TABLET 10 MG PO (08:29)
[2022-08-14] MEDS: AMLODIPINE 5 MG TABLET PO ×2 (08:30→20:35)
[2022-08-14] MEDS: HYDROCODONE/ACET 5/325 TABLET 1 TAB PO (08:58)
--- NOTE | 2022-08-14 09:36 | PT.IPTN ---
Current Diagnoses Unspecified dislocation of unspecified hip, initial encounter (08/12/22) Unspecified complication of internal orthopedic prosthetic device, implant and graft, initial encounter (08/12/22) Presence of left artificial hip joint (08/12/22) Presence of unspecified artificial hip joint (08/12/22) Surgery Performed Operation Date: 08/12/22 10:45 Actual Procedures p Total Hip Arthroplasty Revision, femoral head component, posterior approach(Left) - Cristina Orosco MD Physical Therapy Treatment Note M2 PT-IP Current Condition Start: 08/13/22 13:15 Freq: NEEDED Status: Active Protocol: Document 08/14/22 09:11 SP (Rec: 08/14/22 14:43 SP [id number]) Physical Therapy Current Condition Current Condition Evaluation Date 08/13/22 Treatment Diagnosis s/p L YUNIOR revision; difficulty in walking Onset Date 08/12/22 M3 PT-IP Subjective Start: 08/13/22 13:15 Freq: NEEDED Status: Active Protocol: Document 08/14/22 09:11 SP (Rec: 08/14/22 14:43 SP [id number]) Subjective Physical Therapy Visit Type Type Treatment Note Visit Start Time 09:11 Visit Stop Time 09:36 Total Visit Minutes 25 Notes Vitals taken: Supine: BP 139/64 HR 84 SaO2 100% on RA Post mobility: BP 84/56 HR 95 Number of PATHOLOGY LABORATORY AIDES TEACHER Visits 1 Physical Therapy Visit Comments Patient Comments Pt agreeable to working with therapy. She states I am having a hard time remembering what my precautions are, I think if I go home I am going to be worried about helping my and taking of my dogs and will probably do things wrong. Patient Goals Wanting to get stronger before going home. Therapy Pain Assessment Pain When Pain Assessed During Mobility Pain Present Pain Present Pain Reported Location Left Hip Intensity 5 Scale Used Numeric (0 - 10) Pain Behaviors Facial Grimacing,Guarding, Restlessness Pain Management Techniques Distraction,Modification of Treatment,Re-positioning M4 PT-IP Mobility and Gait Start: 08/13/22 13:15 Freq: NEEDED Status: Active Protocol: Document 08/14/22 09:11 SP (Rec: 08/14/22 14:43 SP [id number]) PT-Bed Mobility Assessment Supine to Sit Supine to Sit Standby Assistance Scooting Scooting to Edge of Bed Standby Assistance,Contact Guard Assistance PT-Transfer Assessment Sit to and From Stand Sit to and from Stand Contact Guard Assistance, Minimal Assistance,1 Person Assistance,Use of Upper Extremities Equipment Transfer Assistive Device Gait Belt,Front Wheeled Walker Orthotic/Prosthetic Devices or Brace: No Transfers Transfer Destination Bed,Chair Transfer Technique ambulated w/ FWW Transfer Ability Level of Assist Contact Guard Assistance, Minimal Assistance,1 Person Assistance,Use of Upper Extremities Comments Mobility Comments Pt recalled has anterior and posterior hip precautions but stated I am having hard time remembering all my precautions . Missed do not cross legs and LLE extension during gait for safety. Pt impulsively sat up in bed heavy BUE on bed, cued maintain no >90 deg hip flexion (sitting forward further) SBA, scoot to EOB unsteady trunk/ heavy BUE while maintaining each LE small lateral scoots repositioning to EOB. Min A BUE support seated EOB. STS Min A safety cues to push with at least 1-2 UE from bed to come to standing and quad facilitation to improve stability, unsteady. Cued wt shift between BLEs pre mobility. Forward gait w/ FWW CGA/Min A step to patterning leading LLE to bench then pivot cued small steps to support maintain no IR/ ER of LLE precautions, pt's LLE knee buckled midstand during RLE repositioning Mod A to recover stability extra support. Pt returned to chair Mod WB BUE noted on FWW during LLE midstance phase gait. Cues for proximity to FWW and fully repositioning back with FWW lead retro RLE and reaching back to slow descend sit in chair. Assisted pt to recline in chair. Pt's LLE not steady enough to assess stairs at this time has to complete at home 2 into garage/4 into front door. 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 PATHOLOGY LABORATORY AIDES TEACHER recommending pm tx and SNF at this time. Gait Assessment Gait Gait Assistance Required: Minimum Assistance,Moderate Assistance,1 Person Assist Distance (Feet) 12 Able to Maintain Weight Bearing Status Yes During Gait Assistive Devices Assistive Device Gait Belt,Front Wheeled Walker Orthotic/Prosthetic Devices or Brace: No Gait Deviations General Gait Pattern Decreased Stride Length, Decreased Feet Clearance,Step- to Gait Factors Limiting Gait Function Factors Limiting Gait Function Decreased Activity Tolerance, Decreased Strength,Difficulty Following Directions,Limited Range of Motion,Pain,Poor Balance,Poor Safety Awareness Comments Gait Comments see mobility comments Stair Climbing Assessment Comments Stair Climbing Comments Unable to assess at this time, unsteady LLE during gait, buckled Mod A to recover. PT-Balance Assessment Sitting Balance and Reactions Static Sitting Balance Ability Fair Dynamic Sitting Balance Ability Fair Standing Balance and Reactions Static Standing Balance Ability Fair Dynamic Standing Balance Ability Poor M5 PT-IP Objective Assessments Start: 08/13/22 13:15 Freq: NEEDED Status: Active Protocol: Document 08/13/22 08:55 AB (Rec: 08/13/22 13:34 AB [id number]) Orientation Orientation/Cognition Level of Alertness Alert Orientation Name,Place,Situation Language Function Ability No Deficits Noted Safety Awareness Decreased Safety Awareness Memory Description Short Term Impaired,Prison Impaired Gross Range of Motion Lower Extremity ROM Assessment Within Functional Limits Strength Lower Extremity Strength Assessment Left Impaired Hip 3+/5 Knee 4-/5 Sensation Assessment Sensation Gross Sensation WNL Muscle Tone Muscle Tone WNL Yes M6 PT-IP Treatment Start: 08/13/22 13:15 Freq: NEEDED Status: Active Protocol: Document 08/14/22 09:11 SP (Rec: 08/14/22 14:43 SP [id number]) Physical Therapy Treatment Education Education Provided Precautions,Weight Bearing Status,Post-Op Packet,Safety Other Treatments Other Treatment Performed Pt recalled anterior/posterior hip precautions: no>90 deg, no hip IR or ER, pt missed no crossing legs and L hip extension and unable to remember with cuing. She was challenged remembering maintaining all with mobility. M7 PT-IP Assessment and Plan Start: 08/13/22 13:15 Freq: NEEDED Status: Active Protocol: Document 08/14/22 09:11 SP (Rec: 08/14/22 14:43 SP [id number]) PT Summary Assessment and Plan Potential Rehabilitation Potential Fair Status of Condition at Evaluation Evolving Summary Impairments Pain,ROM,Strength,Balance, Coordination,Sensation,Tone, Cognition,Bed Mobility, Transfers,Gait,Activity Tolerance Progress Towards Goals Slow Progress due to Pain,Slow Progress due to Activity Tolerance,Slow Progress - Other Assessment Summary Pt continues to be anxious, states has hard time remembering her precautions, impulsive getting out of bed quick trunk movements at time hip flexion >90 deg heavy BUE WB to mobilize self, cues for maintaining precautions not bend forward, no LLE IR/ER/ adduction. Min A initially STS w/ FWW and CG/ Min gait inroom 12 ft total, 1 LOB LLE buckled Mod A required for recovery. Unable to assess stairs due to unsteady LLE weakness midstance quad facilitaiton. Will continue to assess progress in pm. At this time recommending SNF due to no support at home to assist required and unableto complete stairs needs to enter home. Goals Bed Mobility Goal Standby Assistance Transfer Goal Standby Assistance,Front Wheeled Walker Gait Goal Standby Assistance,Front Wheel Walker Gait Distance 200 Other Goals up/down 2 steps R rail ascending SBA Days to Meet Goals 10 Frequency of Treatment Frequency Of Treatment Twice a Day Treatment Plan Physical Therapy Treatment Plan Bed Mobility Training,Transfer Training,Gait Training, Therapeutic Exercise,Balance Retraining,Post Op Education, Discharge Planning,Hot or Cold Pack,Neuromuscular Re-ed, Coordination Retraining,Manual Therapy Other Recommendations and Next Treatment Post op ex, recheck Focus precautions, safety techniques with transfers, gait further distance w/ FWW, stair mgt if safe and able. Precautions Posterior Hip Precautions No Hip Flexion > 90 degrees,No Hip Internal Rotation,No Hip Adduction Anterior Hip Precautions No Hip Extension,No Hip External Rotation Weight Bearing Status Weight Bearing Status Weight Bear as Tolerated Allowed Weight Bearing Amount (enter % LLE WBAT or #) (%) Recommendations To Nursing Amount of Assist Needed 1 Person Assist Discharge Recommendations PT Discharge Recommendations SNF Rehab Transportation Needs at Discharge Wheelchair/Cabulance
--- NOTE | 2022-08-14 10:57 | CM.DPC ---
DCP called Theresa Theodore at [facility] who stated they had not received faxed Clinicals for PT and OT. CM resent those this AM and will follow up with Theresa to make sure she received them. Cm called Jacqueline at [facility] who stated she can accept the patient today at 1:30pm as long as [facility] auth goes through and we have a negative covid swab. CM placed covid swab order and contacted CLAUDY Lehman to get DC orders started for the patient. Jeannine Stuart briquette maker
--- NOTE | 2022-08-14 11:05 | P.DS_ITS ---
History of Present Illness History of Present Illness Date Patient Seen: 08/14/22 Time Patient Seen: 11:06 Chief complaint: Hip pain Narrative: See progress note Discharge Providers Provider Date of admission: 08/12/22 08:33 Discharge Date: 08/14/22 Primary care physician: Chrissy Looney PA-C Consults: 08/07/22 13:07 Consult to Anesthesiology Routine Comment: Consulting Provider: Anesthesiologist Reason for consultation: Surgeon requested re: Pulmonary 08/12/22 13:16 Consult to Anesthesiology Routine Comment: Consulting Provider: Anesthesiologist Reason for consultation: Regional block for post operative pain control 08/12/22 18:22 Consult to Discharge Planning Routine Comment: Consult to Physical Therapy Evaluate & Treat Comment: Physician Instructions: post op YUNIOR protocol 08/13/22 11:37 Consult to Occupational Therapy Evaluate & Treat Comment: Physician Instructions: Evaluate and treat Discharge provider: Dominik Ibarra PA-C Summary Hospital Course Discharge Diagnosis: Left total hip arthroplasty with prior anterior approach with anterior instability and history of 3 dislocations, severe spinal stenosis with a prior history of a left foot drop, degenerative scoliosis, history of sarcoidosis Hospital Course: Left total hip revision posterior approach Same procedure as scheduled: Yes Indications: The patient has had a history of an anterior left total hip arthroplasty which was complicated by 3 anterior dislocations. Non-operative management has failed and the patient has requested revision total hip replacement. The risks, benefits and alternatives to surgery were discussed with the patient prior to proceeding. Risks discussed included, but were not limited to, failure to relieve pain, leg length discrepancy, dislocation, stiffness, infection, nerve damage, deep venous thrombosis, pulmonary embolism, stroke, coma, heart attack, permanent paralysis and , as well as the potential need for eventual revision of the prosthetic. Surgeon: Cristina Orosco Cash Management Clerk: Melissa Goode Anesthesia Type: Spinal Operative Notes Findings: Mild anterior instability.? Difficult to dislocate even with maximum hyperextension extension and maximum external rotation.? A rent in the anterior capsule and soft tissues in the anterior superior capsule.? Good stability with increased offset with a +0 head, adequate anterior capsule repair Closure Type: primary Specimen(s): other (Cultures) Prosthetic devices, grafts, tissues, transplants, or devices: Orosco and nephew 32 mm +0 Oxinium head Estimated Blood Loss (mL): 100 Blood products transfused: none Patient admitted for the above-mentioned procedure. Patient consented to the same. Patient taken operating room on August 12, 2022. Patient back in her room recovering well as in stable condition. Cultures pending. Patient will be discharged to residential facility today. Exam Vital Signs (past 8 hours): - 08/14/22 07:53 08/14/22 08:29 08/14/22 08:05 Temperature 98.1 F Pulse Rate 82 78 78 Respiratory Rate 18 16 Blood Pressure 121/63 121/63 Pulse Oximetry 95 97 Oxygen Flow Rate 0 Fraction of Inspired Oxygen 93 Oxygen Delivery Method Room Air Oxygen Flow Rate 0 Narrative Exam Narrative: See progress note Objective Labs Result Diagrams: 08/13/22 06:01 [facility] Medical History Abrasion (02/25/21) Acute on chronic respiratory failure Adrenal insufficiency Anxiety Asthma Chronic pain disorder COVID-19 virus infection Depression Dislocation, hip Easy bruisability Elevated coronary artery calcium score Fibromyalgia Frequent falls GERD (gastroesophageal reflux disease) HTN (hypertension) Hyperlipidemia Hypoxemia ILD (interstitial lung disease) Osteoarthritis Pneumonia RBBB (right bundle branch block) Sarcoid neuropathy Sarcoidosis Surgical History H/O total hip arthroplasty (04/21/17) History of bunionectomy of left great toe (10/2015) History of hysterectomy History of lung biopsy History of total left hip replacement (02/28/21) Hx of cardiac cath Hx of tonsillectomy Family History Mother COPD (chronic obstructive pulmonary disease) Cancer Hypertension Father Aneurysm Asthma Social History household members: spouse and children occupational status: other (Retired) Smoking Status: Never smoker alcohol intake: current Discharge Assessment & Plan Assessment and Plan Assessment: Patient progressing status post left total hip revision posterior approach Plan of Treatment: Multimodal pain management Weight-bearing as tolerated, anterior and posterior hip precautions Aspirin for DVT prophylaxis Waiting final culture results will treat appropriately once final. Discharge to residential facility today. Follow up with [facility] in 10-14 days. Discharge Plan Discharge Plan Patient Disposition: SNF Transfer to: [facility] Discharge orders & Medications Prescriptions: New aspirin 81 mg Tablet,Delayed Release (Dr/Ec) 81 mg PO BID Qty: 60 0RF oxycodone 5 mg Tablet 5 mg PO Q3HR PRN (Reason: Pain, Moderate (4-6)) Qty: 60 0RF Continued gabapentin [Neurontin] 600 MG tablet 600 mg PO SEEINSTR Qty: 0 Rx Instructions: 600mg qam, qnoon, 900mg hs cyclobenzaprine 10 MG tablet 10 mg PO TID PRN (Reason: Muscle Spasm) Qty: 0 hydroxychloroquine [Plaquenil] 200 MG tablet 400 mg PO QDAY Qty: 0 losartan 50 mg Tablet 50 mg PO BID ropinirole 3 mg Tablet 3 mg PO BEDTIME amlodipine 5 mg Tablet 5 mg PO BID amitriptyline 50 mg Tablet 50 mg PO BEDTIME naproxen sodium 220 mg Tablet 220 mg PO BID PRN (Reason: Pain) folic acid 1 mg Tablet 1 - 5 mg PO DAILY montelukast 10 mg Tablet 10 mg PO BID albuterol sulfate 90 mcg/actuation Hfa Aerosol Inhaler 2 puff INHALATION Q4-6H PRN (Reason: Shortness Of Breath) omeprazole 20 mg Tablet,Delayed Release (Dr/Ec) 20 mg PO BID ciclesonide 80 mcg/actuation Hfa Aerosol Inhaler 1 puff INHALATION BID acetaminophen 325 mg Tablet 650 mg PO TID Qty: 60 0RF polyethylene glycol 3350 17 gram Powder In Packet 17 gm PO DAILY PRN (Reason: Constipation) Qty: 10 0RF prednisone 10 mg tablet 10 mg PO DAILY Qty: 10 0RF methotrexate sodium 2.5 mg tablet 2.5 mg PO WEEKLY Label Comments: take 8 tablets by mouth EVERY WEEK Rx Instructions: 8 tablets weekly Discontinued aspirin 81 mg Tablet,Delayed Release (Dr/Ec) 81 mg PO BID Qty: 60 0RF oxycodone 5 mg Tablet 5 mg PO Q3HR PRN (Reason: Pain, Moderate (4-6)) Qty: 60 0RF Rx Instructions: 1-3 tablets p.o. every 3 hours as needed for pain hydrocodone-acetaminophen 5-325 mg tablet 1 tab PO Q6H PRN (Reason: pain) Qty: 10 0RF Follow up/Referrals: Cristina Orosco MD [Physician] - As previously scheduled (Follow up with Dominik Ibarra PA-C, on 08/28/2022 @ 1:10 pm at [facility] office in [place].) Chrissy Looney PA-C [Primary Care Provider] - Discharge Health Status Multidrug resistant organism: No MDRO Diet/Activity/Treatments Diet: Diet as Tolerated Activity: The patient will be maintained on a standard total hip replacement protocol with weight bearing as tolerated and anterior and posterior hip precautions. Cold/Heat Therapy: Apply ice to hip as needed Skin/Wound/Dressing Care Report to your healthcare provider any signs of infection, such as:: chills, fever, night sweats, increased pain, unusual drainage and unusual redness Special Rehabilitation Services Reason for rehabilitation: Post-operative therapy Rehab type: Physical therapy and Occupational therapy Restrictions to mobility: The patient will be maintained on a standard total hip replacement protocol with weight bearing as tolerated and anterior and posterior hip precaution Visit Report/Discharge Packet Instructions: DI for Hip Replacement, DI for Prescription Opioid Use Stand Alone Forms: Patient Portal/API, Surgery Discharge Discharge Data Primary Care Provider: Chrissy Looney VTE Deep Vein Thrombosis/Pulmonary Embolism Present on Admission: No
[2022-08-14 11:44] LABS: COVID19 -Nasal RAPID Negative (Negative)
[2022-08-14] MEDS: SODIUM CHLORIDE 0.9% 1,000 ML 500 ML IV (13:30)
[2022-08-14 13:34] LABS: Hematocrit 37.7 % (36-46); Hemoglobin 12.4 g/dL (12.0-16.0)
--- NOTE | 2022-08-14 16:25 | PT.IPTN ---
Current Diagnoses Unspecified dislocation of unspecified hip, initial encounter (08/12/22) Unspecified complication of internal orthopedic prosthetic device, implant and graft, initial encounter (08/12/22) Presence of left artificial hip joint (08/12/22) Presence of unspecified artificial hip joint (08/12/22) Surgery Performed Operation Date: 08/12/22 10:45 Actual Procedures p Total Hip Arthroplasty Revision, femoral head component, posterior approach(Left) - Cristina Orosco MD Physical Therapy Treatment Note M2 PT-IP Current Condition Start: 08/13/22 13:15 Freq: NEEDED Status: Active Protocol: Document 08/14/22 15:35 SP (Rec: 08/14/22 19:59 SP [id number]) Physical Therapy Current Condition Current Condition Evaluation Date 08/13/22 Treatment Diagnosis s/p L YUNIOR revision; difficulty in walking Onset Date 08/12/22 M3 PT-IP Subjective Start: 08/13/22 13:15 Freq: NEEDED Status: Active Protocol: Document 08/14/22 15:35 SP (Rec: 08/14/22 19:59 SP [id number]) Subjective Physical Therapy Visit Type Type Treatment Note Visit Start Time 15:35 Visit Stop Time 16:25 Total Visit Minutes 50 Notes Vitals taken: seated: BP 119/56 HR 89 post gait seated in w/c hallway: BP 132/76 HR 90 Post stair mgt/ gait: BP 131/ 70 HR 95 Number of JIGSAW OPERATOR Visits 2 Physical Therapy Visit Comments Patient Comments Pt agreeable to working with therapy, states nervous about trying stairs and doesn't have anyone home to assist her with any physical support. Patient Goals Wanting to get stronger before going home, agreeable to SNF. Therapy Pain Assessment Pain When Pain Assessed During Mobility Pain Present Pain Present Pain Reported Location Left Hip Intensity 4 Scale Used Numeric (0 - 10) Description With Movement Pain Behaviors Facial Grimacing Pain Management Techniques Distraction,Modification of Treatment,Re-positioning M4 PT-IP Mobility and Gait Start: 08/13/22 13:15 Freq: NEEDED Status: Active Protocol: Document 08/14/22 15:35 SP (Rec: 08/14/22 19:59 SP [id number]) PT-Bed Mobility Assessment Sit to Supine Sit to Supine Minimal Assistance,1 Person Assistance,Bedrails PT-Transfer Assessment Sit to and From Stand Sit to and from Stand Contact Guard Assistance, Minimal Assistance,1 Person Assistance,Use of Upper Extremities Equipment Transfer Assistive Device Gait Belt,Front Wheeled Walker Orthotic/Prosthetic Devices or Brace: No Transfers Transfer Destination Bed,Wheelchair Transfer Technique ambulated w/ FWW Transfer Ability Level of Assist Contact Guard Assistance, Minimal Assistance,1 Person Assistance,Use of Upper Extremities Comments Mobility Comments CG- Min A STS from chair. Pt states not dizzy as was earlier this am but knows got some fluids to help. Gait to bench and back to chair w/ FWW CGA, Min A, good step to patterning small steps during turns as instructed. Pt able to progress further gait to w/ c in hallway 30 ft total Moderate BUE on FWW during LLE WB/RLE advancement. Cued step back and FWW fully to w/c, reach back CG/ Min A slow sit in w/c. Pt wheeled down to stairs. JIGSAW OPERATOR instructed proper patterning RLE ascend step to patterning BUE on R HR Mod A required to ascend 2 steps. Then fox step turn on 2nd step use L HR descend heavy BUE on rail. step to lead LLE cuing patterning descend Mod Ax1. Pt unsteady at bottom once on floor, Mod A for trunk support in standing w/ FWW. Pt agreeable to progression gait distance w/ FWW, JIGSAW OPERATOR providing CGA 1 UE while reach for w/c to follow, pt took 2 steps when L knee buckled then R, pt's FWW slight slide just out in front of her, JIGSAW OPERATOR provided quick anterior/posterior support to trunk via gait belt Max A x1 with cuing straight both of your knees and stand up tall, pull that walker closer and use for support, stand still when pt gained stability in standing, JIGSAW OPERATOR able to let go with 1 UE and bring w/c closer to sit, Mod A. Pt wheeled to room. Pt SPT w/ FWW to bed, back step w/ FWW provided 4 step for RLE step up on while reach back for bed and FWW support CGA/ Min A to assess high raised bed 28 and small step has to use at home. Pt able to scoot back with BUE on bed and BLE WB on step, Mod A for BLE into bed then pt able to scoot center in bed. JIGSAW OPERATOR instructed post op ex: AP, quad and glut set, heel slide 30 deg flexion LLE tolerates with pain. Pt had call light and all needs in reach, bed alarmed due to fall risk. JIGSAW OPERATOR recommending SNF for progressing strength and functional mobility safety before can safely return home. Gait Assessment Gait Gait Assistance Required: Contact Guard Assist,Minimum Assistance,1 Person Assist Distance (Feet) 20 Able to Maintain Weight Bearing Status Yes During Gait Assistive Devices Assistive Device Gait Belt,Front Wheeled Walker Orthotic/Prosthetic Devices or Brace: No Gait Deviations General Gait Pattern Antalgic,Decreased Stride Length,Decreased Feet Clearance,Step-to Gait Factors Limiting Gait Function Factors Limiting Gait Function Decreased Activity Tolerance, Decreased Strength,Difficulty Following Directions,Limited Range of Motion,Pain,Poor Balance,Poor Safety Awareness Comments Gait Comments see mobility comments: 1 LOB due to L >R knee buckled Max A x1 to recover in standing. Stair Climbing Assessment Evaluation Level of Assist On Stairs Moderate Assistance,1 Person Assistance Devices Stair Climbing Assistive Devices Right Railing Technique/Endurance Stair Climbing Direction Ascend and Descend Stair Climbing Technique Step to Step Number of Steps Climbed 2 Stair Climbing Set # Repetitions (reps) 1 Comments Stair Climbing Comments step to patterning, cues for lead RLE and upright posture for downward pressure on rail. PT-Balance Assessment Sitting Balance and Reactions Static Sitting Balance Ability Good Dynamic Sitting Balance Ability Fair Standing Balance and Reactions Static Standing Balance Ability Fair Dynamic Standing Balance Ability Fair Device Used FWW M5 PT-IP Objective Assessments Start: 08/13/22 13:15 Freq: NEEDED Status: Active Protocol: Document 08/13/22 08:55 AB (Rec: 08/13/22 13:34 AB [id number]) Orientation Orientation/Cognition Level of Alertness Alert Orientation Name,Place,Situation Language Function Ability No Deficits Noted Safety Awareness Decreased Safety Awareness Memory Description Short Term Impaired,Poultry Packer Impaired Gross Range of Motion Lower Extremity ROM Assessment Within Functional Limits Strength Lower Extremity Strength Assessment Left Impaired Hip 3+/5 Knee 4-/5 Sensation Assessment Sensation Gross Sensation WNL Muscle Tone Muscle Tone WNL Yes M6 PT-IP Treatment Start: 08/13/22 13:15 Freq: NEEDED Status: Active Protocol: Document 08/14/22 15:35 SP (Rec: 08/14/22 19:59 SP [id number]) Physical Therapy Treatment Exercises Exercises Ankle Pumps,Gluteal Sets,Quad Sets,Heel Slides Education Education Provided Precautions,Weight Bearing Status,Post-Op Packet,Safety Other Treatments Other Treatment Performed Mod cues required for maintaining anterior/posterior hip precautions. M7 PT-IP Assessment and Plan Start: 08/13/22 13:15 Freq: NEEDED Status: Active Protocol: Document 08/14/22 15:35 SP (Rec: 08/14/22 19:59 SP [id number]) PT Summary Assessment and Plan Potential Rehabilitation Potential Fair Status of Condition at Evaluation Evolving Summary Impairments Pain,ROM,Strength,Balance, Coordination,Sensation,Tone, Cognition,Bed Mobility, Transfers,Gait,Activity Tolerance Progress Towards Goals Slow Progress due to Pain,Slow Progress due to Activity Tolerance,Slow Progress - Other Assessment Summary Pt requires Mod A for sit> supine for BLEs into bed, CG/ Min A transfers/ gait w/ FWW, Mod A for stair mgt R HR. LOB x1 Max A to recover in standing due to L>R knee buckled during gait w/ FWW after stairs mgt. Pt doesn't have physical assistance at home, she is her husbands caregiver and no further family/friends to assist her. Pt will require SNF for progression in strength toward functional mobility. Goals Bed Mobility Goal Standby Assistance Transfer Goal Standby Assistance,Front Wheeled Walker Gait Goal Standby Assistance,Front Wheel Walker Gait Distance 200 Other Goals up/down 2 steps R rail ascending SBA Days to Meet Goals 10 Frequency of Treatment Frequency Of Treatment Twice a Day Treatment Plan Physical Therapy Treatment Plan Bed Mobility Training,Transfer Training,Gait Training, Therapeutic Exercise,Balance Retraining,Post Op Education, Discharge Planning,Hot or Cold Pack,Neuromuscular Re-ed, Coordination Retraining,Manual Therapy Other Recommendations and Next Treatment post op ex pre gait, recheck Focus precautions, safety HP during transfers, standing ex for pre gait strengthening safety prep Lquad fac. gait w/ FWW distance safe. Precautions Posterior Hip Precautions No Hip Flexion > 90 degrees,No Hip Internal Rotation,No Hip Adduction Anterior Hip Precautions No Hip Extension,No Hip External Rotation Weight Bearing Status Weight Bearing Status Weight Bear as Tolerated Allowed Weight Bearing Amount (enter % LLE WBAT or #) (%) Recommendations To Nursing Amount of Assist Needed 1 Person Assist Discharge Recommendations PT Discharge Recommendations SNF Rehab Transportation Needs at Discharge Wheelchair/Cabulance
--- NOTE | 2022-08-14 17:06 | OT.IPNOTE ---
Pt just completed PT earlier and states her legs buckled and just wanting to rest at this time. Able to go over stress management concepts for pt asa pt is very stressed and overwhelmed as insurance in not approving her to go to skilled rehab at this time. NO Charge.
[2022-08-14] MEDS: ROPINIROLE 1 MG TABLET 3 MG PO (20:33)
[2022-08-14] MEDS: GABAPENTIN 300 MG CAPSULE 900 MG PO (20:33)
[2022-08-14] MEDS: AMITRIPTYLINE 25 MG TABLET 50 MG PO (20:33)
[2022-08-14 20:35] VITALS: BP 121/63; PULSE 78
[2022-08-14 20:45] VITALS: BP 138/58; PULSE 80; RESP 18; TEMP 36.9; O2SAT 95
[2022-08-14] MEDS: CYCLOBENZAPRINE 10 MG TABLET PO (20:45)
[2022-08-14] MEDS: ONDANSETRON 4 MG ODT PO (20:45)
[2022-08-15 04:00] VITALS: BP 131/75; PULSE 78; RESP 17; TEMP 36.4; O2SAT 95
[2022-08-15] MEDS: GABAPENTIN 600 MG TABLET PO ×2 (05:45→11:33)
[2022-08-15] MEDS: CYCLOBENZAPRINE 10 MG TABLET PO (05:45)
[2022-08-15] MEDS: ACETAMINOPHEN 325 MG TABLET 650 MG PO ×2 (05:45→11:33)
[2022-08-15] MEDS: OXYCODONE IR 5 MG TABLET PO ×2 (05:46→11:34)
--- NOTE | 2022-08-15 07:59 | CM.DPC ---
Addendum entered by Justyna Abel R.N. 08/15/22 13:04: Spoke to Donna Amos at [facility], and she indicated, the reason that she was denied, was that P.T. notes indicated min assist of one. She indicated that Theresa Theodore did reach out to patient yesterday, she was angry. Patient does have 60 days to appeal case if she likes. Addendum entered by Justyna Abel R.N. 08/15/22 12:39: Called [facility], and found out that Theresa Theodore is out of the office. Donna Amos is the special education case manager working today. Left her a message asking her about denial for fci services, and the reasoning. Patient upset that [facility] is not covering fci, since she did not do well with P.T. Plan is still home, but patient had not appealed their decision. Will await call back from Donna. Addendum entered by Justyna Abel R.N. 08/15/22 12:12: Gave patient the [facility] brochure. Patient upset that [facility] did not auth her for fci. Let her know that [facility] have set up [facility] for patient, and that they have been updated about discharge. Original Note: DCP Cont: Patient is discharging home today, [facility] has denied auth, and patient was updated. Melissa Goode, PAC, came by, and is planning on discharging patient. She will get [facility]. Faxed over [facility] face to face, orders, DC Summary. Called Janet at [facility], and updated her. P: Patient is discharging home today with [facility]. She will have RN, O.T, P.T, and WHEELCHAIR RENTAL CLERK. Justyna Abel RN/Retail Agent
[2022-08-15 08:20] VITALS: BP 127/66; PULSE 72; RESP 16; TEMP 36.7; O2SAT 97
[2022-08-15] MEDS: polyethylene glycoL 3350 17 GM POWD.PACK PO (08:24)
[2022-08-15] MEDS: PANTOPRAZOLE DR 20 MG TABLET PO (08:24)
[2022-08-15] MEDS: FOLIC ACID 1 MG TABLET PO (08:24)
[2022-08-15] MEDS: AMLODIPINE 5 MG TABLET PO (08:24)
[2022-08-15 08:25] VITALS: BP 127/66; PULSE 72
[2022-08-15] MEDS: predniSONE 5 MG TABLET 10 MG PO (08:25)
[2022-08-15] MEDS: ASPIRIN EC 81 MG TABLET PO (08:25)
[2022-08-15] MEDS: HYDROXYCHLOROQUINE 200 MG TABLET 400 MG PO (08:25)
[2022-08-15] MEDS: DOCUSATE 100 MG CAPSULE PO (08:25)
[2022-08-15] MEDS: MONTELUKAST 10 MG TABLET PO (08:25)
--- NOTE | 2022-08-15 10:38 | OT.IPNOTE ---
Attempted to see pt for showering safety due to anterior and posterior precautions. Pt insistent that she does not want anyone to be there in the shower with her for showering, therefore unable to perform showering with pt. Able to go over and emphasize her precautions while sitting in the bed for showering needs and also suggested to have her precautions posted in her bathroom to help remind her. NO charge.
[2022-08-15] MEDS: HYDROCORTISONE 100 MG/2 ML VIAL IV (11:33)
--- NOTE | 2022-08-15 13:19 | PT.IPTN ---
Current Diagnoses Unspecified dislocation of unspecified hip, initial encounter (08/12/22) Unspecified complication of internal orthopedic prosthetic device, implant and graft, initial encounter (08/12/22) Presence of left artificial hip joint (08/12/22) Presence of unspecified artificial hip joint (08/12/22) Surgery Performed Operation Date: 08/12/22 10:45 Actual Procedures p Total Hip Arthroplasty Revision, femoral head component, posterior approach(Left) - Cristina Orosco MD Physical Therapy Treatment Note M2 PT-IP Current Condition Start: 08/13/22 13:15 Freq: NEEDED Status: Active Protocol: Document 08/14/22 15:35 SP (Rec: 08/14/22 19:59 SP [id number]) Physical Therapy Current Condition Current Condition Evaluation Date 08/13/22 Treatment Diagnosis s/p L YUNIOR revision; difficulty in walking Onset Date 08/12/22 M3 PT-IP Subjective Start: 08/13/22 13:15 Freq: NEEDED Status: Active Protocol: Document 08/15/22 12:39 [facility] (Rec: 08/15/22 13:19 [facility] [id number]) Subjective Physical Therapy Visit Type Type Treatment Note Visit Start Time 11:55 Visit Stop Time 12:36 Total Visit Minutes 41 Number of AIRPLANE RENTAL CLERK Visits 0 Physical Therapy Visit Comments Patient Comments Pt reports she is anxious about going home. Thinks she is going to fall Therapy Pain Assessment Pain When Pain Assessed During Mobility Pain Present Pain Present Pain Reported M4 PT-IP Mobility and Gait Start: 08/13/22 13:15 Freq: NEEDED Status: Active Protocol: Document 08/15/22 12:39 [facility] (Rec: 08/15/22 13:19 [facility] [id number]) PT-Bed Mobility Assessment Sit to Supine Sit to Supine Contact Guard Assistance PT-Transfer Assessment Sit to and From Stand Sit to and from Stand Standby Assistance,Use of Upper Extremities Equipment Transfer Assistive Device Gait Belt,Front Wheeled Walker Orthotic/Prosthetic Devices or Brace: No Comments Mobility Comments sit to stand from EOB SBA. Pt then amb with PT for 30 ft w/ FWW CGA but had 1 instance of LOB where PT had to help max A . She was brought in WC to stairs where she required max cueing for sit to stand out of WC w/CGA. Pt then amb up/down stairs w/2 hands on rail step to up w/max cues and down step to down w/max cues. Pt sat in chair CGA and w/c back kto room and stood to FWW CGA. While PT was talking w/pt about saftey, pt had LOB and required mod A to regain balance. Pt amb into room 10ft w/FWW and sat in bed CGA. max cues to use cane to help LLE into bed and CGA. Pt left with call light in reach and bed alarm on. Gait Assessment Gait Gait Assistance Required: Contact Guard Assist,Maximum Assistance Distance (Feet) 40 Able to Maintain Weight Bearing Status Yes During Gait Assistive Devices Assistive Device Gait Belt,Front Wheeled Walker Orthotic/Prosthetic Devices or Brace: No Gait Deviations General Gait Pattern Antalgic,Decreased Stride Length,Decreased Feet Clearance,Step-to Gait Factors Limiting Gait Function Factors Limiting Gait Function Decreased Activity Tolerance, Decreased Strength,Difficulty Following Directions,Limited Range of Motion,Pain,Poor Balance,Poor Safety Awareness Stair Climbing Assessment Evaluation Level of Assist On Stairs Contact Guard Assistance Devices Stair Climbing Assistive Devices Right Railing Technique/Endurance Stair Climbing Direction Ascend and Descend Stair Climbing Technique Step to Step Number of Steps Climbed 2 Stair Climbing Set # Repetitions (reps) 1 M5 PT-IP Objective Assessments Start: 08/13/22 13:15 Freq: NEEDED Status: Active Protocol: Document 08/13/22 08:55 AB (Rec: 08/13/22 13:34 [id number]) Orientation Orientation/Cognition Level of Alertness Alert Orientation Name,Place,Situation Language Function Ability No Deficits Noted Safety Awareness Decreased Safety Awareness Memory Description Short Term Impaired,Halfway Impaired Gross Range of Motion Lower Extremity ROM Assessment Within Functional Limits Strength Lower Extremity Strength Assessment Left Impaired Hip 3+/5 Knee 4-/5 Sensation Assessment Sensation Gross Sensation WNL Muscle Tone Muscle Tone WNL Yes M6 PT-IP Treatment Start: 08/13/22 13:15 Freq: NEEDED Status: Active Protocol: Document 08/15/22 12:39 [facility] (Rec: 08/15/22 13:19 [facility] [id number]) Physical Therapy Treatment Other Treatments Other Treatment Performed cues re: safety for stairs and edu re: keeping her phone on her if she does end up going home. Edu w/precautions M7 PT-IP Assessment and Plan Start: 08/13/22 13:15 Freq: NEEDED Status: Active Protocol: Document 08/15/22 12:39 [facility] (Rec: 08/15/22 13:19 [facility] [id number]) PT Summary Assessment and Plan Summary Impairments Pain,ROM,Strength,Balance, Coordination,Sensation,Tone, Cognition,Bed Mobility, Transfers,Gait,Activity Tolerance Progress Towards Goals Slow Progress due to Pain,Slow Progress due to Activity Tolerance,Slow Progress - Other Assessment Summary Pt did well overall with mobility, but continues to be unsafe with mobility as she had 2 LOB during session today . She cont to be unsafe to go home and PT recommendation is SNF rehab Goals Bed Mobility Goal Standby Assistance Transfer Goal Standby Assistance,Front Wheeled Walker Gait Goal Standby Assistance,Front Wheel Walker Gait Distance 200 Other Goals up/down 2 steps R rail ascending SBA Days to Meet Goals 10 Frequency of Treatment Frequency Of Treatment Twice a Day Treatment Plan Physical Therapy Treatment Plan Bed Mobility Training,Transfer Training,Gait Training, Therapeutic Exercise,Balance Retraining,Post Op Education, Discharge Planning,Hot or Cold Pack,Neuromuscular Re-ed, Coordination Retraining,Manual Therapy Precautions Posterior Hip Precautions No Hip Flexion > 90 degrees,No Hip Internal Rotation,No Hip Adduction Anterior Hip Precautions No Hip Extension,No Hip External Rotation Weight Bearing Status Weight Bearing Status Weight Bear as Tolerated Allowed Weight Bearing Amount (enter % LLE WBAT or #) (%) Recommendations To Nursing Amount of Assist Needed 1 Person Assist Discharge Recommendations PT Discharge Recommendations SNF Rehab Transportation Needs at Discharge Wheelchair/Cabulance
== END 2022-08-15 13:10 | disposition home health service (06) | DRG 468 ==
PROVIDERS: Physician Assistant; Admitting Provider Orthopaedic Surgery; Family Provider Physician Assistant Medical; PCP Physician Assistant Medical; Referring Provider Orthopaedic Surgery; Visit Provider Orthopaedic Surgery
PROC: 0SRB0JZ Replacement of Left Hip Joint with Synthetic Substitute, Open Approach (ICD-10-PCS; principal; 2022-08-12 10:45)
DX: T84.021A Dislocation of internal left hip prosthesis, initial encounter (principal); M21.372 Foot drop, left foot; M79.7 Fibromyalgia; I10 Essential (primary) hypertension; F32.A Depression, unspecified; K21.9 Gastro-esophageal reflux disease without esophagitis; J45.909 Unspecified asthma, uncomplicated; F41.9 Anxiety disorder, unspecified; D86.9 Sarcoidosis, unspecified; Z20.822 Contact with and (suspected) exposure to COVID-19
CPT/HCPCS: 36415; 73502; 82962; 85014; 85018; 87070; 87075; 87205; 87635; 94640; 97116; 97162; 97166; 97530; 97535; C1776; C9803; C9290; J0690; J1720; J2250; J3010; J7613

== ENCOUNTER 2022-08-22 16:40 | Emergency (ER) | payer OTHER, SELFPAY ==
[2022-08-12 17:13] VITALS: BMI 26.2
[2022-08-22] VITALS (9 sets, daily range): BP systolic 130–143; BP diastolic 65–80; PULSE 74–89; RESP 15; TEMP 36.6; O2SAT 94–99; BMI 26.9
[2022-08-22] MEDS: ONDANSETRON 4 MG/2 ML INJ IV (17:10)
[2022-08-22 17:19] LABS: Add Manual Diff / Slide Review NO; Basophils Absolute Auto 0 /uL (0-100); Basophils Percent Auto 0.3 % (0-2); Eosinophils Absolute Auto 200 /uL (0-450); Eosinophils Percent Auto 2.8 % (2-4); Hematocrit 40.6 % (36-46); Hemoglobin 13.7 g/dL (12.0-16.0); Lymphocytes Absolute Auto 1400 /uL (1100-4500); Mean Corpuscular HGB Conc 33.7 % (30-36); Mean Corpuscular Hemoglobin 31.2 PG (26-34); Mean Corpuscular Volume 92.5 fL (80-100); Monocytes Absolute Auto 700 /uL (0-900); Monocytes Percent Auto 8.8 % (3-14); Neutrophils Absolute Auto 6200 /uL (1500-7000); Neutrophils Percent Auto 72.1 % (50-75); Platelet Count 405 X10^3/uL (150-400); Red Blood Cell Count 4.38 X10^6/uL (4.0-5.2); White Blood Cell Count 8.6 X10^3/uL (4.5-11.0)
[2022-08-22 17:26] LABS: Alanine Aminotransferase 23 IU/L (<35); Albumin 4.3 g/dL (3.5-5.0); Albumin Globulin Ratio 1.3 (1.0-2.8); Alkaline Phosphatase 71 U/L (38-126); Aspartate Aminotransferase 35 IU/L (14-36); BUN Creatinine Ratio 30.3 (6-22); Bilirubin Total 0.9 mg/dL (0.2-1.3); Blood Urea Nitrogen 23 mg/dL (7-17); Calcium 9.1 mg/dL (8.4-10.2); Carbon Dioxide 29 mmol/L (22-32); Chloride 102 mmol/L (98-107); Estimated Glomerular Filt Rate > 60 mL/min (>60); Globulin 3.4 g/dL (1.7-4.1); Glucose 92 mg/dL (80-110); Lipase 53 U/L (23-300); Sodium 139 mmol/L (137-145); Total Protein 7.7 g/dL (6.3-8.2)
[2022-08-22 17:28] LABS: HEMOLYSIS 85 (0-50)
--- NOTE | 2022-08-22 17:37 | DI.CT.S_ITS ---
PROCEDURE: CT ABDOMEN PELVIS W CON INDICATIONS: abdominal pain, s/p hip sx for dislocation 08/14 range TECHNIQUE: After the administration of intravenous contrast, axial sections acquired from the lung bases to the pubic symphysis. Coronal and sagittal reformats were performed. For radiation dose reduction, the following was used: automated exposure control, adjustment of mA and/or kV according to patient size. COMPARISON: None. FINDINGS: Included portions of the lung bases demonstrate no acute finding. Calcified granulomata again noted. Normal CT appearance of the liver, gallbladder, spleen, pancreas, adrenal glands, and kidneys. No acute enteric abnormality. No free fluid or free air. Streak artifact from bilateral total hip arthroplasties limits evaluation of pelvis. Within this limitation, the urinary bladder is grossly unremarkable. There is no definite evidence of pelvic fracture. IMPRESSION: No acute finding identified. 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 Dictated by: Woo Roberts M.D. on 08/22/2022 at 18:21 Approved by: Woo Roberts M.D. on 08/22/2022 at 18:24
--- NOTE | 2022-08-22 17:50 | ED_ITS ---
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 Patient states she is had nausea, no vomiting. She denies fevers. She is had some mild chills. She denies chest pain or shortness of breath. Patient denies any constipation. States she had a yellow orange stool yesterday that was loose. She is not had recurrent diarrhea. She denies bright red blood or black stools. No dysuria urgency or frequency. She states she has not been walking. She states she went to [facility] and was there for several days and ultimately discharged home, she is not exactly clear about why she was there. She states her hip pain has been persistent and she has not been walki ng, she has not been taking any of her home medications, she isn't sure all of her medications but states she has taken Plaquenil and methotrexate until recently she stopped her blood pressure medications at least 2 weeks ago and her prednisone as well. She states she is not eating and drinking much. She does state she continues to drink a glass wine nightly she states it is a regular- sized glass, no tobacco, denies any illicit. Patient follows with pulmonology Dr. Mckoy at [facility] and rheumatology Dr. Butler. Her primary care is CLAUDY looney. Related Data Home Medications Medication Instructions Recorded Confirmed cyclobenzaprine 10 mg tablet 10 mg PO TID PRN Muscle Spasm ##0 03/31/17 08/07/22 gabapentin 600 mg tablet 600 mg PO SEEINSTR ##0 03/31/17 08/12/22 (Neurontin) hydroxychloroquine 200 mg tablet 400 mg PO QDAY ##0 03/31/17 08/12/22 (Plaquenil) albuterol sulfate 90 mcg/actuation 2 puff inhalation Q4-6H PRN 02/26/21 08/07/22 aerosol inhaler Shortness Of Breath amitriptyline 50 mg tablet 50 mg PO BEDTIME 02/26/21 08/12/22 amlodipine 5 mg tablet 5 mg PO BID 02/26/21 08/12/22 ciclesonide 80 mcg/actuation 1 puff inhalation BID 02/26/21 08/07/22 aerosol inhaler folic acid 1 mg tablet 1 - 5 mg PO DAILY Mouth sores 02/26/21 08/12/22 losartan 50 mg tablet 50 mg PO BID 02/26/21 08/12/22 montelukast 10 mg tablet 10 mg PO BID 02/26/21 08/12/22 naproxen sodium 220 mg tablet 220 mg PO BID PRN Pain 02/26/21 08/07/22 omeprazole 20 mg tablet,delayed 20 mg PO BID 02/26/21 08/12/22 release ropinirole 3 mg tablet 3 mg PO BEDTIME RLS 02/26/21 08/12/22 methotrexate sodium 2.5 mg tablet 2.5 mg PO WEEKLY 08/12/22 08/12/22 Previous Rx's Medication Instructions Recorded acetaminophen 325 mg tablet 650 mg PO TID #60 tabs 03/02/21 polyethylene glycol 3350 17 gram 17 gm PO DAILY PRN Constipation 03/02/21 oral powder packet #10 ea prednisone 10 mg tablet 10 mg PO DAILY #10 tabs 03/02/21 aspirin 81 mg tablet,delayed 81 mg PO BID #60 tabs 08/14/22 release oxycodone 5 mg tablet 5 mg PO Q3HR PRN Pain, Moderate 08/14/22 (4-6) #60 tabs dicyclomine 10 mg capsule 10 mg PO BID PRN Abdominal 08/22/22 cramping #20 caps lorazepam 0.5 mg tablet (Ativan) 0.5 mg PO BID PRN anxiety #14 tabs 08/22/22 ondansetron 4 mg disintegrating 4 mg PO Q6H PRN nausea and 08/22/22 tablet vomiting #10 tabs sucralfate 100 mg/mL oral 10 ml PO QACHS #400 mL 08/22/22 suspension (Carafate) Allergies Allergy/AdvReac Type Severity Reaction Status Date / Time adhesive AdvReac Mild Rash Verified 08/22/22 16:51 Review of Systems <Jennifer Quevedo, DO - Last Filed: 08/24/22 08:06> Review of Systems ROS Unobtainable: All systems reviewed & are unremarkable except as noted in HPI and below Patient History <Jennifer Quevedo DO - Last Filed: 08/24/22 08:06> Medical History Abrasion (02/25/21) Acute on chronic respiratory failure Adrenal insufficiency Anxiety Asthma Chronic pain disorder COVID-19 virus infection Depression Dislocation, hip Easy bruisability Elevated coronary artery calcium score Fibromyalgia Frequent falls GERD (gastroesophageal reflux disease) HTN (hypertension) Hyperlipidemia Hypoxemia ILD (interstitial lung disease) Osteoarthritis Pneumonia RBBB (right bundle branch block) Sarcoid neuropathy Sarcoidosis Surgical History H/O total hip arthroplasty (04/21/17) History of bunionectomy of left great toe (10/2015) History of hysterectomy History of lung biopsy History of total left hip replacement (02/28/21) Hx of cardiac cath Hx of tonsillectomy Family History Mother COPD (chronic obstructive pulmonary disease) Cancer Hypertension Father Aneurysm Asthma Social History household members: spouse and children occupational status: other (Retired) Smoking Status: Never smoker alcohol intake: current Smoking Status: Never smoker alcohol intake frequency: a few times a week Alcohol type: wine Substance Use Type: does not use Exam <Jennifer Quevedo DO - Last Filed: 08/24/22 08:06> Narrative Exam Narrative: GENERAL: Alert and oriented x three, female in mild distress. HEENT: Head normocephalic, atraumatic, EOMI, pupils reactive, face symmetric, moist mucous membranes NECK: Supple, full range of motion CARDIOVASCULAR: Regular rate and rhythm without murmurs, rubs or gallops. RESPIRATORY: Breath sounds equal bilaterally, no wheezes rales or rhonchi. ABDOMEN: Soft, nontender. Mildly distended. Normoactive bowel sounds all 4 quadrants. No guarding or rebound, rigidity, no mass : No CVA tenderness EXTREMITIES: Decreased range of motion at the left. Patient does not appear to be externally rotated or shortened, she is 2+ pulses bilateral lower extremities. Sensation to light touch to both., no clubbing or edema. Neurovascularly intact NEUROLOGICAL: Cranial nerves II through XII grossly intact. Moving all extremities SKIN: Warm, dry, no petechiae, no rashes or lesions. Initial Vital Signs Initial Vital Signs: Vital Signs Temperature 97.9 F 08/22/22 16:45 Pulse Rate 86 08/22/22 16:45 Respiratory Rate 15 08/22/22 16:45 Blood Pressure 130/80 08/22/22 16:45 Pulse Oximetry 98 08/22/22 16:45 Oxygen Delivery Method 08/22/22 16:45 <Edwin Love DO - Last Filed: 08/22/22 23:36> Initial Vital Signs Initial Vital Signs: Vital Signs Temperature 97.9 F 08/22/22 16:45 Pulse Rate 86 08/22/22 16:45 Respiratory Rate 15 08/22/22 16:45 Blood Pressure 130/80 08/22/22 16:45 Pulse Oximetry 98 08/22/22 16:45 Oxygen Delivery Method 08/22/22 16:45 Course <Jennifer Quevedo, DO - Last Filed: 08/24/22 08:06> Orders Ordered: Discontinued Medications Sodium Chloride (Normal Saline 0.9%) 1,000 mls @ 1,000 mls/hr IV BOLUS ONE Stop: 08/22/22 18:37 Last Infusion: 08/22/22 19:44 Dose: 0 mls/hr Documented By: Admin: 08/22/22 18:10 Dose: 1,000 mls/hr Documented By: SHIVANI Lorazepam (Lorazepam 0.5 Mg Tablet) 1 mg PO NOW ONE Stop: 08/22/22 20:52 Last Admin: 08/22/22 21:04 Dose: 1 mg Documented By: SHIVANI Ondansetron HCl (Ondansetron 4 Mg/2 Ml Inj) 4 mg IV NOW PRN PRN Reason: Nausea And Vomiting Last Admin: 08/22/22 17:10 Dose: 4 mg Documented By: SHIVANI Ondansetron HCl (Ondansetron 4 Mg/2 Ml Inj) 4 mg IV NOW ONE Stop: 08/22/22 17:39 Last Admin: 08/22/22 18:10 Dose: Not Given Documented By: SHIVANI Pantoprazole Sodium (Pantoprazole 40 Mg Vial) 40 mg IV NOW ONE Stop: 08/22/22 17:39 Last Admin: 08/22/22 18:11 Dose: 40 mg Documented By: SHIVANI Sucralfate (Sucralfate 1 Gm Tablet) 1 gm PO NOW ONE Stop: 08/22/22 20:52 Last Admin: 08/22/22 21:04 Dose: 1 gm Documented By: SHIVANI Vital Signs Vital signs: Vital Signs - 8 hr 08/22/22 16:45 08/22/22 16:49 08/22/22 17:00 Temperature 97.9 F Pulse Rate 86 89 79 Respiratory Rate 15 Blood Pressure 130/80 Pulse Oximetry 98 98 98 Oxygen Delivery Method Room Air 08/22/22 17:30 08/22/22 18:03 08/22/22 18:17 Temperature Pulse Rate 79 76 Respiratory Rate Blood Pressure 143/65 H 143/65 H Pulse Oximetry 96 99 Oxygen Delivery Method 08/22/22 18:17 08/22/22 18:30 08/22/22 19:00 Temperature Pulse Rate 74 81 78 Respiratory Rate Blood Pressure Pulse Oximetry 99 98 94 Oxygen Delivery Method 08/22/22 21:10 Temperature Pulse Rate 80 Respiratory Rate Blood Pressure 143/65 H Pulse Oximetry 97 Oxygen Delivery Method Room Air <Edwin Love DO - Last Filed: 08/22/22 23:36> Orders Ordered: Discontinued Medications Sodium Chloride (Normal Saline 0.9%) 1,000 mls @ 1,000 mls/hr IV BOLUS ONE Stop: 08/22/22 18:37 Last Infusion: 08/22/22 19:44 Dose: 0 mls/hr Documented By: Admin: 08/22/22 18:10 Dose: 1,000 mls/hr Documented By: SHIVANI Lorazepam (Lorazepam 0.5 Mg Tablet) 1 mg PO NOW ONE Stop: 08/22/22 20:52 Last Admin: 08/22/22 21:04 Dose: 1 mg Documented By: SHIVANI Ondansetron HCl (Ondansetron 4 Mg/2 Ml Inj) 4 mg IV NOW PRN PRN Reason: Nausea And Vomiting Last Admin: 08/22/22 17:10 Dose: 4 mg Documented By: SHIVANI Ondansetron HCl (Ondansetron 4 Mg/2 Ml Inj) 4 mg IV NOW ONE Stop: 08/22/22 17:39 Last Admin: 08/22/22 18:10 Dose: Not Given Documented By: SHIVANI Pantoprazole Sodium (Pantoprazole 40 Mg Vial) 40 mg IV NOW ONE Stop: 08/22/22 17:39 Last Admin: 08/22/22 18:11 Dose: 40 mg Documented By: SHIVANI Sucralfate (Sucralfate 1 Gm Tablet) 1 gm PO NOW ONE Stop: 08/22/22 20:52 Last Admin: 08/22/22 21:04 Dose: 1 gm Documented By: SHIVANI Vital Signs Vital signs: Vital Signs - 8 hr 08/22/22 16:45 08/22/22 16:49 08/22/22 17:00 Temperature 97.9 F Pulse Rate 86 89 79 Respiratory Rate 15 Blood Pressure 130/80 Pulse Oximetry 98 98 98 Oxygen Delivery Method Room Air 08/22/22 17:30 08/22/22 18:03 08/22/22 18:17 Temperature Pulse Rate 79 76 Respiratory Rate Blood Pressure 143/65 H 143/65 H Pulse Oximetry 96 99 Oxygen Delivery Method 08/22/22 18:17 08/22/22 18:30 08/22/22 19:00 Temperature Pulse Rate 74 81 78 Respiratory Rate Blood Pressure Pulse Oximetry 99 98 94 Oxygen Delivery Method 08/22/22 21:10 Temperature Pulse Rate 80 Respiratory Rate Blood Pressure 143/65 H Pulse Oximetry 97 Oxygen Delivery Method Room Air MDM - Abdominal Pain <Jennifer Quevedo DO - Last Filed: 08/24/22 08:06> Lab Data Result diagrams: 08/22/22 17:07 08/22/22 17:07 Labs: Lab Results 08/22/22 08/22/22 08/22/22 Range/Units 17:07 17:07 17:07 WBC 8.6 (4.5-11.0) X10^3/uL RBC 4.38 (4.0-5.2) X10^6/uL Hgb 13.7 (12.0-16.0) g/dL Hct 40.6 (36-46) % MCV 92.5 (80-100) fL MCH 31.2 (26-34) PG MCHC 33.7 (30-36) % RDW 16.0 H (11.6-14.8) % Plt Count 405 H (150-400) X10^3/uL Neut % (Auto) 72.1 (50-75) % Lymph % (Auto) 16.0 L (25-40) % Carroll % (Auto) 8.8 (3-14) % Eos % (Auto) 2.8 (2-4) % Baso % (Auto) 0.3 (0-2) % Neut # (Auto) 6200 (7619-8622) /uL Lymph # (Auto) 1400 (5955-2032) /uL Carroll # (Auto) 700 (0-900) /uL Eos # (Auto) 200 (0-450) /uL Baso # (Auto) 0 (0-100) /uL Sodium 139 (137-145) mmol/L Potassium 4.0 (3.4-5.1) mmol/L Chloride 102 (98-107) mmol/L Carbon Dioxide 29 (22-32) mmol/L BUN 23 H (7-17) mg/dL Creatinine 0.76 (0.52-1.04) mg/dL Estimated GFR > 60 (>60) mL/min BUN/Creatinine Ratio 30.3 H (6-22) Glucose 92 (80-110) mg/dL Calcium 9.1 (8.4-10.2) mg/dL Total Bilirubin 0.9 (0.2-1.3) mg/dL AST 35 (14-36) IU/L ALT 23 (<35) IU/L Alkaline Phosphatase 71 (38-126) U/L Total Protein 7.7 (6.3-8.2) g/dL Albumin 4.3 (3.5-5.0) g/dL Globulin 3.4 (1.7-4.1) g/dL Albumin/Globulin Ratio 1.3 (1.0-2.8) Lipase 53 (23-300) U/L Ethyl Alcohol < 10 ( - 10) mg/dL ECG Data Attestation: I personally reviewed and interpreted this ECG as follows: Prior ECG tracings: not available for review Interpretation: Sinus rhythm rate of 77 MO 148 QRS of 126 and QTC of 482. Right bundle-branch block. No prior for comparison. MDM Narrative Medical decision making narrative: This is a 67-year-old female with complaint of abdominal pain she states she had stool today that was orange yellow and soft. Patient describes general pain. She has not been eating or drinking but denies persistent vomiting. She is been nauseated. She had hip dislocation earlier in the month and had surgery as it has been recurrent here at [facility] and spent several days at [facility] most recently for depression/anxiety. Patient labs overall reassuring, patient has not given urine sample yet. CT abdomen pelvis is pending. Patient signed out to Dr. Love while awaiting these results. Patient has been stable and well-appearing overall. Dr love: Received turned over. Review patient's history and physical exam. Performed my own independent exam. Her CT scan today is relatively unremarka ble. Her labs are unremarkable. There is no infectious/surgical etiology. Had a long discussion with her and her family at bedside regarding her symptoms. It appears that the reason that she is not taking any of her medicines were sleeping or eating or drinking as because of the abdominal discomfort that she is having. She understands that the workup today is negative she understands that there is no surgical process. We talked about her last emergency department/hospital visit. She states she was sent home with a prescription for lorazepam. She thought that maybe the lorazepam actually helped her symptoms and kept the intensity down. She is on a PPI. The plan is to give her prescr iption for some Ativan as I think that a lot of her symptoms are anxiety/depression related. Will add Carafate to her GI regimen as potentially a ulcer could be causing her discomfort. Also try Bentyl. I will have her contact her primary doctor for 5. She was given return precautions. She expre ssed understanding and agreement. <Edwin Love, DO - Last Filed: 08/22/22 23:36> Differential Diagnosis Differential diagnosis: Likely abdominal pain, acute appendicitis, constipation, diverticulitis and small bowel obstruction Condition is:: Well Controlled Chronic Condition is having:: Moderate exacerbation Condition is at treatment goal?: Yes Medical Records Attestation: I reviewed the patient's medical records. Medical records narrative: Discharged with diagnosis of anxiety/depression Lab Data Attestation: I reviewed the patient's lab results. Labs: Lab Results 08/22/22 08/22/22 08/22/22 Range/Units 17:07 17:07 17:07 WBC 8.6 (4.5-11.0) X10^3/uL RBC 4.38 (4.0-5.2) X10^6/uL Hgb 13.7 (12.0-16.0) g/dL Hct 40.6 (36-46) % MCV 92.5 (80-100) fL MCH 31.2 (26-34) PG MCHC 33.7 (30-36) % RDW 16.0 H (11.6-14.8) % Plt Count 405 H (150-400) X10^3/uL Neut % (Auto) 72.1 (50-75) % Lymph % (Auto) 16.0 L (25-40) % Carroll % (Auto) 8.8 (3-14) % Eos % (Auto) 2.8 (2-4) % Baso % (Auto) 0.3 (0-2) % Neut # (Auto) 6200 (7929-5462) /uL Lymph # (Auto) 1400 (0523-0032) /uL Carroll # (Auto) 700 (0-900) /uL Eos # (Auto) 200 (0-450) /uL Baso # (Auto) 0 (0-100) /uL Sodium 139 (137-145) mmol/L Potassium 4.0 (3.4-5.1) mmol/L Chloride 102 (98-107) mmol/L Carbon Dioxide 29 (22-32) mmol/L BUN 23 H (7-17) mg/dL Creatinine 0.76 (0.52-1.04) mg/dL Estimated GFR > 60 (>60) mL/min BUN/Creatinine Ratio 30.3 H (6-22) Glucose 92 (80-110) mg/dL Calcium 9.1 (8.4-10.2) mg/dL Total Bilirubin 0.9 (0.2-1.3) mg/dL AST 35 (14-36) IU/L ALT 23 (<35) IU/L Alkaline Phosphatase 71 (38-126) U/L Total Protein 7.7 (6.3-8.2) g/dL Albumin 4.3 (3.5-5.0) g/dL Globulin 3.4 (1.7-4.1) g/dL Albumin/Globulin Ratio 1.3 (1.0-2.8) Lipase 53 (23-300) U/L Ethyl Alcohol < 10 ( - 10) mg/dL Imaging Data CT scan - abdomen/pelvis: Radiologist's Impression: [address] [address] [address] Scan Report Signed Patient: Lupe Wright MR#: [id number] : 1955 Acct:[id number] Age/Sex: 67 / F Date of Service: 08/22/22 Loc: ED Accession Number: [id number] ?? Procedure: CT abdomen pelvis w con Ordering Provider: Jennifer Quevedo D.O. PROCEDURE:? CT ABDOMEN PELVIS W CON ? INDICATIONS:? abdominal pain, s/p hip sx for dislocation 08/14 range ? TECHNIQUE:? After the administration of intravenous contrast, axial sections acquired from the lung bases to the pubic symphysis.? Coronal and sagittal reformats were performed.? For radiation dose reduction, the following was used:? automated exposure control, adjustment of mA and/or kV according to patient size.? ? COMPARISON:? None. ? FINDINGS:? Included portions of the lung bases demonstrate no acute finding.? Calcified granulomata again noted.? Normal CT appearance of the liver, gallbladder, spleen, pancreas, adrenal glands, and kidneys.? No acute enteric abnormality.? No free fluid or free air.? Streak artifact from bilateral total hip arthroplasties limits evaluation of pelvis.? Within this limitation, the urinary bladder is grossly unremarkable.? There is no definite evidence of pelvic fracture. ? ? IMPRESSION:? No acute finding identified.? 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 ? ? Dictated by: Woo Roberts M.D. on 08/22/2022 at 18:21 ? ? Approved by: Woo Roberts M.D. on 08/22/2022 at 18:24?? [facility] Narrative Medical decision making narrative: This is a 67-year-old female with complaint of abdominal pain she states she had stool today that was orange yellow and soft. Patient describes general pain. She has not been eating or drinking but denies persistent vomiting. She is been nauseated. She had hip dislocation earlier in the month and had surgery as it has been recurrent here at [facility] and spent several days at [facility] most recently for depression/anxiety Dr love: Received turned over. Review patient's history and physical exam. Performed my own independent exam. Her CT scan today is relatively unremarkable. Her labs are unremarkable. There is no infectious/surgical et iology. Had a long discussion with her and her family at bedside regarding her symptoms. It appears that the reason that she is not taking any of her medicines were sleeping or eating or drinking as because of the abdominal discomfort that she is having. She understands that the workup today is n egative she understands that there is no surgical process. We talked about her last emergency department/hospital visit. She states she was sent home with a prescription for lorazepam. She thought that maybe the lorazepam actually helped her symptoms and kept the intensity down. She is on a PPI. The plan is to give her prescription for some Ativan as I think that a lot of her symptoms are anxiety/depression related. Will add Carafate to her GI regimen as potentially a ulcer could be causing her discomfort. Also try Bentyl. I will have her contact her primary doctor for 5. She was given return precautions. She expressed understanding and agreement. Discharge Plan Departure Patient Disposition: Home Clinical Impression: Abdominal pain Instructions: DI for Abdominal Pain-Adult Activity Restrictions/Additional Instructions: I do recommend that on Thursday you contact your primary doctor for follow-up. Be sure that you are increasing your fluid intake by drinking small amounts of fluid over long periods of time. Take the medication as directed. Prescriptions: New sucralfate [Carafate] 100 mg/mL suspension 10 ml PO QACHS Qty: 400 0RF lorazepam [Ativan] 0.5 mg tablet 0.5 mg PO BID PRN (Reason: anxiety) Qty: 14 0RF dicyclomine 10 mg capsule 10 mg PO BID PRN (Reason: Abdominal cramping) Qty: 20 0RF ondansetron 4 mg tablet,disintegrating 4 mg PO Q6H PRN (Reason: nausea and vomiting) Qty: 10 0RF No Action gabapentin [Neurontin] 600 MG tablet 600 mg PO SEEINSTR Qty: 0 Rx Instructions: 600mg qam, qnoon, 900mg hs cyclobenzaprine 10 MG tablet 10 mg PO TID PRN (Reason: Muscle Spasm) Qty: 0 hydroxychloroquine [Plaquenil] 200 MG tablet 400 mg PO QDAY Qty: 0 losartan 50 mg Tablet 50 mg PO BID ropinirole 3 mg Tablet 3 mg PO BEDTIME amlodipine 5 mg Tablet 5 mg PO BID amitriptyline 50 mg Tablet 50 mg PO BEDTIME naproxen sodium 220 mg Tablet 220 mg PO BID PRN (Reason: Pain) folic acid 1 mg Tablet 1 - 5 mg PO DAILY montelukast 10 mg Tablet 10 mg PO BID albuterol sulfate 90 mcg/actuation Hfa Aerosol Inhaler 2 puff INHALATION Q4-6H PRN (Reason: Shortness Of Breath) omeprazole 20 mg Tablet,Delayed Release (Dr/Ec) 20 mg PO BID ciclesonide 80 mcg/actuation Hfa Aerosol Inhaler 1 puff INHALATION BID acetaminophen 325 mg Tablet 650 mg PO TID Qty: 60 0RF polyethylene glycol 3350 17 gram Powder In Packet 17 gm PO DAILY PRN (Reason: Constipation) Qty: 10 0RF prednisone 10 mg tablet 10 mg PO DAILY Qty: 10 0RF methotrexate sodium 2.5 mg tablet 2.5 mg PO WEEKLY Label Comments: take 8 tablets by mouth EVERY WEEK Rx Instructions: 8 tablets weekly aspirin 81 mg Tablet,Delayed Release (Dr/Ec) 81 mg PO BID Qty: 60 0RF oxycodone 5 mg Tablet 5 mg PO Q3HR PRN (Reason: Pain, Moderate (4-6)) Qty: 60 0RF Referrals: Chrissy Looney PA-C [Primary Care Provider] - Stand Alone Forms: Patient Portal/API
[2022-08-22 17:59] LABS: Ethanol (ETOH) < 10 mg/dL
[2022-08-22] MEDS: SODIUM CHLORIDE 0.9% 1,000 ML 1000 ML IV (18:10)
[2022-08-22] MEDS: PANTOPRAZOLE 40 MG VIAL IV (18:11)
--- NOTE | 2022-08-22 18:18 | PC.NURSE ---
Pt reports voiding once a day for last 5 days. Provider aware.
[2022-08-22] MEDS: SUCRALFATE 1 GM TABLET PO (21:04)
[2022-08-22] MEDS: LORazepam 0.5 MG TABLET 1 MG PO (21:04)
== END 2022-08-22 21:12 | disposition home or self-care (01) ==
PROVIDERS: Emergency Medicine; Emergency Provider Emergency Medicine; Family Provider Physician Assistant Medical; PCP Physician Assistant Medical
DX: R10.9 Unspecified abdominal pain (principal); R11.0 Nausea; Z79.899 Other long term (current) drug therapy
CPT/HCPCS: 36415; 51798; 74177; 80053; 80320; 83690; 85025; 93005; 96361; 96374; 96375; 99284; 99285; C9113; J2405; Q9967

== ENCOUNTER → 2023-10-03 14:28 | Outpatient (CLI) | payer OTHER, SELFPAY ==
[2022-08-12 17:13] VITALS: BMI 26.2
--- NOTE | 2023-10-03 | DI.CT.S_ITS ---
PROCEDURE: CT CHEST WO CON INDICATIONS: Sarcoidosis of lung TECHNIQUE: Noncontrast 5 mm thick sections acquired from the pulmonary apices to the posterior costophrenic angles. 1 mm lung window, 5 mm thick coronal and sagittal and 7 mm axial MIP reformats were then acquired. For radiation dose reduction, the following was used: automated exposure control, adjustment of mA and/or kV according to patient size. COMPARISON: [facility], CR, XR CHEST 1V, 07/16/2022, 19:15. FINDINGS: Image quality: Diagnostic. Lower Neck: No enlarged lymph nodes. Thyroid: No thyroid nodules which require sonographic follow up, per consensus guidelines. Axillae: No enlarged lymph nodes. Chest Wall: Unremarkable. Bones: Visualized osseous structures appear intact without acute fracture or focal destructive lesion. No acute compression fractures of the imaged spine. Lungs and Pleura: No pneumothorax. Right greater than left biapical scarring. There is moderate perihilar/bronchovascular scarring with associated traction bronchiectasis of the bilateral mid lung zones. Multiple associated calcified mediastinal and hilar lymph nodes. No suspicious hilar mass or adenopathy. Bronchovascular nodules are seen. Scattered pulmonary nodules are calcified. No honeycombing/pulmonary fibrosis. Multiple noncalcified pulmonary nodules are also noted. Some are partially calcified. Largest measures 8 mm and is seen in the lateral right lower lobe (132/series 3). No septal nodularity or suspicious pulmonary masses. Heart: Heart size is normal. No pericardial effusion. Coronary atherosclerotic vascular calcifications are noted. Thoracic Vessels: The aorta is normal size. Borderline enlargement of the main pulmonary artery likely sequela of chronic pulmonary arterial hypertension. Mediastinum and Michaelle: No enlarged lymph nodes. Esophagus: No wall thickening. Small hiatal hernia. Upper Abdomen: Visualized upper abdomen solid organs and bowel loops appear normal. IMPRESSION: Findings compatible with advanced sarcoidosis with moderate perihilar/bronchovascular scarring and traction bronchiectasis. Multiple scattered calcified hilar and mediastinal lymph nodes compatible with history of sarcoidosis. Multiple scattered pulmonary nodules, most of which are calcified. Largest noncalcified nodule measures 8 mm and is seen in the lateral right lower lobe. Recommend short interval follow-up chest CT in 3-6 months to document continued stability. No evidence for honeycombing/pulmonary fibrosis at this time period Dictated by: Demetrius العلي M.D. on 10/03/2023 at 16:17 Approved by: Demetrius العلي M.D. on 10/03/2023 at 16:27
== END ==
LOC: CT 14:29
PROVIDERS: Family Provider Physician Assistant Medical; PCP Physician Assistant Medical; Referring Provider Internal Medicine Pulmonary Disease; Visit Provider Internal Medicine Pulmonary Disease
DX: D86.0 Sarcoidosis of lung (principal); R91.8 Other nonspecific abnormal finding of lung field
CPT/HCPCS: 71250

== ENCOUNTER → 2024-03-08 17:06 | Outpatient (CLI) | payer MEDICARE, SELFPAY ==
[2022-08-12 17:13] VITALS: BMI 26.2
--- NOTE | 2024-03-08 17:07 | DI.MRI.S_ITS ---
PROCEDURE: MR CERVICAL SPINE WO CON INDICATIONS: RADICULOPATHY, CERVICAL REGION TECHNIQUE: Noncontrast sagittal T1 spin echo and T2 fast spin echo, sagittal STIR, foraminal oblique sagittal T2 fast spin echo, and axial gradient echo or T2 fast spin echo through the cervical spine. COMPARISON: [facility], MR, MR CERVICAL SPINE WITHOUT CONTRAST, 08/14/2020, 16:10 (images only, no report). [facility], CR, XR CERVICAL SPINE 2 OR 3 VIEWS, 02/11/2024, 13:18. [facility], MR, MR CERVICAL SPINE WO CON, 08/02/2019, 9:11. FINDINGS: Image quality: Excellent. Alignment and Curvature: There is minimal retrolisthesis seen at the C5-C6 level. There is overall straightening of the normal cervical lordosis. Bone Marrow: Marrow demonstrates normal overall signal. Spinal Cord: Visualized spinal cord has normal size and signal. No cerebellar tonsillar herniation. Paraspinous Soft Tissues: No paravertebral masses. Prevertebral soft tissues are normal in thickness. C2-C3: The disc height and disk signal are well-preserved. A mild degree of generalized disc osteophyte complex is seen. Mild facet joint hypertrophy is seen. There is moderate left-sided and no right-sided neural foraminal narrowing. No central canal narrowing is seen. These imaging findings have progressed compared to the prior study. C3-C4: The disc height and disk signal are relatively well-preserved. A mild degree of generalized disc osteophyte complex is seen. There is at least moderate bilateral facet hypertrophy, right worse than left. There is [id number] right-sided and moderate left-sided neural foraminal narrowing. Mild central canal narrowing is seen. When comparison is made with the prior images, these findings are similar. C4-C5: The disc height and disk signal are relatively well-preserved. A mild degree of generalized disc osteophyte complex is seen. Moderate the degree of left-sided neural foraminal narrowing is clearly progressed compared to 2020. to prominent facet hypertrophy is seen. There is no right-sided and there is at least moderate left-sided neural foraminal narrowing. No central canal narrowing is seen. C5-C6: There is at least moderate loss of disc height and disc signal seen. At least moderate disc osteophyte complex is seen. There is a central/left disc osteophyte protrusion. Uncovertebral joint hypertrophy is seen at this level. Mild facet joint hypertrophy is seen. There is moderate right-sided and at least moderate left-sided neural foraminal narrowing seen. Mild to moderate central canal narrowing is seen. These degenerative changes are clearly progressed compared to 202. C6-C7: Moderate loss of disc height is seen. Loss of disc signal is seen. Mild to moderate disc osteophyte complex is seen. Moderate facet joint hypertrophy is seen. There is at least moderate right-sided and mild left-sided neural foraminal narrowing. No significant central canal narrowing is seen. When comparison is made with the prior images, these findings are similar. C7-T1: Normal appearance. IMPRESSION: Multiple levels of cervical spine degenerative change can be seen, which are worst at C5-C6. The degenerative changes have progressed at several levels compared to 202. Dictated by: Mor Zepeda M.D. on 03/09/2024 at 10:09 Approved by: Mor Zepeda M.D. on 03/09/2024 at 10:15
== END ==
LOC: MRI 17:06
PROVIDERS: Family Provider Physician Assistant Medical; PCP Physician Assistant Medical; Referring Provider Physical Medicine & Rehabilitation; Visit Provider Physical Medicine & Rehabilitation
DX: M47.22 Other spondylosis with radiculopathy, cervical region (principal)
CPT/HCPCS: 72141